=== PATIENT | female | born 1940 | race Caucasian/White ===

== ENCOUNTER 2017-01-04 16:33 | Inpatient (IN) | payer OTHER, MEDICARE ==
[~2017-01-04] VITALS: Ht 157.5 cm; Wt 72.8 kg
[~2017-01-04 16:33] MED LIST: ASPI81TA28 PO; BCTROWC TOP; CHOL100027 PO; CITA10TA4 PO; CRG625 PO; CRS20 PO; CYAN10005 PO; DNSIS60 SQ; DXY100 PO; FERR325T5 PO; FLV1 PO; FLVHFA110 INH; IPRA-2 INH; JNV25 PO; LEVO75TA5 PO; LSX20 PO; MULT-190 PO; OXGN; PANT40TA PO; PRED20TA2 PO; SPRIN INH; SULF500T35 PO; ZINC50TA3 PO; [UNRECOGNIZED DRUG - CODE] PO; [UNRECOGNIZED DRUG - OTHER]; bipap
--- NOTE | 2017-01-04 16:59 | DIAGNOSTIC IMAGING REPORT ---
CHEST ONE VIEW PORTABLE CLINICAL HISTORY: 76 years-old Female presenting with EVALUATE RESPIRATORY DISTRESS.DYSPNEA. TECHNIQUE: Portable upright AP view of the chest was obtained. COMPARISON: 04/10/2017. FINDINGS: Atherosclerosis of aortic arch. Mildly prominent cardiac silhouette, unchanged. Minimal right basilar opacity may be present. Apparent irregular opacities in the right midlung likely represent overlapping vascular structures. No pleural effusion or pneumothorax. Osseous structures and upper abdomen normal. IMPRESSION: 1. Minimal right basilar atelectasis may be present. Otherwise no acute cardiopulmonary disease. Electronically signed by: Shaquille Zhu M.D. 01/04/2017 4:58 PM Dictated Date/Time: 01/04/2017 4:57 PM
--- NOTE | 2017-01-04 17:03 | EMERGENCY ROOM VISIT NOTE ---
History Report prepared by Azra: Gilda Real Under the Supervision of: Dr. Rajeev Gallegos D.O. First contact with patient: 16:35 Stated Complaint: SOB History of Present Illness The patient is a 76 year old female who presents to the Emergency Room with complaints of persistent shortness of breath that began yesterday. Per EMS the patient went to her PCP's office yesterday for increased swelling to her right lower extremity. EMS states that the patient was diagnosed with congestive heart failure and was noted to have an oxygen saturation of 70% in the office. EMS notes that the patient was placed on a new diuretic. EMS states that the patient wears BI-PAP at night. EMS notes that the patient was placed on c-pap enroute to the emergency department and states that has helped her shortness of breath. EMS reports that the patient is chronically on supplemental nasal cannula oxygen. The patient denies any chest pain. Source of History: patient, EMS Onset: yesterday Position: other (global) Quality: other (shortness of breath) Timing: other (persistent) Modifying Factors (Relieving): other (c-pap) Associated Symptoms: No chest pain Note: Associated Symptoms: Increased swelling to her right lower extremity. Review of Systems See HPI for pertinent positives & negatives. A total of 10 systems reviewed and were otherwise negative. Past Medical & Surgical Medical Problems: (1) Anemia of chronic disease (2) Asthma, allergic (3) Benign hypertension (4) Carotid stenosis, bilateral (5) Chronic obstructive lung disease (6) CKD (chronic kidney disease), stage III (7) COPD exacerbation (8) COPD exacerbation (9) Coronary artery disease (10) Crohn s disease (11) Diabetes mellitus type 2 (12) Diastolic CHF (13) Dyslipidemia (14) Encounter for removal of vascular catheter (15) Generalized anxiety disorder (16) History of PSVT (paroxysmal supraventricular tachycardia) (17) Hypothyroidism (18) Osteoporosis (19) Peristomal hernia (20) Respiratory failure, [id number] (21) Small bowel obstruction Surgical Problems: (1) Hernia repair (2) History of carpal tunnel surgery of right wrist (3) History of colostomy (4) S/P appendectomy (5) S/P cardiac cath (6) S/P hysterectomy (7) S/P tonsillectomy and adenoidectomy Family History Diabetes mellitus FH: cancer Heart disease Social History Smoking Status: Former Smoker Alcohol Use: none Drug Use: none Marital Status: , in relationship Housing Status: lives with family Occupation Status: retired Current/Historical Medications Scheduled Aspirin (Aspirin Ec), 81 MG PO DAILY Carvedilol (Carvedilol), 6.25 MG PO BID Cholecalciferol (Vitamin D 1000 Unit), 400 INTER.UNIT PO DAILY Citalopram Hydrobromide (Citalopram Hydrobromide), 10 MG PO DAILY Cyanocobalamin (Vitamin B-12), 1,000 MCG PO DAILY Denosumab (Prolia), 60 MG SQ Q 6 Months Ferrous Sulfate (Ferrous Sulfate), 325 MG PO DAILY Folic Acid (Folic Acid), 1 MG PO DAILY Furosemide (Furosemide), 20-40 MG PO DAILY Home O2 Therapy (Oxygen), 4 LITER NA CONTINOUS Ipratropium-Albuterol (Duoneb), 1 TREATMENT INH Q4H Levothyroxine Sodium (Levothyroxine Sodium), 75 MCG PO DAILY Mupirocin (Bactroban 2% Oint), Unknown Dose TOP TID Ocuvite Preservision (Ocuvite Preservision), 1 TAB PO BID Pantoprazole (Protonix), 40 MG PO BID Rosuvastatin Calcium (Crestor), 20 MG PO DAILY Sitagliptin (Januvia), 25 MG PO DAILY Sulfasalazine (Sulfasalazine), 2 TAB PO TID Tiotropium [place] (Spiriva Handihaler), 1 PUFF INH QAM Torsemide (Torsemide), 2 TAB PO DAILY Zinc (Zinc), 50 MG PO DAILY Durable Medical Equipment [Nocturnal pulse ox] [bipap] Allergies Coded Allergies: No Known Allergies (Verified , 01/04/17) Physical Exam Vital Signs Date Time Temp Pulse Resp B/P (MAP) Pulse Ox O2 Delivery O2 Flow Rate FiO2 01/04/17 18:28 83 20 96/85 98 Mask 4.0 01/04/17 17:09 85 01/04/17 16:51 100 Mask 4.0 01/04/17 16:51 100 Oxymask 4.0 01/04/17 16:45 36.6 99 22 131/53 100 Oxymask 4.0 Physical Exam GENERAL: Patient is awake, alert, somewhat anxious appearing. EYES: The conjunctivae are clear. The pupils are round and reactive. EARS, NOSE, MOUTH AND THROAT: The nose is without any evidence of any deformity. Mucous membranes are moist tongue is midline NECK: The neck is nontender and supple. RESPIRATORY: Diminished breath sounds throughout, rales noted at both bases. No tachypnea or conversational dyspnea. CARDIOVASCULAR: Regular rate and rhythm noted there no murmurs rubs or gallops normal S1 normal S2 GASTROINTESTINAL: The abdomen is soft. Bowel sounds are present in all quadrants. Abdomen is nontender MUSCULOSKELETAL/EXTREMITIES: There is no evidence of gross deformity full range of motion is noted in the hips and shoulders SKIN: Pedal edema noted bilaterally, right greater than left. No calf tenderness. NEUROLOGIC: Patient is awake alert and oriented x3. Medical Decision & Procedures ER Provider Diagnostic Interpretation: Radiology results as stated below per my review and radiologist interpretation: CHEST ONE VIEW PORTABLE CLINICAL HISTORY: 76 years-old Female presenting with EVALUATE RESPIRATORY DISTRESS.DYSPNEA. TECHNIQUE: Portable upright AP view of the chest was obtained. COMPARISON: 04/10/2017. FINDINGS: Atherosclerosis of aortic arch. Mildly prominent cardiac silhouette, unchanged. Minimal right basilar opacity may be present. Apparent irregular opacities in the right midlung likely represent overlapping vascular structures. No pleural effusion or pneumothorax. Osseous structures and upper abdomen normal. IMPRESSION: 1. Minimal right basilar atelectasis may be present. Otherwise no acute cardiopulmonary disease. Electronically signed by: Shaquille Zhu M.D. 01/04/2017 4:58 PM Dictated Date/Time: 01/04/2017 4:57 PM RIGHT VENOUS DOPP LOWER EXT UNILAT CLINICAL HISTORY: RLE pain Right pain. Edema. TECHNIQUE: Venous Doppler COMPARISON STUDY: None FINDINGS: Normal study IMPRESSION: Normal study The above report was generated using voice recognition software. It may contain grammatical, syntax or spelling errors. Electronically signed by: Chilo Wall M.D. 01/04/2017 5:52 PM Dictated Date/Time: 01/04/2017 5:52 PM Laboratory Results 01/04/17 17:00 Red Blood Count 2.94, Mean Corpuscular Volume 101.4, Mean Corpuscular Hemoglobin 29.9, Mean Corpuscular Hemoglobin Concent 29.5, Mean Platelet Volume 10.0, Neutrophils (%) (Auto) 64.1, Lymphocytes (%) (Auto) 19.9, Monocytes (%) ( Auto) 10.2, Eosinophils (%) (Auto) 4.8, Basophils (%) (Auto) 0.5, Neutrophils # (Auto) 5.44, Lymphocytes # (Auto) 1.69, Monocytes # (Auto) 0.87, Eosinophils # ( Auto) 0.41, Basophils # (Auto) 0.04 01/04/17 17:00 Test 01/04/17 17:00 01/04/17 17:30 White Blood Count 8.49 K/uL (4.8-10.8) Red Blood Count 2.94 M/uL (4.2-5.4) Hemoglobin 8.8 g/dL (12.0-16.0) Hematocrit 29.8 % (37-47) Mean Corpuscular Volume 101.4 fL (80-100) Mean Corpuscular Hemoglobin 29.9 pg (25-34) Mean Corpuscular Hemoglobin Concent 29.5 g/dl (32-36) Platelet Count 150 K/uL (130-400) Mean Platelet Volume 10.0 fL (7.4-10.4) Neutrophils (%) (Auto) 64.1 % Lymphocytes (%) (Auto) 19.9 % Monocytes (%) (Auto) 10.2 % Eosinophils (%) (Auto) 4.8 % Basophils (%) (Auto) 0.5 % Neutrophils # (Auto) 5.44 K/uL (1.4-6.5) Lymphocytes # (Auto) 1.69 K/uL (1.2-3.4) Monocytes # (Auto) 0.87 K/uL (0.11-0.59) Eosinophils # (Auto) 0.41 K/uL (0-0.5) Basophils # (Auto) 0.04 K/uL (0-0.2) RDW Standard Deviation 55.8 fL (36.4-46.3) RDW Coefficient of Variation 15.1 % (11.5-14.5) Immature Granulocyte % (Auto) 0.5 % Immature Granulocyte # (Auto) 0.04 K/uL (0.00-0.02) Hypochromasia PRESENT Stomatocytes 1+ Prothrombin Time 11.4 SECONDS (9.0-12.0) Prothromb Time International Ratio 1.1 (0.9-1.1) Activated Partial Thromboplast Time 25.1 SECONDS (21.0-31.0) Partial Thromboplastin Ratio 1.0 Anion Gap 2.0 mmol/L (3-11) Est Creatinine Clear Calc Drug Dose 28.9 ml/min Estimated GFR () 35.4 Estimated GFR (Non- 30.5 BUN/Creatinine Ratio 9.3 (10-20) Calcium Level 8.7 mg/dl (8.5-10.1) Total Bilirubin 0.2 mg/dl (0.2-1) Direct Bilirubin < 0.1 mg/dl (0-0.2) Aspartate Amino Transf (AST/SGOT) 16 U/L (15-37) Alanine Aminotransferase (ALT/SGPT) 13 U/L (12-78) Alkaline Phosphatase 65 U/L (45-117) Total Creatine Kinase 60 U/L (26-192) Pro-B-Type Natriuretic Peptide 1186 pg/ml (0-1800) Total Protein 7.3 gm/dl (6.4-8.2) Albumin 2.9 gm/dl (3.4-5.0) Venous Blood pH 7.31 (7.36-7.41) Venous Blood Partial Pressure CO2 90 mmHg (38.0-50.0) Venous Blood Partial Pressure O2 43 mmHg Venous Blood HCO3 44 mmol/L Venous Blood Oxygen Saturation 74.7 % Venous Blood Base Excess 15.4 mmol/L Laboratory results per my review. Medications Administered Medications (Trade) Dose Ordered Sig/Gilbert Route Start Time Stop Time Status Last Admin Dose Admin Albuterol/ Ipratropium (Duoneb) 3 ml NOW STAT INH 01/04/17 18:21 01/04/17 18:22 DC 01/04/17 18:36 3 ML ECG Indication: SOB/dyspnea Rate (beats per minute): 87 Rhythm: normal sinus Findings: ST depression (Lateral), no ectopy ED Course 1634: The patient was evaluated in room A9B. A complete history and physical examination were performed. 1820: Ordered DuoNeb 3 ml INH. 1823: I discussed the patients case with Marlon Antunez. She is going to evaluate the patient for further treatment. 1825: I reevaluated the patient and she is resting. I discussed the exam findings with her and her family and I discussed the treatment plan. They verbalized complete understanding and agreement. The patient will be evaluated for further treatment. Medical Decision Differential diagnosis: Etiologies such as infections, reactive airway disease, pneumonia, pneumothorax , COPD, CHF, cardiac ischemia, pulmonary embolism, musculoskeletal, gastrointestinal, as well as others were entertained. Nursing notes reviewed. The patient is a 76-year-old female who presented to the emergency department for an evaluation of shortness of breath. The patient was hypoxic reportedly prior to arrival. She was placed on BiPAP because of the severity of her symptoms. She arrived at the emergency Department significantly improved but still had signs of respiratory acidosis. I discussed the patient's laboratory radiographic studies with her. Because of her symptoms I discussed her case with the on-call [facility] hospitalist group. They've agreed to evaluate the patient in the emergency department for further management and disposition. Medication Reconcilliation Current Medication List: was personally reviewed by me Blood Pressure Screening Patient's blood pressure: Normal blood pressure Blood pressure disposition: Did not require urgent referral Consults Time Called: 1820 Consulting Physician: Marlon Antunez Returned Call: 1823 I discussed the patients case with Marlon Antunez. She is going to evaluate the patient for further treatment. Impression Primary Impression: Shortness of breath Additional Impressions: COPD exacerbation Anemia Respiratory acidosis Scribe Attestation The scribe's documentation has been prepared under my direction and personally reviewed by me in its entirety. I confirm that the note above accurately reflects all work, treatment, procedures, and medical decision making performed by me. Departure Information Dispostion Being Evaluated By Hospitalist Referrals Hakan Samano M.D. (PCP) Problem Qualifiers Additional Impressions: Anemia Anemia type: unspecified type Qualified Codes: D64.9 - Anemia, unspecified
[2017-01-04 17:23] LABS: INR 1.1 (0.9-1.1); PROTHROMBIN TIME (PATIENT) 11.4 SECONDS (9.0-12.0)
[2017-01-04 17:29] LABS: HEMATOCRIT 29.8 % (37-47); MEAN CELL VOLUME 101.4 fL (80-100); MEAN CORPUSCULAR HEMOGLOBIN 29.9 pg (25-34); MEAN CORPUSCULAR HGB CONC 29.5 g/dl (32-36); PLATELET COUNT 150 K/uL (130-400); RED BLOOD COUNT 2.94 M/uL (4.2-5.4); WHITE BLOOD COUNT 8.49 K/uL (4.8-10.8)
[2017-01-04 17:38] LABS: BASO % 0.5 %; BASO ABS # 0.04 K/uL (0-0.2); COMPLETE YES; EOS % 4.8 %; HYPOCHROMIA PRESENT; IG% 0.5 %; LYMPH % 19.9 %; LYMPH ABS # 1.69 K/uL (1.2-3.4); MONO % 10.2 %; NEUT % 64.1 %; STOMATOCYTE 1+
[2017-01-04 17:45] LABS: VEN BLD GAS O2 SATURATION 74.7 %; VEN BLOOD GAS BASE EXCESS 15.4 mmol/L
[2017-01-04 17:48] LABS: ALKALINE PHOSPHATASE 65 U/L (45-117); ALT/SGPT 13 U/L (12-78); AST/SGOT 16 U/L (15-37); BLOOD UREA NITROGEN 15 mg/dl (7-18); BUN/CREATININE RATIO 9.3 (10-20); CALCIUM 8.7 mg/dl (8.5-10.1); CARBON DIOXIDE 43 mmol/L (21-32); CHLORIDE 93 mmol/L (98-107); GLUCOSE 102 mg/dl (70-99); POTASSIUM 3.8 mmol/L (3.5-5.1); SODIUM 138 mmol/L (136-145)
--- NOTE | 2017-01-04 17:54 | DIAGNOSTIC IMAGING REPORT ---
RIGHT VENOUS DOPP LOWER EXT UNILAT CLINICAL HISTORY: RLE pain Right pain. Edema. TECHNIQUE: Venous Doppler COMPARISON STUDY: None FINDINGS: Normal study IMPRESSION: Normal study The above report was generated using voice recognition software. It may contain grammatical, syntax or spelling errors. Electronically signed by: Chilo Wall M.D. 01/04/2017 5:52 PM Dictated Date/Time: 01/04/2017 5:52 PM
[2017-01-04] MEDS ORDERED: IPRASOL4 INH (18:13)
[2017-01-04] MEDS ORDERED: DMD20 PO (18:13)
[2017-01-04] MEDS ORDERED: SLFEC500 PO (18:13)
[2017-01-04] MEDS ORDERED: SPRIN/30 INH (18:13)
[2017-01-04] MEDS ORDERED: ALBUT/IPRATROP 3MG/0.5MG NEB 3 ML VIAL INH STA (18:21)
[2017-01-04] MEDS ORDERED: ACETAMINOPHEN 325 MG TAB PO PRN (18:45)
[2017-01-04] MEDS ORDERED: ONDANSETRON INJ 2 MG/ML 2 ML VIAL IV PRN (18:45)
[2017-01-04] MEDS ORDERED: GLUCOSE 10 TABS/TUBE PO PRN (19:45)
[2017-01-04] MEDS ORDERED: GLUCAGON FOR INJ 1 MG VIAL SQ PRN (19:45)
[2017-01-04] MEDS ORDERED: GLUCOSE 40% GEL 15 GM TUBE PO PRN (19:45)
[2017-01-04] MEDS ORDERED: DEXTROSE 50% 50 ML SYR IV PRN (19:45)
[2017-01-04] MEDS ORDERED: NON-FORMULARY MEDICATION (Home O2 Therapy (Oxygen) 4 LITER) SCH (19:45)
[2017-01-04] MEDS: ALBUT/IPRATROP 3MG/0.5MG NEB 3 ML VIAL INH SCH (20:00)
--- NOTE | 2017-01-04 20:04 | History and Physical ---
History & Physical Date & Time of Service: Jan 04, 2017 at 19:48 Chief Complaint: SOB Primary Care Physician: Hakan Samano M.D. History of Present Illness Source: patient, family This is a 76yo F with a PMH of severe COPD, Diastolic CHF, HTN, DM II, CKD IV and CAD who presents with SOB over the past 2 months. States that she has become progressively more short of breath at rest, even on her home O2 of 4L. Her baseline for breathing is to experience SOB with positional change. Over the past month, she has started to have a pleuritic "pressure" with inspiration , with chest pain L>R. Additionally, she noticed a painless swelling of her R leg 3 weeks ago. Denies any calf pain or palpable cords. Was taken to the PCP by her daughter yesterday, where she was noted to have an oxygen saturation of 70%. Patient was started on a new diuretic and instructed to go to ED if SOB worsened. Today, the patient's daughter took her vitals at home and she was found to be hypoxic at 87% on 4L NC and to have a BP of 96/36. Was then brought into the ED by EMS on CPAP. Patient is now satting in the high 90s on a Oxymask. Endorses dyspnea, SOB and pleuritic pain with inspiration. Denies fever, chills, lightheadedness, confusion, cough, wheezing, palpitations, calf pain. Past Medical/Surgical History Medical Problems: (1) Anemia of chronic disease Status: Chronic (2) Asthma, allergic Status: Chronic (3) Benign hypertension Status: Chronic (4) Carotid stenosis, bilateral Permanent Comment: Carotid duplex 10/18/13- likely 70-99% stenosis both ICA Status: Chronic (5) Chronic obstructive lung disease Permanent Comment: Very Severe, on home O2 4L continuous Status: Chronic (6) CKD (chronic kidney disease), stage III Status: Chronic (7) Coronary artery disease Permanent Comment: S/p cath 2007- distal RCA 95% blockage corrected with balloon angioplasty, repeat cath June 2009 showed no significant obstructive disease. Status: Chronic (8) Crohn s disease Permanent Comment: s/p colostomy Status: Chronic (9) Diabetes mellitus type 2 Status: Chronic (10) Diastolic CHF Permanent Comment: echo 03/25/2015-EF = 60-65%; grade I diastolic dysfunction; mild mitral regurgitation Status: Chronic (11) Dyslipidemia Status: Chronic (12) Generalized anxiety disorder Status: Chronic (13) History of PSVT (paroxysmal supraventricular tachycardia) Status: Chronic (14) Hypothyroidism Status: Chronic (15) Osteoporosis Status: Chronic (16) Peristomal hernia Permanent Comment: s/p repair in 2009 and 2012 [place] [facility] [place]: Chronic (17) Small bowel obstruction Status: Resolved Surgical Problems: (1) Hernia repair Permanent Comment: 2009 and 2012 at [facility] [place] Status: Chronic (2) History of carpal tunnel surgery of right wrist Status: Chronic (3) History of colostomy Permanent Comment: [facility] [place]'s disease, 1999 Status: Chronic (4) S/P appendectomy Status: Chronic (5) S/P cardiac cath Permanent Comment: 2007- Distal RCA 95% blockage corrected with balloon angioplasty. Repeat cath June 2009 showed no significant obstructive disease. Status: Chronic (6) S/P hysterectomy Status: Chronic (7) S/P tonsillectomy and adenoidectomy Status: Chronic Family History Diabetes mellitus FH: cancer Heart disease Social History Smoking Status: Former Smoker Drug Use: none Marital Status: , in relationship Housing status: lives with family Occupational Status: retired Immunizations History of Influenza Vaccine: No History of Tetanus Vaccine?: Yes History of Pneumococcal: Yes History of Hepatitis B Vaccine: Yes Multi-Drug Resistant Organisms History of MDRO: No Allergies Coded Allergies: No Known Allergies (Verified , 01/04/17) Home Medications Scheduled Aspirin (Aspirin Ec), 81 MG PO DAILY Carvedilol (Carvedilol), 6.25 MG PO BID Cholecalciferol (Vitamin D 1000 Unit), 400 INTER.UNIT PO DAILY Citalopram Hydrobromide (Citalopram Hydrobromide), 10 MG PO DAILY Cyanocobalamin (Vitamin B-12), 1,000 MCG PO DAILY Denosumab (Prolia), 60 MG SQ Q 6 Months Ferrous Sulfate (Ferrous Sulfate), 325 MG PO DAILY Folic Acid (Folic Acid), 1 MG PO DAILY Furosemide (Furosemide), 20-40 MG PO DAILY Home O2 Therapy (Oxygen), 4 LITER NA CONTINOUS Ipratropium-Albuterol (Duoneb), 1 TREATMENT INH Q4H Levothyroxine Sodium (Levothyroxine Sodium), 75 MCG PO DAILY Mupirocin (Bactroban 2% Oint), Unknown Dose TOP TID Ocuvite Preservision (Ocuvite Preservision), 1 TAB PO BID Pantoprazole (Protonix), 40 MG PO BID Rosuvastatin Calcium (Crestor), 20 MG PO DAILY Sitagliptin (Januvia), 25 MG PO DAILY Sulfasalazine (Sulfasalazine), 2 TAB PO TID Tiotropium [place] (Spiriva Handihaler), 1 PUFF INH QAM Torsemide (Torsemide), 2 TAB PO DAILY Zinc (Zinc), 50 MG PO DAILY Review of Systems Ten systems reviewed and negative except as noted in the HPI. Physical Exam Vital Signs Date Time Temp Pulse Resp B/P (MAP) Pulse Ox O2 Delivery O2 Flow Rate FiO2 01/04/17 19:17 83 18 129/56 99 Mask 4.0 01/04/17 18:28 83 20 96/85 98 Mask 4.0 01/04/17 17:09 85 01/04/17 16:51 100 Mask 4.0 01/04/17 16:51 100 Oxymask 4.0 01/04/17 16:45 36.6 99 22 131/53 100 Oxymask 4.0 General Appearance: no apparent distress Head: normocephalic Eyes: normal inspection ENT: normal ENT inspection, hearing grossly normal Neck: supple Respiratory/Chest: chest non-tender, no respiratory distress, no accessory muscle use, + crackles (at bilateral bases) Cardiovascular: regular rate, rhythm, no murmur Abdomen/GI: normal bowel sounds (Colostomy bag visualized), non tender, soft, no organomegaly Back: normal inspection Extremities/Musculoskelatal: no calf tenderness, normal capillary refill, + pertinent finding (Edema of R>L. Not warm to touch.) Neurologic/Psych: no motor/sensory deficits, alert, normal mood/affect, normal reflexes, oriented x 3 Skin: normal color, warm/dry Diagnostics Laboratory Results Results Past 24 Hours Test 01/04/17 17:00 01/04/17 17:30 Range/Units White Blood Count 8.49 4.8-10.8 K/uL Red Blood Count 2.94 4.2-5.4 M/uL Hemoglobin 8.8 12.0-16.0 g/dL Hematocrit 29.8 37-47 % Mean Corpuscular Volume 101.4 80-100 fL Mean Corpuscular Hemoglobin 29.9 25-34 pg Mean Corpuscular Hemoglobin Concent 29.5 32-36 g/dl Platelet Count 150 130-400 K/uL Mean Platelet Volume 10.0 7.4-10.4 fL Neutrophils (%) (Auto) 64.1 % Lymphocytes (%) (Auto) 19.9 % Monocytes (%) (Auto) 10.2 % Eosinophils (%) (Auto) 4.8 % Basophils (%) (Auto) 0.5 % Neutrophils # (Auto) 5.44 1.4-6.5 K/uL Lymphocytes # (Auto) 1.69 1.2-3.4 K/uL Monocytes # (Auto) 0.87 0.11-0.59 K/uL Eosinophils # (Auto) 0.41 0-0.5 K/uL Basophils # (Auto) 0.04 0-0.2 K/uL RDW Standard Deviation 55.8 36.4-46.3 fL RDW Coefficient of Variation 15.1 11.5-14.5 % Immature Granulocyte % (Auto) 0.5 % Immature Granulocyte # (Auto) 0.04 0.00-0.02 K/uL Hypochromasia PRESENT Stomatocytes 1+ Prothrombin Time 11.4 9.0-12.0 SECONDS Prothromb Time International Ratio 1.1 0.9-1.1 Activated Partial Thromboplast Time 25.1 21.0-31.0 SECONDS Partial Thromboplastin Ratio 1.0 Sodium Level 138 136-145 mmol/L Potassium Level 3.8 3.5-5.1 mmol/L Chloride Level 93 98-107 mmol/L Carbon Dioxide Level 43 21-32 mmol/L Anion Gap 2.0 3-11 mmol/L Blood Urea Nitrogen 15 7-18 mg/dl Creatinine 1.60 0.60-1.20 mg/dl Est Creatinine Clear Calc Drug Dose 28.9 ml/min Estimated GFR () 35.4 Estimated GFR (Non- 30.5 BUN/Creatinine Ratio 9.3 10-20 Random Glucose 102 70-99 mg/dl Calcium Level 8.7 8.5-10.1 mg/dl Total Bilirubin 0.2 0.2-1 mg/dl Direct Bilirubin < 0.1 0-0.2 mg/dl Aspartate Amino Transf (AST/SGOT) 16 15-37 U/L Alanine Aminotransferase (ALT/SGPT) 13 12-78 U/L Alkaline Phosphatase 65 45-117 U/L Total Creatine Kinase 60 26-192 U/L Creatine Kinase MB 1.8 0.5-3.6 ng/ml Creatine Kinase MB Ratio 3.0 0-3.0 Troponin I 0.021 0-0.045 ng/ml Pro-B-Type Natriuretic Peptide 1186 0-1800 pg/ml Total Protein 7.3 6.4-8.2 gm/dl Albumin 2.9 3.4-5.0 gm/dl Venous Blood pH 7.31 7.36-7.41 Venous Blood Partial Pressure CO2 90 38.0-50.0 mmHg Venous Blood Partial Pressure O2 43 mmHg Venous Blood HCO3 44 mmol/L Venous Blood Oxygen Saturation 74.7 % Venous Blood Base Excess 15.4 mmol/L Diagnostic Radiology CXR: Minimal R basilar atelectasis. No acute changes. Lower Extremity U/S: normal Normal EKG Impression Assessment and Plan This is a 76yo F with a PMH of severe COPD, Diastolic CHF, HTN, DM II, CKD IV and CAD who presents with SOB over the past 2 months. Shortness of breath: -Multifactorial, due to COPD, CHF -CXR shows minimal R basilar atelectasis. No acute changes. -Afebrile, no leukocytosis, no consolidation on XR, so not likely precipitated by infection -PE considered with unilateral leg swelling, sedentary lifestyle, pleuritic CP -VQ scan ordered -Echo ordered -Started PO prednisone, home torsemide, continue with Oxymask, around the clock nebs and monitor vitals Chest pain rule out: -Pleuritic pain/pressure, worse with inspiration -R/o ACS; risk factors include HTN, DM II, CAD -Initial troponin: negative -EKG- NSR -CXR- no acute changes -Trend serial cardiac enzymes -Check echo -Repeat EKG in am R leg swelling: -PE considered with unilateral leg swelling, sedentary lifestyle for weeks, pleuritic CP -Lower extremity U/S without evidence of DVT -Moderate risk by Well's criteria -VQ scan ordered instead of CTA due to elevated Cr in the setting of CKD IV Diastolic HF 2/2 HTN: -BNP elevated to 1,186 -Echo ordered (EF 55-60% as of 10/2012) -Continue Torsemide 40mg daily COPD: -SOB at rest for 1-2 months with associated pleuritic CP -Home regimen for COPD includes 4L home O2, duonebs, inhalers -Continue neb treatments, prednisone, BiPap at night -ABG showing chronic compensated respiratory acidosis (pH: 7.34, pCO2: 80, HCO3 : 44) DM II: stable -Last hgb a1c 6.4 (10/2016) -Hold home meds. SSI while in-patient -BG checks AC and qHS CKD IV: -Cr is 1.6, which is at baseline -Avoid nephrotoxic drugs -Check BMP in AM Macrocytic Anemia: -Hgb of 8.8 (baseline 9.4) and MCV of 101.4 -Continue with folate and Vit B12 supplements Hypothyroidism: -Continue home meds DVT Ppx: Heparin Code status: FULL PCP: [facility] Dispo: Likely discharge home once medically stable. PT/OT evals requested. Attending addendum: Agree with the above H&P; please refer to above for more details Patient was brought to the ER for complaints that the patient seems more SOB, more sedentary, and with worsening LE edema. She was seen by her PCP yesterday and was given torsemide and seemed to respond with more urine output, however her edema and SOB persisted and thus the patient was brought to the hospital. Per outpatient notes the patient was hypoxic with O2 sat of 70% yesterday. When her family checked the patients vitals at home, BP was lower than usual SBP in 90's, and oxygen sats were in the 80's. Cardiac: RR, S1 and S2 auscultated, LE edema, no JVD Resp: bibasilar crackles noted, no wheezes, diminished breath sounds GI: soft NT, ND, +BS ACUTE ON CHRONIC RESPIRATORY FAILURE: -hypercapnia and hypoxia prior to ER arrival -likely multifactorial from CHF and possibly COPD, however need to rule out PE -continue with diuresis as tolerated -ABG -monitor daily BMP -daily weights -PO prednisone started -continue with nebs and home meds -obtain a TTE -LE doppler negative -will get VQ scan as unable to do a contrast chest CT due to renal function Level of Care Telemetry Resuscitation Status FULL RESUSCITATION VTE Prophylaxis VTE Risk Assessment Done? Y/N: Yes Risk Level: Moderate Given or contraindicated: Unfractionated heparin SQ
[2017-01-04 20:16] LABS: ALLEN TEST POS (POS); ARTERIAL BLD GAS O2 SATURATION 91.1 % (90-95); ARTERIAL BLOOD GAS BASE EXCESS 15.8 mEq/L (-9-1.8); ARTERIAL BLOOD GAS HCO3 44 mmol/L (19-24); ARTERIAL BLOOD GAS PO2 73 mm/Hg (80-95); ARTERIAL BLOOD GAS pH 7.34 (7.35-7.45); O2 ADMINISTRATION 4 L
[2017-01-04] MEDS: INSULIN ASPART 100 UNITS/ML 3 ML PEN SC SCH (21:00)
[2017-01-04 21:15] VITALS: BP 126/55; PULSE 86; TEMP 36.6; O2SAT 97; Ht 157.5 cm; Wt 72.8 kg
[2017-01-04] MEDS: CARVEDILOL 6.25 MG TAB PO SCH (21:47)
[2017-01-04] MEDS: CEROVITE ADV FORMULA TAB PO SCH (21:47)
[2017-01-04] MEDS: SULFASALAZINE 500 MG TABEC PO SCH (21:48)
[2017-01-04] MEDS: PANTOprazole SOD 40 MG TAB PO SCH (21:48)
[2017-01-04] MEDS ORDERED: LORAZEPAM 0.5 MG TAB PO ONE (22:15)
[2017-01-04] MEDS: HEPARIN SOD 5000 UNIT/0.5 ML CARP SQ SCH (22:48)
[2017-01-04 23:20] VITALS: PULSE 75; O2SAT 96
[2017-01-04 23:50] VITALS: O2SAT 94
[2017-01-04 23:59] VITALS: BP 129/42; PULSE 81; TEMP 36.5; O2SAT 99
[2017-01-05] VITALS (23 sets, daily range): BP systolic 102–128; BP diastolic 42–67; PULSE 78–100; TEMP 36.5–37; O2SAT 74–100
[2017-01-05 05:31] LABS: HEMATOCRIT 27.5 % (37-47); MEAN CELL VOLUME 101.1 fL (80-100); MEAN CORPUSCULAR HEMOGLOBIN 29.8 pg (25-34); MEAN CORPUSCULAR HGB CONC 29.5 g/dl (32-36); MEAN PLATELET VOLUME 10.1 fL (7.4-10.4); PLATELET COUNT 128 K/uL (130-400); RED BLOOD COUNT 2.72 M/uL (4.2-5.4); WHITE BLOOD COUNT 7.15 K/uL (4.8-10.8)
[2017-01-05] MEDS: LEVOTHYROXINE 75 MCG TAB PO SCH (05:43)
[2017-01-05 06:31] LABS: BLOOD UREA NITROGEN 14 mg/dl (7-18); BUN/CREATININE RATIO 10.3 (10-20); CALCIUM 8.6 mg/dl (8.5-10.1); CARBON DIOXIDE 45 mmol/L (21-32); CHLORIDE 92 mmol/L (98-107); GLUCOSE 95 mg/dl (70-99); POTASSIUM 3.2 mmol/L (3.5-5.1); SODIUM 139 mmol/L (136-145)
[2017-01-05] MEDS: ALBUT/IPRATROP 3MG/0.5MG NEB 3 ML VIAL INH SCH ×4 (07:17→19:45)
--- NOTE | 2017-01-05 07:17 | Clinical Documentation Query ---
MENA Harrison : CLINICAL DOCUMENTATION QUERIES QUERY 1 OF 2 Patient is a 76 year old female presenting for evaluation and treatment of SOB. Documentation includes "diastolic CHF 2/2 HTN". Consider explicit documentation of acuity as this cannot be assumed by the professional rehab manager. Thank you. In your clinical opinion is this patient being managed for: ( ) Acute on chronic diastolic (congestive) heart failure ( ) Other explanation of clinical findings (Please Explain) ( ) Unable to determine (Please Define) ( ) Need to Discuss ( ) Not Agree The medical record reflects the following clinical findings, treatment, and risk factors. Clinical Indicators: As above Treatment: Echocardiogram, Bumex, ICU admission, oxygen, I/O, daily weights. Risk Factors: Age, hypertension QUERY 2 OF 2 Patient noted to utilize home O2 at 4L/min. At PCP office, SpO2 noted to be 70%. Day of admission, noted to be 87% on home dose of supplemental O2. Additionally, ABG noted a nearly compensated respiratory acidosis with significant hypercarbia noted in the setting of COPD. As appropriate, consider capture of the severity of these conditions as noted below as there appear to be both acute, chronic, hypercarbic, and hypoxemic components in this patient. In your clinical opinion is this patient being managed for: ( ) Acute on chronic hypoxic and chronic hypercarbic respiratory failure ( ) Other explanation of clinical findings (Please Explain) ( ) Unable to determine (Please Define) ( ) Need to Discuss ( ) Not Agree The medical record reflects the following clinical findings, treatment, and risk factors. Clinical Indicators: Treatment: Supplemental O2, initially CPAP, radiology, VQ scan, echocardiogram, Torsemide, prednisone, neb treatments, BiPAP at HS Risk Factors:COPD, diastolic CHF Please clarify and document your clinical opinion in the progress notes and discharge summary. Terms such as "probable", "suspected", "likely", "questionable", "possible", or "still to be ruled out" are acceptable. IF IN AGREEMENT, YOU MUST DOCUMENT ABOVE DIAGNOSTIC STATEMENT IN DAILY PROGRESS NOTES AND DISCHARGE SUMMARY. This document is not part of the patient's record. Thank You, Joselo Casas, RN [phone]
[2017-01-05] MEDS: TIOTROPIUM BROMIDE 5 PUFF/90 MCG INH INH SCH (08:23)
[2017-01-05] MEDS: SULFASALAZINE 500 MG TABEC PO SCH ×3 (08:24→20:08)
[2017-01-05] MEDS: ZINC SULFATE 220 MG CAP PO SCH (08:24)
[2017-01-05] MEDS: CITALOPRAM 20 MG TAB PO SCH (08:24)
[2017-01-05] MEDS: PANTOprazole SOD 40 MG TAB PO SCH ×2 (08:24→20:09)
[2017-01-05] MEDS: TORSEMIDE 20 MG TAB PO SCH (08:25)
[2017-01-05] MEDS: ROSUVASTATIN CALCIUM 20 MG TAB PO SCH (08:25)
[2017-01-05] MEDS: CEROVITE ADV FORMULA TAB PO SCH ×2 (08:26→20:09)
[2017-01-05] MEDS: ASPIRIN 81 MG ECTAB PO SCH (08:27)
[2017-01-05] MEDS: CHOLECALCIFEROL 1000 INTER.UNIT TAB PO SCH (08:28)
[2017-01-05] MEDS: FERROUS SULFATE 325 MG TAB PO SCH (08:28)
[2017-01-05] MEDS: CARVEDILOL 6.25 MG TAB PO SCH ×2 (08:29→20:08)
[2017-01-05] MEDS: CYANOCOBALAMIN 500 MCG TAB (VIT B-12) PO SCH (08:29)
[2017-01-05] MEDS: INSULIN ASPART 100 UNITS/ML 3 ML PEN SC SCH ×4 (08:31→20:29)
[2017-01-05] MEDS: HEPARIN SOD 5000 UNIT/0.5 ML CARP SQ SCH ×2 (08:33→20:13)
--- NOTE | 2017-01-05 10:44 | Pulmonary Consultation ---
History General Date of Service: Jan 05, 2017. Stated Complaint: Copd Exacerbation HPI The patient is a 76 year old female who presents to [facility] with complaints of Copd Exacerbation. The patient's primary care provider is Hakan Samano M.D.. Mrs. Hardwick is a 68-year-old female with history of severe COPD (FEV1 of only 20%) on 4 L home oxygen and BiPAP at night, diastolic CHF, diabetes type 2 , hypertension, coronary artery disease and chronic kidney disease stage IV who was admitted on 01/04/2017 for progressive dyspnea at rest. He states that over the last few days shes had increasing pleuritic chest pain on deep inspiration on the left side greater than the right as well as right lower extremity swelling for the last 3 weeks. She normally has dyspnea on exertion with minimal position changes however felt that her breathing was more labored. She saw her PMD 1 day prior to admission he noted that her pulse oximetry was in the 70s and started her on a new diuretic for possible congestive heart failure. Her daughter checked her vital signs at home and noticed that she was hypoxic at 87% on 4 L nasal cannula at which was associated with a blood pressure of 96/36. At that time they called EMS for transfer to emergency room. She is currently being followed by Dr. Pabon. She is currently on Atrovent HFA 2 puff q6h, Budesonide via nebulizer BID, Spiriva handihaler 1 puff daily, Performist nebulizer q12h and Xopenex 2 puffs q6h.She has history of previous intubation in June 2012. She denies any fevers, chills, hemoptysis, chest tightness or wheezing. She has chronic cough with thick yellowish to greenish sputum. She states that its relatively unchanged. She denies any sick contacts or recent travel. Her baseline exercise tolerance is limited due to baseline shortness of breath on exertion. She can only walk a few steps. In the ER her initial vital signs were P 83, BP 96/85, RR 20, SaO2 98% on 4L facemask. Hematology labs significant for hemoglobin of 8.1, MCV of 101, platelet 128. Chemistry significant for potassium of 3.2, carbon dioxide 45, BUN of 14 and creatinine of 1.4. Troponin 0.021, 0.022. Her proBNP was 1186. Albumin was 2.9 ABG showed a pH of 7.34, PCO2 of 83, PO2 of 73, calculated bicarbonate of 44 and oxygen saturation of 91.1%. Chest x-ray was done which showed minimal right basilar atelectasis. Right venous Doppler lower extremity showed no DVT. She was admitted for acute on chronic hypercapnic respiratory failure. She was initially placed on titrated to oxygen mask She was started on prednisone 40 mg daily, Spiriva HandiHaler 1 puff, ipratropium/albuterol inhaler 4 times daily for a respiratory standpoint. She continues to be on torsemide for diuretic. Vital signs this morning, 36.5C blood pressure 116/48, pulse 78-84, respiratory rate 618-20 pulse ox 96- percent on 3-6 L nasal cannula. She states that she is feeling much better. All Other Symptoms All Other Systems: Reviewed and Negative Past Medical History Past Medical History: Past medical history Severe COPD on long-term oxygen therapy 4 L nasal cannula (COPD Class D) Acute on chronic hypoxic respiratory failure requiring intubation will Diabetes type 2 Anemia of chronic disease Hypothyroidism Hypertension CK D stage III CAD status post cath in 2007distal RCA 95% blockage corrected with balloon angioplasty, repeat June 2009 showed specific significant obstructive disease Diastolic CHFTTE done on 03/25/2015 showed EF is 60-65%, with grade 1 diastolic dysfunction and mild mitral regurgitation Paroxysmal supraventricular tachycardia Coronary stenosis bilaterally, carotid duplex on 10/18/2013likely 70-99% stenosis both ICA Crohns disease status post colostomy in 1999 hernia status post repair in 2009 and 2012 at [facility] [place] Dyslipidemia Generalized anxiety disorder Past Surgical History: Surgical history Hernia repair Carpal tunnel surgery of right wrist Colostomy for Crohns disease in 1999 Appendectomy Cardiac cath in 2007 and repeat cath in 2009 Hysterectomy Tonsillectomy and adenoidectomy Family History Diabetes mellitus FH: cancer Heart disease Family history Father from cancer, mother from diabetes and heart disease. Social History Social history Previous tobacco use of 60 pack years quit in [id number] alcohol use or illicit drug use. She is retired. No occupational known exposures. Hx Tobacco Use In Past Year?: No (QYUIT IN 2007) Smoking Status: Former Smoker Marital status: , in relationship Housing status: lives with family Occupational Status: retired Immunizations History of Influenza Vaccine: No History of Tetanus Vaccine?: Yes History of Pneumococcal: Yes History of Hepatitis B Vaccine: Yes History of MDRO History of MDRO: No Allergies Coded Allergies: No Known Allergies (Verified , 01/04/17) Current Medications Reported Home Medications Medications Dose Route/Sig Max Daily Dose Days Date Category Dose Instructions Sulfasalazine 500 Mg Tabec 2 Tab PO TID 01/04/17 Reported Duoneb (Ipratropium-Albuterol) 3 Ml Nebu 1 Treatment INH Q4H 01/04/17 Reported Spiriva Handihaler (Tiotropium Jewett) 30 Puff/540 Mcg Aerp 1 Puff INH QAM 01/04/17 Reported Torsemide 20 Mg Tab 2 Tab PO DAILY 01/04/17 Reported Bactroban 2% Oint (Mupirocin) Unknown Strength Oint Unknown Dose TOP TID 04/10/16 Reported Ocuvite Preservision (Multivitamins/Minerals) 1 Tab Tab 1 Tab PO BID 04/10/16 Reported Protonix (Pantoprazole Sodium) 40 Mg Tab 40 Mg PO BID 04/10/16 Reported [Nocturnal pulse ox] 12/11/15 Rx Overnight pulse oximetry study on 4 L via nasal cannula [bipap] 12/11/15 Rx BiPap tubing, mask Settings: 04/09 with oxygen Aspirin Ec (Aspirin) 81 Mg Tab 81 Mg PO DAILY 12/07/15 Reported Ferrous Sulfate 325 Mg Tab 325 Mg PO DAILY 12/07/15 Reported Folic Acid 1 Mg Tab 1 Mg PO DAILY 12/07/15 Reported Citalopram Hydrobromide 10 Mg Tab 10 Mg PO DAILY 12/07/15 Reported Crestor (Rosuvastatin Calcium) 20 Mg Tab 20 Mg PO DAILY 12/07/15 Reported Furosemide 20 Mg Tab 20-40 Mg PO DAILY 12/07/15 Reported Carvedilol 6.25 Mg Tab 6.25 Mg PO BID 12/07/15 Reported Januvia (Sitagliptin) 25 Mg Tab 25 Mg PO DAILY 12/07/15 Reported Levothyroxine Sodium 75 Mcg Tab 75 Mcg PO DAILY 03/25/15 Reported Prolia (Denosumab) 60 Mg/1 Ml Inj 60 Mg SQ Q 6 MONTHS 07/26/14 Reported Zinc 50 Mg Tab 50 Mg PO DAILY 01/21/13 Reported Vitamin B-12 (Cyanocobalamin) 1,000 Mcg Tab 1,000 Mcg PO DAILY 01/21/13 Reported Oxygen Gas 4 Liter NA CONTINOUS 01/21/13 Reported Vitamin D 1000 Unit (Cholecalciferol) 1,000 Unit Cap 400 Inter.unit PO DAILY 06/09/12 Reported Physical Physical Exam Vital Signs: Date Time Temp Pulse Resp B/P (MAP) Pulse Ox O2 Delivery O2 Flow Rate FiO2 01/05/17 09:49 84 17 107/42 (63) 95 01/05/17 09:46 100 19 106/43 (64) 74 01/05/17 09:42 85 19 128/50 (76) 01/05/17 09:00 85 17 94 01/05/17 08:15 36.8 82 20 102/48 (66) 98 Nasal Cannula 4.0 01/05/17 08:00 85 22 94 01/05/17 08:00 96 Nasal Cannula 4.0 01/05/17 07:15 84 16 99 Nasal Cannula 3.0 01/05/17 07:00 82 23 100 01/05/17 04:00 96 BiPAP 6.0 01/05/17 04:00 36.5 78 20 116/48 (70) 96 BiPAP 6.0 01/04/17 23:59 36.5 81 14 129/42 (71) 99 BiPAP 6.0 01/04/17 23:59 BiPAP 6.0 01/04/17 23:50 94 6.0 01/04/17 23:20 75 96 4.0 01/04/17 21:15 36.6 86 20 126/55 97 Nasal Cannula 4.0 01/04/17 20:34 88 20 138/56 96 Mask 4.0 01/04/17 19:17 83 18 129/56 99 Mask 4.0 01/04/17 18:28 83 20 96/85 98 Mask 4.0 01/04/17 17:09 85 01/04/17 16:51 100 Mask 4.0 01/04/17 16:51 100 Oxymask 4.0 01/04/17 16:45 36.6 99 22 131/53 100 Oxymask 4.0 General Appearance: WELL-APPEARING, WD/WN, NO APPARENT DISTRESS Head: NORMOCEPHALIC, ATRAUMATIC Eyes: PERRLA, NO DISCHARGE, EOMI, SCLERAE NORMAL, CONJUNCTIVAE NORMAL ENT: NORMAL NASAL EXAM, NORMAL MOUTH EXAM Neck: NORMAL RANGE OF MOTION, NO TENDERNESS, TRACHEA MIDLINE, NO STRIDOR, SUPPLE (Decrease breath sounds bilaterally, no crackles or wheezes present) Respiratory: NO RESPIRATORY DISTRESS (Decreased breath sounds bilaterally, no crackles or wheezes heard. No use of accessory muscles of respiration. Speaking in full sentences.) Cardiovasular: REGULAR RATE/RHYTHM, NORMAL S1S2, NO MURMUR, NORMAL PERIPHERAL PULSES Abdomen: NON TENDER, NORMAL BOWEL SOUNDS (Colostomy bag present) Genitourinary - Female: EXTERNAL GENITALIA NORMAL Back: NORMAL INSPECTION, NO MIDLINE TENDERNESS Edema: Bilateral LE (1+) Neuro: ALERT, ORIENTED x 3, NORMAL SPEECH Psychiatric: NORMAL AFFECT, NO SUICIDAL IDEATION, CONTRACTS FOR SAFETY Diagnostics Labs Results Past 24 Hours Test 01/04/17 17:00 01/04/17 17:30 01/04/17 20:06 01/04/17 21:58 Range/Units White Blood Count 8.49 4.8-10.8 K/uL Red Blood Count 2.94 4.2-5.4 M/uL Hemoglobin 8.8 12.0-16.0 g/dL Hematocrit 29.8 37-47 % Mean Corpuscular Volume 101.4 80-100 fL Mean Corpuscular Hemoglobin 29.9 25-34 pg Mean Corpuscular Hemoglobin Concent 29.5 32-36 g/dl Platelet Count 150 130-400 K/uL Mean Platelet Volume 10.0 7.4-10.4 fL Neutrophils (%) (Auto) 64.1 % Lymphocytes (%) (Auto) 19.9 % Monocytes (%) (Auto) 10.2 % Eosinophils (%) (Auto) 4.8 % Basophils (%) (Auto) 0.5 % Neutrophils # (Auto) 5.44 1.4-6.5 K/uL Lymphocytes # (Auto) 1.69 1.2-3.4 K/uL Monocytes # (Auto) 0.87 0.11-0.59 K/uL Eosinophils # (Auto) 0.41 0-0.5 K/uL Basophils # (Auto) 0.04 0-0.2 K/uL RDW Standard Deviation 55.8 36.4-46.3 fL RDW Coefficient of Variation 15.1 11.5-14.5 % Immature Granulocyte % (Auto) 0.5 % Immature Granulocyte # (Auto) 0.04 0.00-0.02 K/uL Hypochromasia PRESENT Stomatocytes 1+ Prothrombin Time 11.4 9.0-12.0 SECONDS Prothromb Time International Ratio 1.1 0.9-1.1 Activated Partial Thromboplast Time 25.1 21.0-31.0 SECONDS Partial Thromboplastin Ratio 1.0 Sodium Level 138 136-145 mmol/L Potassium Level 3.8 3.5-5.1 mmol/L Chloride Level 93 98-107 mmol/L Carbon Dioxide Level 43 21-32 mmol/L Anion Gap 2.0 3-11 mmol/L Blood Urea Nitrogen 15 7-18 mg/dl Creatinine 1.60 0.60-1.20 mg/dl Est Creatinine Clear Calc Drug Dose 28.9 ml/min Estimated GFR () 35.4 Estimated GFR (Non- 30.5 BUN/Creatinine Ratio 9.3 10-20 Random Glucose 102 70-99 mg/dl Calcium Level 8.7 8.5-10.1 mg/dl Total Bilirubin 0.2 0.2-1 mg/dl Direct Bilirubin < 0.1 0-0.2 mg/dl Aspartate Amino Transf (AST/SGOT) 16 15-37 U/L Alanine Aminotransferase (ALT/SGPT) 13 12-78 U/L Alkaline Phosphatase 65 45-117 U/L Total Creatine Kinase 60 26-192 U/L Creatine Kinase MB 1.8 0.5-3.6 ng/ml Creatine Kinase MB Ratio 3.0 0-3.0 Troponin I 0.021 0-0.045 ng/ml Pro-B-Type Natriuretic Peptide 1186 0-1800 pg/ml Total Protein 7.3 6.4-8.2 gm/dl Albumin 2.9 3.4-5.0 gm/dl Venous Blood pH 7.31 7.36-7.41 Venous Blood Partial Pressure CO2 90 38.0-50.0 mmHg Venous Blood Partial Pressure O2 43 mmHg Venous Blood HCO3 44 mmol/L Venous Blood Oxygen Saturation 74.7 % Venous Blood Base Excess 15.4 mmol/L Arterial Blood pH 7.34 7.35-7.45 Arterial Blood Partial Pressure CO2 83 35-46 mmHg Arterial Blood Partial Pressure O2 73 80-95 mm/Hg Arterial Blood HCO3 44 19-24 mmol/L Arterial Blood Oxygen Saturation 91.1 90-95 % Arterial Blood Base Excess 15.8 -9-1.8 mEq/L Arterial Blood Gas Delivery 4 L Fasutino Test POS POS Bedside Glucose 131 70-90 mg/dl Test 01/04/17 23:00 01/04/17 23:50 01/05/17 04:55 Range/Units Creatine Kinase MB Ratio 0-3.0 Creatine Kinase MB 1.9 1.5 0.5-3.6 ng/ml Troponin I 0.021 0.022 0-0.045 ng/ml White Blood Count 7.15 4.8-10.8 K/uL Red Blood Count 2.72 4.2-5.4 M/uL Hemoglobin 8.1 12.0-16.0 g/dL Hematocrit 27.5 37-47 % Mean Corpuscular Volume 101.1 80-100 fL Mean Corpuscular Hemoglobin 29.8 25-34 pg Mean Corpuscular Hemoglobin Concent 29.5 32-36 g/dl RDW Standard Deviation 55.6 36.4-46.3 fL RDW Coefficient of Variation 15.1 11.5-14.5 % Platelet Count 128 130-400 K/uL Mean Platelet Volume 10.1 7.4-10.4 fL Sodium Level 139 136-145 mmol/L Potassium Level 3.2 3.5-5.1 mmol/L Chloride Level 92 98-107 mmol/L Carbon Dioxide Level 45 21-32 mmol/L Anion Gap 2.0 3-11 mmol/L Blood Urea Nitrogen 14 7-18 mg/dl Creatinine 1.40 0.60-1.20 mg/dl Est Creatinine Clear Calc Drug Dose 31.2 ml/min Estimated GFR () 41.6 Estimated GFR (Non- 35.9 BUN/Creatinine Ratio 10.3 10-20 Random Glucose 95 70-99 mg/dl Calcium Level 8.6 8.5-10.1 mg/dl Previous studies Microbiology 09/15/2015 sputum positive for Pseudomonas aeruginosa 03/25/2015 sputum positive for pseudomonas aeruginosa 08/13/2014 urine culture positive for Escherichia coli and Providencia Rettgeri 07/26/2014 urine culture positive for gamma strep not enterococcus 06/20/2012 tracheal bronchial washings positive for Irene albicans 06/11/2012 sputum from vent suction trap positive for Irene albicans 02/12/2010 urine culture positive for Gardnerella like bacilli Thoracentesis 06/20/2012 was negative for any bacterial fungal or AFB growth. It was also negative for malignant cells. Diagnostic Radiology Chest x-ray 01/04/2017 FINDINGS: Atherosclerosis of aortic arch. Mildly prominent cardiac silhouette, unchanged. Minimal right basilar opacity may be present. Apparent irregular opacities in the right midlung likely represent overlapping vascular structures. No pleural effusion or pneumothorax. Osseous structures and upper abdomen normal. IMPRESSION: 1. Minimal right basilar atelectasis may be present. Otherwise no acute cardiopulmonary disease. CT thoracic spine 04/10/2016 IMPRESSION: 1. Multilevel degenerative change. No acute fractures or traumatic subluxations identified 2. Pulmonary emphysema 3. Lower lobe bronchial wall thickening and mucous plugging 4. 11 mm left upper lobe pulmonary nodule. A 2 month follow-up study is recommended. CT chest from 03/27/2015 IMPRESSION: 1. Dense consolidative airspace opacity involving the majority of the right lower lobe which has progressed. There is also near complete opacification of the right lower lobe segmental bronchi. Findings may represent a pneumonia, possible secondary to aspiration. However, an underlying right lower lobe mass could also have a similar appearance. Follow-up bronchoscopy should be considered for further evaluation. 2. Small right and trace left pleural fusion. 3. Emphysema. 4. A single enlarged subcarinal lymph node which is increased in size. This bears watching on future examinations. 5. Spiculated 1 cm nodule within the right upper lobe remains unchanged. This also requires follow-up. EKG EKG from 01/04/2017 Ventricular rate of 87 bpm Normal sinus rhythm Normal ECG When compared with ECG of 11-APR-2016 06:37, Impression Assessment and Plan Acute on chronic hypoxic and hypercapnic respiratory failure secondary to end- stage COPD Diastolic dysfunction Continue supplemental oxygen therapy however be careful not to hyperoxygenate patient as this can worsen carbon dioxide levels. Continue with BiPAP at night and for increased work of breathing. Repeat ABG. Continue with Spiriva, Symbicort as well as Atrovent/ albuterol nebulizer treatments Obtain sputum culture. Continue with corticosteroids for 5-7 days Treat with Levaquin for 5-7 days. Will start daliresp to decrease risk of exacerbation Continue with flutter valve and aggressive chest PT. Patient will likely benefit from a pulmonary rehab program as an outpatient. Nutritional status should be optimized. She should follow up with Dr. Pabon upon discharge. I appreciate the consult and will continue to follow with you.
[2017-01-05] MEDS ORDERED: LEVOFLOXACIN / D5W 500 MG in PREMIXED IN D5W 100 ML IV ONE (11:00)
--- NOTE | 2017-01-05 11:05 | ECHOCARDIOGRAM REPORT ---
*NOTICE TO RECEIVING DEMOCRAT AGENCY This information is strictly Confidential and protected under [place] law. [place] law prohibits you from making any further disclosure of this information unless further disclosure is expressly permitted by the written consent of the person to whom it pertains or is authorized by law. A general authorization for the release of medical or other information is not sufficient for this purpose. Hospital accepts no responsibility if the information is made available to any other person, INCLUDING THE PATIENT. Interpretation Summary * Name: NEFTALI SHORE Study Date: 01/05/2017 06:51 AM BP: 116/48 mmHg * [facility] HR: 82 * : 1940 (M/d/yy) Gender: Female Height: 62 in * Age: 76 yrs Ethnicity: CA Weight: 182 lb * Ordering Physician: Coreen Daniel * Referring Physician: Self, Referred * Performed By: Gilda Rodrigues RDCS * * Reason For Study: CHEST PAIN, SOB * BSA: 1.8 m2 * -- Conclusions -- * Normal LV chamber size with mild concentric LVH. * Normal LV systolic function, EF 55-60%. * No segmental left ventricular wall motion abnormalities are noted. * Grade I diastolic dysfunction. * Aortic valve sclerosis mild, without significant aortic valvular stenosis. Procedure Details * A complete two-dimensional transthoracic echocardiogram was performed (2D, M-mode, Doppler and color flow Doppler). Left Ventricle * The left ventricle is normal in size. * There is mild concentric left ventricular hypertrophy. * Ejection Fraction = 55-60%. * Left ventricular systolic function is normal. * No segmental left ventricular wall motion abnormalities are noted. * The left ventricular wall motion is normal at rest. Right Ventricle * The right ventricular cavity size is normal (basal dimension <4.2 cm in right ventricular apical 4-chamber view). * The right ventricular systolic function is normal as assessed by tricuspid annular plane systolic excursion (TAPSE) (normal >1.5 cm). Atria * The left atrial size is normal. * Right atrial size is normal. * No ASD detected; PFO is not assessed. Mitral Valve * The mitral valve is normal in structure and function. Tricuspid Valve * The tricuspid valve is normal in structure and function. Aortic Valve * The aortic valve is trileaflet. * Aortic valve sclerosis mild, without significant aortic valvular stenosis. * There is no significant aortic regurgitation. Pulmonic Valve * The pulmonary valve is not well seen, but the Doppler examination is normal without significant regurgitation or stenosis. Great Vessels * The aortic root is normal size. Pericardium/Pleural * There is no pericardial effusion. Left Ventricular Diastolic Function * Grade I diastolic dysfunction, (abnormal relaxation pattern). MMode 2D Measurements and Calculations IVSd 1.4 cm IVSs 1.9 cm LVIDd 4.5 cm LVIDs 3.3 cm LVPWd 1.2 cm LVPWs 1.8 cm IVS/LVPW 1.1 FS 26.5 % EDV(Teich) 91.6 ml ESV(Teich) 44.0 ml EF(Teich) 52.0 % EDV(cubed) 90.0 ml ESV(cubed) 35.8 ml EF(cubed) 60.2 % % IVS thick 37.1 % % LVPW thick 43.3 % LV mass(C)d 225.8 grams LV mass(C)dI 122.9 grams/m\S\2 LV mass(C)s 254.5 grams LV mass(C)sI 138.6 grams/m\S\2 SV(Teich) 47.6 ml SI(Teich) 25.9 ml/m\S\2 SV(cubed) 54.2 ml SI(cubed) 29.5 ml/m\S\2 Ao root diam 3.2 cm Ao root area 8.2 cm\S\2 LA dimension 3.3 cm LA/Ao 1.0 LVAd ap4 30.1 cm\S\2 LVLd ap4 8.0 cm EDV(MOD-sp4) 94.9 ml EDV(sp4-el) 95.9 ml LVAs ap4 20.6 cm\S\2 LVLs ap4 7.5 cm ESV(MOD-sp4) 49.8 ml ESV(sp4-el) 48.1 ml EF(MOD-sp4) 47.5 % EF(sp4-el) 49.8 % LVAd ap2 26.3 cm\S\2 LVLd ap2 7.6 cm EDV(MOD-sp2) 78.7 ml EDV(sp2-el) 78.0 ml LVAs ap2 17.4 cm\S\2 LVLs ap2 7.3 cm ESV(MOD-sp2) 38.0 ml ESV(sp2-el) 35.3 ml EF(MOD-sp2) 51.7 % EF(sp2-el) 54.7 % LVLd %diff -6.34 % EDV(MOD-bp) 89.7 ml LVLs %diff -2.76 % ESV(MOD-bp) 43.8 ml EF(MOD-bp) 51.2 % SV(MOD-sp4) 45.1 ml SI(MOD-sp4) 24.6 ml/m\S\2 SV(MOD-sp2) 40.7 ml SI(MOD-sp2) 22.2 ml/m\S\2 SV(MOD-bp) 45.9 ml SI(MOD-bp) 25.0 ml/m\S\2 SV(sp4-el) 47.8 ml SI(sp4-el) 26.0 ml/m\S\2 SV(sp2-el) 42.7 ml SI(sp2-el) 23.2 ml/m\S\2 Doppler Measurements and Calculations MV E max barbara 101.2 cm/sec MV A max barbara 110.1 cm/sec MV E/A 0.92 MV dec time 0.15 sec Ao V2 max 102.1 cm/sec Ao max PG 4.2 mmHg Ao max PG (full) 1.9 mmHg LV V1 max PG 2.3 mmHg LV V1 max 76.0 cm/sec
[2017-01-05] MEDS ORDERED: POTASSIUM CHLORIDE 10 MEQ TABCR PO ONE (11:15)
[2017-01-05] MEDS: ROFLUMILAST 500 MCG TAB PO SCH (11:29)
--- NOTE | 2017-01-05 13:29 | DIAGNOSTIC IMAGING REPORT ---
LUNG IMAGING VQ CLINICAL HISTORY: 76 years-old Female presenting with Unilateral swelling in R leg . TECHNIQUE: Immediately following the inhalation of 33 mCi of technetium 99m DTPA for the ventilation scan and the intravenous administration of 5.3 mCi of technetium 99 M MAA for the perfusion scan, anterior, oblique, lateral, and posterior views of the chest were obtained. COMPARISON: 08/02/2014. FINDINGS: Prominent central deposition of ventilation radiotracer. Markedly heterogeneous ventilation consistent with known emphysema. This correlates to a heterogeneous perfusion defects, which could also be seen in the setting of emphysema. The most apparent perfusion defect is noted in the right posterolateral base with matched photopenia on ventilation and vague opacity on chest x-ray. IMPRESSION: This is nondiagnostic for pulmonary embolus by modified PIOPED II criteria given the dominant finding of solitary matched ventilation, perfusion, and chest x-ray defect in the posterior lateral basal segment other right lower lobe. This appearance could represent pleural fluid or paraseptal emphysema. Given the findings on ventilation, emphysema most likely accounts for this appearance. Electronically signed by: Shaquille Zhu M.D. 01/05/2017 1:28 PM Dictated Date/Time: 01/05/2017 1:09 PM
--- NOTE | 2017-01-05 17:03 | Progress Note ---
Medicine Progress Note Date & Time of Visit: Jan 05, 2017 at 16:28. Subjective Pt was seen and examined Lying in bed with no acute distress with at bedside Pt said that her breathing feels a little bit better denies any chest pain, palpitation, dizziness and fever Objective Last 8 Hrs Date Time Temp Pulse Resp B/P (MAP) Pulse Ox O2 Delivery O2 Flow Rate FiO2 01/05/17 15:36 83 16 98 Nasal Cannula 4.0 01/05/17 14:00 87 20 95 01/05/17 13:35 78 24 116/45 (68) 98 01/05/17 12:34 36.7 116/45 (68) 01/05/17 12:30 96 Nasal Cannula 4.0 01/05/17 12:00 86 20 93 01/05/17 11:07 79 16 99 Nasal Cannula 4.0 01/05/17 09:49 84 17 107/42 (63) 95 01/05/17 09:46 100 19 106/43 (64) 74 01/05/17 09:46 95 01/05/17 09:42 85 19 128/50 (76) 01/05/17 09:00 85 17 94 Physical Exam: General- No acute distress Head- atraumatic Eyes- PERRL, EOMI ENT- oropharynx clear Neck- supple, no JVD Lungs- Decrease BS Heart- regular rhythm; no murmur Abdomen- normal bowel sounds, soft Extremities- no calf tenderness Neuro- alert, oriented x 3; PERRL, EOMI; no facial palsy Skin- warm & dry Laboratory Results: Last 24 Hours Test 01/04/17 17:00 01/04/17 17:30 01/04/17 20:06 01/04/17 21:58 White Blood Count 8.49 K/uL Red Blood Count 2.94 M/uL Hemoglobin 8.8 g/dL Hematocrit 29.8 % Mean Corpuscular Volume 101.4 fL Mean Corpuscular Hemoglobin 29.9 pg Mean Corpuscular Hemoglobin Concent 29.5 g/dl Platelet Count 150 K/uL Mean Platelet Volume 10.0 fL Neutrophils (%) (Auto) 64.1 % Lymphocytes (%) (Auto) 19.9 % Monocytes (%) (Auto) 10.2 % Eosinophils (%) (Auto) 4.8 % Basophils (%) (Auto) 0.5 % Neutrophils # (Auto) 5.44 K/uL Lymphocytes # (Auto) 1.69 K/uL Monocytes # (Auto) 0.87 K/uL Eosinophils # (Auto) 0.41 K/uL Basophils # (Auto) 0.04 K/uL RDW Standard Deviation 55.8 fL RDW Coefficient of Variation 15.1 % Immature Granulocyte % (Auto) 0.5 % Immature Granulocyte # (Auto) 0.04 K/uL Hypochromasia PRESENT Stomatocytes 1+ Prothrombin Time 11.4 SECONDS Prothromb Time International Ratio 1.1 Activated Partial Thromboplast Time 25.1 SECONDS Partial Thromboplastin Ratio 1.0 Sodium Level 138 mmol/L Potassium Level 3.8 mmol/L Chloride Level 93 mmol/L Carbon Dioxide Level 43 mmol/L Anion Gap 2.0 mmol/L Blood Urea Nitrogen 15 mg/dl Creatinine 1.60 mg/dl Est Creatinine Clear Calc Drug Dose 28.9 ml/min Estimated GFR () 35.4 Estimated GFR (Non- 30.5 BUN/Creatinine Ratio 9.3 Random Glucose 102 mg/dl Calcium Level 8.7 mg/dl Total Bilirubin 0.2 mg/dl Direct Bilirubin < 0.1 mg/dl Aspartate Amino Transf (AST/SGOT) 16 U/L Alanine Aminotransferase (ALT/SGPT) 13 U/L Alkaline Phosphatase 65 U/L Total Creatine Kinase 60 U/L Creatine Kinase MB 1.8 ng/ml Creatine Kinase MB Ratio 3.0 Troponin I 0.021 ng/ml Pro-B-Type Natriuretic Peptide 1186 pg/ml Total Protein 7.3 gm/dl Albumin 2.9 gm/dl Venous Blood pH 7.31 Venous Blood Partial Pressure CO2 90 mmHg Venous Blood Partial Pressure O2 43 mmHg Venous Blood HCO3 44 mmol/L Venous Blood Oxygen Saturation 74.7 % Venous Blood Base Excess 15.4 mmol/L Arterial Blood pH 7.34 Arterial Blood Partial Pressure CO2 83 mmHg Arterial Blood Partial Pressure O2 73 mm/Hg Arterial Blood HCO3 44 mmol/L Arterial Blood Oxygen Saturation 91.1 % Arterial Blood Base Excess 15.8 mEq/L Arterial Blood Gas Delivery 4 L Faustino Test POS Bedside Glucose 131 mg/dl Test 01/04/17 23:00 01/04/17 23:50 01/05/17 04:55 01/05/17 11:25 Creatine Kinase MB Ratio Creatine Kinase MB 1.9 ng/ml 1.5 ng/ml Troponin I 0.021 ng/ml 0.022 ng/ml White Blood Count 7.15 K/uL Red Blood Count 2.72 M/uL Hemoglobin 8.1 g/dL Hematocrit 27.5 % Mean Corpuscular Volume 101.1 fL Mean Corpuscular Hemoglobin 29.8 pg Mean Corpuscular Hemoglobin Concent 29.5 g/dl RDW Standard Deviation 55.6 fL RDW Coefficient of Variation 15.1 % Platelet Count 128 K/uL Mean Platelet Volume 10.1 fL Sodium Level 139 mmol/L Potassium Level 3.2 mmol/L Chloride Level 92 mmol/L Carbon Dioxide Level 45 mmol/L Anion Gap 2.0 mmol/L Blood Urea Nitrogen 14 mg/dl Creatinine 1.40 mg/dl Est Creatinine Clear Calc Drug Dose 31.2 ml/min Estimated GFR () 41.6 Estimated GFR (Non- 35.9 BUN/Creatinine Ratio 10.3 Random Glucose 95 mg/dl Calcium Level 8.6 mg/dl Bedside Glucose 199 mg/dl Test 01/05/17 11:56 Assessment & Plan Acute on chronic hypoxic hypercapnic respiratory failure Mostly related to COPD exacerbation CXR showed minimal R basilar atelectasis. No acute changes. V/Q scan showed no evidence for PE Repeat ABG today pending Continue prednisone and levaquin, duoneb treatment Continue with BiPAP at night and oxygen supplement during day as tolerated On spiriva and Symbicort Pulm on board recommended pulmonary rehab Daliresp was started to decrease the risk of exacerbation Continue PT/OT Clinically improved continue monitor closely Chest pain Describes as a pressure like Need to r/o ACS Risk factors include HTN, DM II, CAD CM negative Currently denies any chest pain Continue asa, coreg, statin Echo done today showed * Normal LV chamber size with mild concentric LVH. * Normal LV systolic function, EF 55-60%. * No segmental left ventricular wall motion abnormalities are noted. * Grade I diastolic dysfunction. * Aortic valve sclerosis mild, without significant aortic valvular stenosis. R leg swelling: Lower extremity doppler u/s showed no evidence of DVT Edema improved Diastolic HF BNP on admission wnl Continue Torsemide 40mg daily Continue monitor Recent echo done today showed * Normal LV systolic function, EF 55-60%. * Grade I diastolic dysfunction. Hypokalemia K 3.2 replaced Monitor BMP COPD On 4L home O2 and bipap at night Uses her bipap 6 night/per week Continue neb treatments, prednisone, BiPap at night Daliresp adding by pulm Advised pt to use the Bipap every night DM II Last hgb a1c 6.4 (10/2016) Hold home meds. SSI while in-patient Controlled CKD III: Cr is 1.6 on admission which is at baseline Creatine today 1.4 Avoid nephrotoxic agents continue monitor BMP Anemia: Hgb 8.1 today, baseline 9.4 Continue monitor CBC continue iron supplement Will transfuse if H/H drops below 8 Hypothyroidism: -Continue home meds DVT Ppx: Heparin subq (will d/c if hgb continues tto drop. CODE STATUS FULL CODE Consultants: Pulmonary Current Inpatient Medications: Current Inpatient Medications Medications (Trade) Dose Ordered Sig/Gilbert Route Start Time Stop Time Status Last Admin Dose Admin Acetaminophen (Tylenol Tab) 650 mg Q4H PRN PO 01/04/17 18:45 02/03/17 18:44 Ondansetron HCl (Zofran Inj) 4 mg Q6H PRN IV 01/04/17 18:45 02/03/17 18:44 Heparin Sodium (Porcine) (Heparin Sq 5000 Unit/0.5ml) 5,000 unit Q12 SQ 01/04/17 21:00 02/03/17 20:59 01/05/17 08:33 5,000 UNIT Prednisone (PredniSONE TAB) 40 mg DAILY PO 01/05/17 09:00 02/04/17 08:59 01/05/17 08:26 40 MG Albuterol/ Ipratropium (Duoneb) 3 ml QIDR INH 01/04/17 20:00 02/03/17 19:59 01/05/17 15:36 3 ML Insulin Aspart (novoLOG ASPART) SLIDING SCALE If C... ACHS SC 01/04/17 21:00 02/03/17 20:59 01/05/17 14:02 3 UNITS Glucose (Glucose 40% Gel) 15-30 GRAMS 15 GRAMS... UD PRN PO 01/04/17 19:45 02/03/17 19:44 Glucose (Glucose Chew Tab) 4-8 Tablets 4 Tabl... UD PRN PO 01/04/17 19:45 02/03/17 19:44 Dextrose (Dextrose 50% 50ML Syringe) 25-50ML OF 50% DW IV FOR... UD PRN IV 01/04/17 19:45 02/03/17 19:44 Glucagon (Glucagon Inj) 1 mg UD PRN SQ 01/04/17 19:45 02/03/17 19:44 Aspirin (Ecotrin Tab) 81 mg DAILY PO 01/05/17 09:00 02/04/17 08:59 01/05/17 08:27 81 MG Carvedilol (Coreg Tab) 6.25 mg BID PO 01/04/17 21:00 02/03/17 20:59 01/05/17 08:29 6.25 MG Cholecalciferol (Vitamin D Tab) 400 inter.unit DAILY PO 01/05/17 09:00 02/04/17 08:59 01/05/17 08:28 400 INTER.UNIT Cyanocobalamin (Vitamin B-12 Tab) 1,000 mcg DAILY PO 01/05/17 09:00 02/04/17 08:59 01/05/17 08:29 1,000 MCG Ferrous Sulfate (Feosol Tab) 325 mg DAILY PO 01/05/17 09:00 02/04/17 08:59 01/05/17 08:28 325 MG Folic Acid (Folvite Tab) 1 mg DAILY PO 01/05/17 09:00 02/04/17 08:59 01/05/17 08:28 1 MG Levothyroxine Sodium (Synthroid Tab) 75 mcg DAILYBB PO 01/05/17 06:00 02/04/17 06:59 01/05/17 05:43 75 MCG Multivitamins/ Minerals (Multivitamin W/ Minerals Tab) 1 tab BID PO 01/04/17 21:00 02/03/17 20:59 01/05/17 08:26 1 TAB Pantoprazole Sodium (Protonix Tab) 40 mg BID PO 01/04/17 21:00 02/03/17 20:59 01/05/17 08:24 40 MG Rosuvastatin Calcium (Crestor Tab) 20 mg DAILY PO 01/05/17 09:00 02/04/17 08:59 01/05/17 08:25 20 MG Sulfasalazine (Azulfidine Delayed Rel Tab) 1,000 mg TID PO 01/04/17 21:00 02/03/17 20:59 01/05/17 13:59 1,000 MG Tiotropium [place] (Spiriva Handihaler Inhaler) 1 puff QAM INH 01/05/17 09:00 02/04/17 08:59 01/05/17 08:23 1 PUFF Torsemide (Demadex Tab) 40 mg DAILY PO 01/05/17 09:00 02/04/17 08:59 01/05/17 08:25 40 MG Citalopram Hydrobromide (celeXA TAB) 10 mg DAILY PO 01/05/17 09:00 02/04/17 08:59 01/05/17 08:24 10 MG Zinc Sulfate (Zinc Sulfate Cap) 220 mg QAM PO 01/05/17 09:00 02/04/17 08:59 01/05/17 08:24 220 MG Roflumilast (Daliresp Tab) 500 mcg DAILY PO 01/05/17 11:00 02/04/17 10:59 01/05/17 11:29 500 MCG Levofloxacin 250 mg/Prmx 50 ml @ 50 mls/hr Q2D@1100 IV 01/07/17 11:00 01/12/17 23:59
[2017-01-05] MEDS ORDERED: LORAZEPAM 0.5 MG TAB PO PRN (21:45)
[2017-01-06] VITALS (9 sets, daily range): BP systolic 121–135; BP diastolic 62–75; PULSE 66–101; TEMP 36.8–37.1; O2SAT 91–96
[2017-01-06] MEDS: LEVOTHYROXINE 75 MCG TAB PO SCH (06:00)
[2017-01-06 06:36] LABS: HEMATOCRIT 30.5 % (37-47); MEAN CELL VOLUME 98.7 fL (80-100); MEAN CORPUSCULAR HEMOGLOBIN 29.4 pg (25-34); MEAN CORPUSCULAR HGB CONC 29.8 g/dl (32-36); MEAN PLATELET VOLUME 9.4 fL (7.4-10.4); PLATELET COUNT 143 K/uL (130-400); RED BLOOD COUNT 3.09 M/uL (4.2-5.4); WHITE BLOOD COUNT 13.58 K/uL (4.8-10.8)
[2017-01-06 07:24] LABS: BUN/CREATININE RATIO 11.3 (10-20); CALCIUM 8.9 mg/dl (8.5-10.1); CREATININE 1.6 mg/dl (0.60-1.20)
[2017-01-06 07:25] LABS: POTASSIUM 4.2 mmol/L (3.5-5.1)
[2017-01-06] MEDS: TIOTROPIUM BROMIDE 5 PUFF/90 MCG INH INH SCH (07:37)
[2017-01-06] MEDS: SULFASALAZINE 500 MG TABEC PO SCH ×3 (07:39→20:53)
[2017-01-06] MEDS: CITALOPRAM 20 MG TAB PO SCH (07:39)
[2017-01-06] MEDS: CARVEDILOL 6.25 MG TAB PO SCH ×2 (07:40→20:53)
[2017-01-06] MEDS: ROFLUMILAST 500 MCG TAB PO SCH (07:40)
[2017-01-06] MEDS: ROSUVASTATIN CALCIUM 20 MG TAB PO SCH (07:40)
[2017-01-06] MEDS: FERROUS SULFATE 325 MG TAB PO SCH (07:41)
[2017-01-06] MEDS: ASPIRIN 81 MG ECTAB PO SCH (07:41)
[2017-01-06] MEDS: TORSEMIDE 20 MG TAB PO SCH (07:41)
[2017-01-06] MEDS: CEROVITE ADV FORMULA TAB PO SCH (07:42)
[2017-01-06] MEDS: PANTOprazole SOD 40 MG TAB PO SCH ×2 (07:42→20:53)
[2017-01-06] MEDS: CYANOCOBALAMIN 500 MCG TAB (VIT B-12) PO SCH (07:42)
[2017-01-06] MEDS: CHOLECALCIFEROL 1000 INTER.UNIT TAB PO SCH (07:43)
[2017-01-06] MEDS: ZINC SULFATE 220 MG CAP PO SCH (07:44)
[2017-01-06] MEDS: INSULIN ASPART 100 UNITS/ML 3 ML PEN SC SCH ×4 (07:48→20:55)
[2017-01-06] MEDS: HEPARIN SOD 5000 UNIT/0.5 ML CARP SQ SCH ×2 (07:48→20:56)
[2017-01-06] MEDS ORDERED: ACETAMINOPHEN 500 MG TAB PO PRN (10:00)
--- NOTE | 2017-01-06 10:06 | Progress Note ---
Medicine Progress Note Date & Time of Visit: Jan 06, 2017 at 09:37. Subjective 76 yo F with end-stage COPD presents with swelling, chest pressure with exertion and deep breaths and persistent SOB for several months. -states she didn't sleep well last night-requesting Tylenol PM for help with sleep tonight -no further chest pressure. -baseline SOB -no initial sputum changes at home prior to coming in and no worsened SOB, but now reports some yellow phlegm this am -no fevers or chills -no other abdominal pain or other symptoms at this time -feels she is at baseline exercise tolerance. Objective Last 8 Hrs Date Time Temp Pulse Resp B/P (MAP) Pulse Ox O2 Delivery O2 Flow Rate FiO2 01/06/17 08:00 Nasal Cannula 4.0 01/06/17 07:50 36.9 100 18 128/67 (87) 91 4.0 01/06/17 04:26 36.8 89 20 129/75 (93) 95 BiPAP 01/06/17 04:00 96 Nasal Cannula 4.0 Physical Exam: GEN: WNWD, in no acute distress, alert and appropriate, no increased work of breathing, 4L NC oxygen in place HEENT: NC/AT, pupils equal and round bilaterally, normal sclerae, MMM CARDIO: reg rate, S1/2 heard without m/g/r, distant heart sounds LUNGS: crackles at bases R>L, very diminished breath sounds throughout, no wheezing heard. ABD: soft, non-tender, non-distended, no rebound or guarding, colostomy bag in place, +BS EXTREMITY: RP and DP palpable 2+ bilat, no LE swelling or edema, extremities are warm and well-perfused NEURO: CN 2-12 grossly intact, sensation intact throughout, no gross focal deficits. MUSC: moves all extremities equally, can sit up in bed with ease SKIN: warm and dry Laboratory Results: 01/06/17 06:22 01/06/17 06:22 Test 01/04/17 17:00 01/04/17 17:30 01/05/17 04:55 01/05/17 11:56 Immature Granulocyte % (Auto) 0.5 % White Blood Count 8.49 K/uL (4.8-10.8) Red Blood Count 2.94 M/uL (4.2-5.4) Hemoglobin 8.8 g/dL (12.0-16.0) Hematocrit 29.8 % (37-47) Mean Corpuscular Volume 101.4 fL (80-100) Mean Corpuscular Hemoglobin 29.9 pg (25-34) Mean Corpuscular Hemoglobin Concent 29.5 g/dl (32-36) Platelet Count 150 K/uL (130-400) Mean Platelet Volume 10.0 fL (7.4-10.4) Neutrophils (%) (Auto) 64.1 % Lymphocytes (%) (Auto) 19.9 % Monocytes (%) (Auto) 10.2 % Eosinophils (%) (Auto) 4.8 % Basophils (%) (Auto) 0.5 % Neutrophils # (Auto) 5.44 K/uL (1.4-6.5) Lymphocytes # (Auto) 1.69 K/uL (1.2-3.4) Monocytes # (Auto) 0.87 K/uL (0.11-0.59) Eosinophils # (Auto) 0.41 K/uL (0-0.5) Basophils # (Auto) 0.04 K/uL (0-0.2) Immature Granulocyte # (Auto) 0.04 K/uL (0.00-0.02) Hypochromasia PRESENT Stomatocytes 1+ Prothrombin Time 11.4 SECONDS (9.0-12.0) Prothromb Time International Ratio 1.1 (0.9-1.1) Activated Partial Thromboplast Time 25.1 SECONDS (21.0-31.0) Partial Thromboplastin Ratio 1.0 Total Bilirubin 0.2 mg/dl (0.2-1) Direct Bilirubin < 0.1 mg/dl (0-0.2) Aspartate Amino Transf (AST/SGOT) 16 U/L (15-37) Alanine Aminotransferase (ALT/SGPT) 13 U/L (12-78) Alkaline Phosphatase 65 U/L (45-117) Total Creatine Kinase 60 U/L (26-192) Pro-B-Type Natriuretic Peptide 1186 pg/ml (0-1800) Total Protein 7.3 gm/dl (6.4-8.2) Albumin 2.9 gm/dl (3.4-5.0) Venous Blood pH 7.31 (7.36-7.41) Venous Blood Partial Pressure CO2 90 mmHg (38.0-50.0) Venous Blood Partial Pressure O2 43 mmHg Venous Blood HCO3 44 mmol/L Venous Blood Oxygen Saturation 74.7 % Venous Blood Base Excess 15.4 mmol/L Creatine Kinase MB 1.5 ng/ml (0.5-3.6) Creatine Kinase MB Ratio (0-3.0) Troponin I 0.022 ng/ml (0-0.045) Test 01/06/17 06:22 01/06/17 06:55 Red Blood Count 3.09 M/uL (4.2-5.4) Mean Corpuscular Volume 98.7 fL (80-100) Mean Corpuscular Hemoglobin 29.4 pg (25-34) Mean Corpuscular Hemoglobin Concent 29.8 g/dl (32-36) RDW Standard Deviation 54.6 fL (36.4-46.3) RDW Coefficient of Variation 15.2 % (11.5-14.5) Mean Platelet Volume 9.4 fL (7.4-10.4) Anion Gap 2.0 mmol/L (3-11) Est Creatinine Clear Calc Drug Dose 27.0 ml/min Estimated GFR () 35.4 Estimated GFR (Non- 30.5 BUN/Creatinine Ratio 11.3 (10-20) Calcium Level 8.9 mg/dl (8.5-10.1) Bedside Glucose 114 mg/dl (70-90) Last 24 Hours Test 01/05/17 11:25 01/05/17 11:56 01/05/17 16:28 01/05/17 20:21 Bedside Glucose 199 mg/dl 280 mg/dl 175 mg/dl Test 01/06/17 06:22 01/06/17 06:55 White Blood Count 13.58 K/uL Red Blood Count 3.09 M/uL Hemoglobin 9.1 g/dL Hematocrit 30.5 % Mean Corpuscular Volume 98.7 fL Mean Corpuscular Hemoglobin 29.4 pg Mean Corpuscular Hemoglobin Concent 29.8 g/dl RDW Standard Deviation 54.6 fL RDW Coefficient of Variation 15.2 % Platelet Count 143 K/uL Mean Platelet Volume 9.4 fL Sodium Level 137 mmol/L Potassium Level 4.2 mmol/L Chloride Level 91 mmol/L Carbon Dioxide Level 44 mmol/L Anion Gap 2.0 mmol/L Blood Urea Nitrogen 18 mg/dl Creatinine 1.60 mg/dl Est Creatinine Clear Calc Drug Dose 27.0 ml/min Estimated GFR () 35.4 Estimated GFR (Non- 30.5 BUN/Creatinine Ratio 11.3 Random Glucose 115 mg/dl Calcium Level 8.9 mg/dl Bedside Glucose 114 mg/dl Assessment & Plan 76 yo F with end-stage COPD presents with swelling, chest pressure with exertion and deep breaths and persistent SOB for several months. 1. Acute on chronic hypoxic hypercapnic respiratory failure: etiology includes but not limited to acute diastolic CHF exacerbation vs COPD exacerbation vs atelectasis. VQ scan showed no evidence of PE. Evidence of chronic CO2 retention, appears at baseline, continues on nightly BIPAP. Cont prednisone, levqquin, Duonebs, Spiriva, Symbicort. Pulm recommending pulm rehab --daughters feel this would be great for her becuase she doesn't move much at home. Pt feels her leg swelling and initial chest pressure with deep breaths have resolved per patient. Daliresp started this admission to decrease risk of future COPD exacerbation. Cont chest PT and flutter valve. Cont PT/OT. Not moving much air on exam but no wheezing; this may be her baseline. Cont to monitor through the weekend. Daily weights ordered. Cont torsemide. Pt is at baseline oxygen function. She also reports feeling at her baseline exercise tolerance. Appreciate pulmonary recs. 2. Chronic CO2 retention 2/2 severe COPD-cont nightly BIPAP-daughters are bringing mask from home to help her comfort. 2. Chest pain: ACS ruled out initially with negative serial cardiac enzymes and echo revealing no wall motion abnormality. EKG revealed NSR 87. She states no recurrent chest pain at home prior to arrival. Appears that cardiac disease is stable. Cont medical management at this time (ASA, Coreg, statin) 3. R leg swelling-resolved. No pain in leg, RLE US revealed no evidence of DVT. 4. DMII-controlled with A1C 6.4 . On Januvia as outpatient which was held on admission. Currently at goal. Cont ISS with carb coverage. 5. CKD III: at baseline, avoid nephrotoxic agents if able. Renal dosing of meds. 6. Anemia-Improved, currently on iron supplementation. Likely 2/2 ACD and iron deficiency. No transfusion needed at this time. Monitor PRN. 7. Hypothyroidism-stable, cont home Synthroid at 75mcg PO daily. 8. Insomnia-pt reports taking Tylenol PM at home every night. Was given Ambien last night but this didn't work for her. Requesting Tylenol PM for tonight. 9. Leukocytosis-liekly 2/2 steroids. DVT Ppx: Heparin subq Full Dispo: consider DC on Mon once patient has plateaued. Symone Hudson DO [facility] Hospitalist NOTE: conversation with daughter -Vishal-gave an update and explained plan. Daughter expressed thanks and had no further concerns. Nots that her mother doesn't do much at home. Consultants: Pulmonary-[place] Current Inpatient Medications: Current Inpatient Medications Medications (Trade) Dose Ordered Sig/Gilbert Route Start Time Stop Time Status Last Admin Dose Admin Acetaminophen (Tylenol Tab) 650 mg Q4H PRN PO 01/04/17 18:45 02/03/17 18:44 Ondansetron HCl (Zofran Inj) 4 mg Q6H PRN IV 01/04/17 18:45 02/03/17 18:44 Heparin Sodium (Porcine) (Heparin Sq 5000 Unit/0.5ml) 5,000 unit Q12 SQ 01/04/17 21:00 02/03/17 20:59 01/06/17 07:48 5,000 UNIT Prednisone (PredniSONE TAB) 40 mg DAILY PO 01/05/17 09:00 02/04/17 08:59 01/06/17 07:42 40 MG Albuterol/ Ipratropium (Duoneb) 3 ml QIDR INH 01/04/17 20:00 02/03/17 19:59 01/05/17 19:45 3 ML Insulin Aspart (novoLOG ASPART) SLIDING SCALE If C... ACHS SC 01/04/17 21:00 02/03/17 20:59 01/06/17 07:48 1 UNITS Glucose (Glucose 40% Gel) 15-30 GRAMS 15 GRAMS... UD PRN PO 01/04/17 19:45 02/03/17 19:44 Glucose (Glucose Chew Tab) 4-8 Tablets 4 Tabl... UD PRN PO 01/04/17 19:45 02/03/17 19:44 Dextrose (Dextrose 50% 50ML Syringe) 25-50ML OF 50% DW IV FOR... UD PRN IV 01/04/17 19:45 02/03/17 19:44 Glucagon (Glucagon Inj) 1 mg UD PRN SQ 01/04/17 19:45 02/03/17 19:44 Aspirin (Ecotrin Tab) 81 mg DAILY PO 01/05/17 09:00 02/04/17 08:59 01/06/17 07:41 81 MG Carvedilol (Coreg Tab) 6.25 mg BID PO 01/04/17 21:00 02/03/17 20:59 01/06/17 07:40 6.25 MG Cholecalciferol (Vitamin D Tab) 400 inter.unit DAILY PO 01/05/17 09:00 02/04/17 08:59 01/06/17 07:43 400 INTER.UNIT Cyanocobalamin (Vitamin B-12 Tab) 1,000 mcg DAILY PO 01/05/17 09:00 02/04/17 08:59 01/06/17 07:42 1,000 MCG Ferrous Sulfate (Feosol Tab) 325 mg DAILY PO 01/05/17 09:00 02/04/17 08:59 01/06/17 07:41 325 MG Folic Acid (Folvite Tab) 1 mg DAILY PO 01/05/17 09:00 02/04/17 08:59 01/06/17 07:41 1 MG Levothyroxine Sodium (Synthroid Tab) 75 mcg DAILYBB PO 01/05/17 06:00 02/04/17 06:59 01/06/17 06:00 75 MCG Multivitamins/ Minerals (Multivitamin W/ Minerals Tab) 1 tab BID PO 01/04/17 21:00 02/03/17 20:59 01/06/17 07:42 1 TAB Pantoprazole Sodium (Protonix Tab) 40 mg BID PO 01/04/17 21:00 02/03/17 20:59 01/06/17 07:42 40 MG Rosuvastatin Calcium (Crestor Tab) 20 mg DAILY PO 01/05/17 09:00 02/04/17 08:59 01/06/17 07:40 20 MG Sulfasalazine (Azulfidine Delayed Rel Tab) 1,000 mg TID PO 01/04/17 21:00 02/03/17 20:59 01/06/17 07:39 1,000 MG Tiotropium [place] (Spiriva Handihaler Inhaler) 1 puff QAM INH 01/05/17 09:00 02/04/17 08:59 01/06/17 07:37 1 PUFF Torsemide (Demadex Tab) 40 mg DAILY PO 01/05/17 09:00 02/04/17 08:59 01/06/17 07:41 40 MG Citalopram Hydrobromide (celeXA TAB) 10 mg DAILY PO 01/05/17 09:00 02/04/17 08:59 01/06/17 07:39 10 MG Zinc Sulfate (Zinc Sulfate Cap) 220 mg QAM PO 01/05/17 09:00 02/04/17 08:59 01/06/17 07:44 220 MG Roflumilast (Daliresp Tab) 500 mcg DAILY PO 01/05/17 11:00 02/04/17 10:59 01/06/17 07:40 500 MCG Levofloxacin 250 mg/Prmx 50 ml @ 50 mls/hr Q2D@1100 IV 01/07/17 11:00 01/12/17 23:59 Lorazepam (Ativan Tab) 0.25 mg HS PRN PO 01/05/17 21:45 02/04/17 21:44 01/05/17 22:57 0.25 MG
[2017-01-06] MEDS: ALBUT/IPRATROP 3MG/0.5MG NEB 3 ML VIAL INH SCH ×3 (11:13→21:06)
[2017-01-06] MEDS ORDERED: NURSING VERBAL MED ORDER ONE (14:45)
--- NOTE | 2017-01-06 16:44 | Pulmonology Progress Note ---
Pulmonary Progress Note Date of Service Jan 06, 2017. Attending Dr. Mosqueda Subjective Patient seen and examined. She states she feels almost back at her baseline. Did not get a good nights rest.Feels her breathing has improved significantly. She tolerated BiPAP well overnight. She denies any fevers, chills, chest pain , or cough. She has had increased output from her stoma since starting the roflulimast. Objective Vital signs reviewed. Pulse oximetry between 91-96% on 4 L nasal cannula. General Appearance: WELL-APPEARING, WD/WN, NO APPARENT DISTRESS Head: NORMOCEPHALIC, ATRAUMATIC Eyes: PERRLA, NO DISCHARGE, EOMI, SCLERAE NORMAL, CONJUNCTIVAE NORMAL ENT: NORMAL NASAL EXAM, NORMAL MOUTH EXAM Neck: NORMAL RANGE OF MOTION, NO TENDERNESS, TRACHEA MIDLINE, NO STRIDOR, SUPPLE (Decrease breath sounds bilaterally, no crackles or wheezes present) Respiratory: NO RESPIRATORY DISTRESS (Decreased breath sounds bilaterally, no crackles or wheezes heard. No use of accessory muscles of respiration. Speaking in full sentences.) Cardiovasular: REGULAR RATE/RHYTHM, NORMAL S1S2, NO MURMUR, NORMAL PERIPHERAL PULSES Abdomen: NON TENDER, NORMAL BOWEL SOUNDS (Colostomy bag present) Genitourinary - Female: EXTERNAL GENITALIA NORMAL Back: NORMAL INSPECTION, NO MIDLINE TENDERNESS Edema: Bilateral LE (1+) Neuro: ALERT, ORIENTED x 3, NORMAL SPEECH Psychiatric: NORMAL AFFECT, NO SUICIDAL IDEATION, CONTRACTS FOR SAFETY For respiratory standpoint she is on Levaquin 250 daily, Roflulimast 500 mcg daily by mouth, prednisone 40 mg daily, Spiriva one puff every morning, albuterol/ipratropium nebulizer every 6 hours. Sputum cultures are pending. Leukocytosis most likely secondary to steroids. V/Q scan IMPRESSION: This is nondiagnostic for pulmonary embolus by modified PIOPED II criteria given the dominant finding of solitary matched ventilation, perfusion, and chest x-ray defect in the posterior lateral basal segment other right lower lobe. This appearance could represent pleural fluid or paraseptal emphysema. Given the findings on ventilation, emphysema most likely accounts for this appearance. Assessment & Plan Acute on chronic hypoxic and hypercapnic respiratory failure secondary to end- stage COPD Diastolic dysfunction I will signoff case today as patient appears to be clinically improving and back at baseline. Reconsult if youve any further questions or concerns. Continue supplemental oxygen therapy however be careful not to hyperoxygenate patient as this can worsen carbon dioxide levels. Continue with BiPAP at night and for increased work of breathing. Continue with Spiriva, Symbicort as well as Atrovent/ albuterol nebulizer treatments Follow-up sputum culture. Continue with corticosteroids for 5-7 days Treat with Levaquin for 5-7 days. Continue with daliresp to decrease risk of exacerbation Continue with flutter valve and aggressive chest PT. Patient will likely benefit from a pulmonary rehab program as an outpatient. Nutritional status should be optimized. She should follow up with Dr. Pabon upon discharge. Data Medications: Current Inpatient Medications Medications (Trade) Dose Ordered Sig/Gilbert Route Start Time Stop Time Status Last Admin Dose Admin Acetaminophen (Tylenol Tab) 650 mg Q4H PRN PO 01/04/17 18:45 02/03/17 18:44 Ondansetron HCl (Zofran Inj) 4 mg Q6H PRN IV 01/04/17 18:45 02/03/17 18:44 Heparin Sodium (Porcine) (Heparin Sq 5000 Unit/0.5ml) 5,000 unit Q12 SQ 01/04/17 21:00 02/03/17 20:59 01/06/17 07:48 5,000 UNIT Prednisone (PredniSONE TAB) 40 mg DAILY PO 01/05/17 09:00 02/04/17 08:59 01/06/17 07:42 40 MG Albuterol/ Ipratropium (Duoneb) 3 ml QIDR INH 01/04/17 20:00 02/03/17 19:59 01/06/17 15:19 3 ML Insulin Aspart (novoLOG ASPART) SLIDING SCALE If C... ACHS SC 01/04/17 21:00 02/03/17 20:59 01/06/17 12:22 2 UNITS Glucose (Glucose 40% Gel) 15-30 GRAMS 15 GRAMS... UD PRN PO 01/04/17 19:45 02/03/17 19:44 Glucose (Glucose Chew Tab) 4-8 Tablets 4 Tabl... UD PRN PO 01/04/17 19:45 02/03/17 19:44 Dextrose (Dextrose 50% 50ML Syringe) 25-50ML OF 50% DW IV FOR... UD PRN IV 01/04/17 19:45 02/03/17 19:44 Glucagon (Glucagon Inj) 1 mg UD PRN SQ 01/04/17 19:45 02/03/17 19:44 Aspirin (Ecotrin Tab) 81 mg DAILY PO 01/05/17 09:00 02/04/17 08:59 01/06/17 07:41 81 MG Carvedilol (Coreg Tab) 6.25 mg BID PO 01/04/17 21:00 02/03/17 20:59 01/06/17 07:40 6.25 MG Cholecalciferol (Vitamin D Tab) 400 inter.unit DAILY PO 01/05/17 09:00 02/04/17 08:59 01/06/17 07:43 400 INTER.UNIT Cyanocobalamin (Vitamin B-12 Tab) 1,000 mcg DAILY PO 01/05/17 09:00 02/04/17 08:59 01/06/17 07:42 1,000 MCG Ferrous Sulfate (Feosol Tab) 325 mg DAILY PO 01/05/17 09:00 02/04/17 08:59 01/06/17 07:41 325 MG Folic Acid (Folvite Tab) 1 mg DAILY PO 01/05/17 09:00 02/04/17 08:59 01/06/17 07:41 1 MG Levothyroxine Sodium (Synthroid Tab) 75 mcg DAILYBB PO 01/05/17 06:00 02/04/17 06:59 01/06/17 06:00 75 MCG Pantoprazole Sodium (Protonix Tab) 40 mg BID PO 01/04/17 21:00 02/03/17 20:59 01/06/17 07:42 40 MG Rosuvastatin Calcium (Crestor Tab) 20 mg DAILY PO 01/05/17 09:00 02/04/17 08:59 01/06/17 07:40 20 MG Sulfasalazine (Azulfidine Delayed Rel Tab) 1,000 mg TID PO 01/04/17 21:00 02/03/17 20:59 01/06/17 13:47 1,000 MG Tiotropium [place] (Spiriva Handihaler Inhaler) 1 puff QAM INH 01/05/17 09:00 02/04/17 08:59 01/06/17 07:37 1 PUFF Torsemide (Demadex Tab) 40 mg DAILY PO 01/05/17 09:00 02/04/17 08:59 01/06/17 07:41 40 MG Citalopram Hydrobromide (celeXA TAB) 10 mg DAILY PO 01/05/17 09:00 02/04/17 08:59 01/06/17 07:39 10 MG Zinc Sulfate (Zinc Sulfate Cap) 220 mg QAM PO 01/05/17 09:00 02/04/17 08:59 01/06/17 07:44 220 MG Roflumilast (Daliresp Tab) 500 mcg DAILY PO 01/05/17 11:00 02/04/17 10:59 01/06/17 07:40 500 MCG Levofloxacin 250 mg/Prmx 50 ml @ 50 mls/hr Q2D@1100 IV 01/07/17 11:00 01/12/17 23:59 Lorazepam (Ativan Tab) 0.25 mg HS PRN PO 01/05/17 21:45 02/04/17 21:44 01/05/17 22:57 0.25 MG Acetaminophen (Tylenol Tab) 500 mg HS PRN PO 01/06/17 10:00 02/05/17 09:59 Diphenhydramine HCl (Benadryl Cap) 25 mg HS PRN PO 01/06/17 10:00 02/05/17 09:59 Amino Acids/ Minerals/Vitamins (Preservision Areds 2) 1 cap BID PO 01/06/17 21:00 02/05/17 20:59 I & O: 24-Hour Column 01/07/17 08:00 Intake Total 400 ml Balance 400 ml Vital Signs: Date Time Temp Pulse Resp B/P (MAP) Pulse Ox O2 Delivery O2 Flow Rate FiO2 01/06/17 16:01 36.8 79 18 133/62 (85) 96 01/06/17 15:33 98 18 96 Nasal Cannula 4.0 01/06/17 12:00 Nasal Cannula 4.0 01/06/17 11:13 98 18 95 Nasal Cannula 4.0 01/06/17 11:08 37.1 101 20 135/72 (93) 94 4.0 01/06/17 08:00 Nasal Cannula 4.0 01/06/17 07:50 36.9 100 18 128/67 (87) 91 4.0 01/06/17 04:26 36.8 89 20 129/75 (93) 95 BiPAP 01/06/17 04:00 96 Nasal Cannula 4.0 01/05/17 23:59 96 Nasal Cannula 4.0 01/05/17 23:41 80 94 4.0 01/05/17 23:10 36.6 94 22 120/67 (84) 96 BiPAP 01/05/17 20:02 91 Nasal Cannula 3.0 01/05/17 19:45 88 18 97 Nasal Cannula 4.0 01/05/17 19:22 36.9 91 22 116/64 (81) 91 Nasal Cannula 3.0 Laboratory Results: Last 24 Hours Test 01/05/17 20:21 01/06/17 06:22 01/06/17 06:55 01/06/17 11:06 Bedside Glucose 175 mg/dl 114 mg/dl 203 mg/dl White Blood Count 13.58 K/uL Red Blood Count 3.09 M/uL Hemoglobin 9.1 g/dL Hematocrit 30.5 % Mean Corpuscular Volume 98.7 fL Mean Corpuscular Hemoglobin 29.4 pg Mean Corpuscular Hemoglobin Concent 29.8 g/dl RDW Standard Deviation 54.6 fL RDW Coefficient of Variation 15.2 % Platelet Count 143 K/uL Mean Platelet Volume 9.4 fL Sodium Level 137 mmol/L Potassium Level 4.2 mmol/L Chloride Level 91 mmol/L Carbon Dioxide Level 44 mmol/L Anion Gap 2.0 mmol/L Blood Urea Nitrogen 18 mg/dl Creatinine 1.60 mg/dl Est Creatinine Clear Calc Drug Dose 27.0 ml/min Estimated GFR () 35.4 Estimated GFR (Non- 30.5 BUN/Creatinine Ratio 11.3 Random Glucose 115 mg/dl Calcium Level 8.9 mg/dl
[2017-01-06] MEDS: BUDESONIDE/FORMOTEROL FUMARATE 160/4.5 60 PUFFS/INHALER INH SCH (20:47)
[2017-01-06] MEDS: MULTIPLE VITAMINS PO SCH (20:52)
[2017-01-06] MEDS: MINERALS PO SCH (20:52)
[2017-01-07] VITALS (10 sets, daily range): BP systolic 105–133; BP diastolic 60–74; PULSE 86–100; TEMP 36.7–37.1; O2SAT 90–97
[2017-01-07] MEDS: LEVOTHYROXINE 75 MCG TAB PO SCH (05:37)
[2017-01-07 07:12] LABS: HEMATOCRIT 28.5 % (37-47); MEAN CELL VOLUME 97.3 fL (80-100); MEAN CORPUSCULAR HEMOGLOBIN 29.4 pg (25-34); MEAN CORPUSCULAR HGB CONC 30.2 g/dl (32-36); MEAN PLATELET VOLUME 9.8 fL (7.4-10.4); PLATELET COUNT 149 K/uL (130-400); RED BLOOD COUNT 2.93 M/uL (4.2-5.4); WHITE BLOOD COUNT 11.54 K/uL (4.8-10.8)
[2017-01-07] MEDS: ALBUT/IPRATROP 3MG/0.5MG NEB 3 ML VIAL INH SCH ×3 (07:19→15:19)
[2017-01-07] MEDS: CARVEDILOL 6.25 MG TAB PO SCH (07:35)
[2017-01-07] MEDS: CITALOPRAM 20 MG TAB PO SCH (07:38)
[2017-01-07] MEDS: CYANOCOBALAMIN 500 MCG TAB (VIT B-12) PO SCH (07:38)
[2017-01-07] MEDS: FERROUS SULFATE 325 MG TAB PO SCH (07:38)
[2017-01-07] MEDS: ZINC SULFATE 220 MG CAP PO SCH (07:39)
[2017-01-07] MEDS: ASPIRIN 81 MG ECTAB PO SCH (07:39)
[2017-01-07] MEDS: PANTOprazole SOD 40 MG TAB PO SCH (07:39)
[2017-01-07] MEDS: TORSEMIDE 20 MG TAB PO SCH (07:40)
[2017-01-07] MEDS: CHOLECALCIFEROL 1000 INTER.UNIT TAB PO SCH (07:42)
[2017-01-07] MEDS: ROFLUMILAST 500 MCG TAB PO SCH (07:42)
[2017-01-07] MEDS: ROSUVASTATIN CALCIUM 20 MG TAB PO SCH (07:42)
[2017-01-07] MEDS: SULFASALAZINE 500 MG TABEC PO SCH ×2 (07:43→12:29)
[2017-01-07] MEDS: BUDESONIDE/FORMOTEROL FUMARATE 160/4.5 60 PUFFS/INHALER INH SCH (07:43)
[2017-01-07] MEDS: TIOTROPIUM BROMIDE 5 PUFF/90 MCG INH INH SCH (07:44)
[2017-01-07] MEDS: MINERALS PO SCH (07:45)
[2017-01-07] MEDS: MULTIPLE VITAMINS PO SCH (07:45)
[2017-01-07 07:47] LABS: BUN/CREATININE RATIO 11.8 (10-20); CALCIUM 8.4 mg/dl (8.5-10.1); CREATININE 1.6 mg/dl (0.60-1.20); MAGNESIUM 2.2 mg/dl (1.8-2.4)
[2017-01-07] MEDS: HEPARIN SOD 5000 UNIT/0.5 ML CARP SQ SCH (07:48)
[2017-01-07] MEDS: INSULIN ASPART 100 UNITS/ML 3 ML PEN SC SCH ×2 (07:52→12:28)
[2017-01-07 08:03] LABS: POTASSIUM 3.4 mmol/L (3.5-5.1)
[2017-01-07] MEDS ORDERED: LEVOFLOXACIN / D5W 250 MG in PREMIXED IN D5W 50 ML IV SCH (11:00)
[2017-01-07] MEDS ORDERED: DLR500 PO (13:48)
[2017-01-07] MEDS ORDERED: PRD20 PO (13:48)
[2017-01-07] MEDS ORDERED: SYMIN INH (13:48)
[2017-01-07] MEDS ORDERED: DMD20 PO (13:48)
[2017-01-07] MEDS ORDERED: LEVO-17 PO ×2 (13:50→14:05)
[2017-01-07] MEDS ORDERED: MCRK20 PO (14:03)
--- NOTE | 2017-01-07 14:07 | Discharge Instructions ---
Discharge Instructions Date of Service Jan 07, 2017. Admission Reason for Admission: Copd Exacerbation Discharge Discharge Diagnosis / Problem: Acute diastolic CHF exacerbation, Acute COPD exacerbation Discharge Goals Goal(s): Prevent Disease Progression Activity Recommendations Activity Limitations: per Instructions/Follow-up section . Instructions / Follow-Up Instructions / Follow-Up Call your Primary Care doctor if any of the following symptoms or problems start or get worse: * Shortness of breath or difficulty breathing * Wake up at night short of breath * Chest pain * Cough * Swelling of your hands, feet, or legs * More fatigued or tired with your normal activity * Palpitations - sudden fast heart beats WEIGHT * Weigh yourself every morning after using the bathroom. * Use the same scale. * Wear the same amount of clothing. * Write your weight down on a chart. * Call your Primary Care doctor if you gain more than 2-3 pounds in 1-2 days. MEDICATIONS * Use this discharge instruction sheet for medication instructions. * Take your medications at the time your doctor ordered. * Do not skip a dose of your medicines. * If you miss a dose of medicine, take it as soon as possible, but DO NOT DOUBLE A DOSE. * Read your medicine information when you get home. * Know all of the side effects of your medicine. If in doubt, ask your pharmacist * Call your Primary Care doctor's office if you have any side effects. * Be sure all of your doctors know what medicine and herbs you take (including cold, flu, and herbal medicine). Take the following with you to your follow-up doctor appointments: * Weight Chart * Medication List * List of questions Do not drink excessive alcohol, beer or wine. ADDITIONAL PROVIDER INSTRUCTIONS: 1. Please take all medications as instructed. Please note multiple changes to prior meds. 2. You have a follow-up appointment with Dr. Samano on , 01/12 @ 2: 45pm at the [facility]. Please bring all paperwork from this hospitalization and arrive 15 minutes early. 3. You will need to follow-up with Dr. Pabon ([facility]) regarding a follow-up appointment post-hospital discharge for lung issues, and also to set up pulmonary rehab. His office number is [phone]. It was a pleasure taking care of you! Call if you have any questions or problems. You can reach a [facility] hospitalist on duty at [facility] 24 hours a day by calling [phone]. Take care of yourself. DO Marlon García Hospitalist Current Hospital Diet Patient's current hospital diet: AHA Diet (Heart Healthy), Diabetes Type 2 Diet Discharge Diet Recommended Diet: AHA Diet (Heart Healthy), Diabetes Type 2 Diet Procedures Procedures Performed: TTE: Normal LV chamber size with mild concentric LVH. Normal LV systolic function, EF 55-60%. No segmental left ventricular wall motion abnormalities are noted. Grade I diastolic dysfunction. Aortic valve sclerosis mild, without significant aortic valvular stenosis. Pending Studies Studies pending at discharge: yes List of pending studies: finalized sputum culture pending at discharge. Medical Emergencies . Who to Call and When: Call 911 or go to the Emergency Room if: * If at any time you feel your situation is an emergency * You have tightness or pain in your chest that does not go away with rest or Nitroglycerin * You are very short of breath even with rest . Non-Emergent Contact Non-Emergency issues call your: Primary Care Provider . . "Provider Documentation" section prepared by Symone Hudson. . VTE Core Measure Inpt VTE Proph given/why not?: Unfractionated heparin SQ
--- NOTE | 2017-01-07 14:15 | Discharge Summary ---
Discharge Summary Date of Service Jan 07, 2017. Discharge Summary Admission Date: Jan 04, 2017 at 18:50 Discharge Date: Jan 07, 2017 Discharge Disposition: Home Principal Diagnosis: 1. Acute on chronic hypoxic hypercapnic respiratory failure 2. acute diastolic CHF exacerbation 3. Chronic CO2 retention 2/2 severe COPD 4. Atypical chest pain 5. R leg swelling 6. DMII 7. CKD III: at baseline, avoid nephrotoxic agents if able. Renal dosing of meds. 8. Anemia 9. Hypothyroidism 10. Leukocytosis 11. Pseudomonas in sputum Procedures: TTE: * Normal LV chamber size with mild concentric LVH. * Normal LV systolic function, EF 55-60%. * No segmental left ventricular wall motion abnormalities are noted. * Grade I diastolic dysfunction. * Aortic valve sclerosis mild, without significant aortic valvular stenosis. Vaccinations: None. Consultations: Pulmonary-[facility] Pending Studies/Follow-Up: see instructions below Medication Reconciliation New Medications: Levofloxacin (Levaquin) 250 Mg Tab 250 MG PO UD for 2 Days, #2 TAB Take one tab on 01/09 and the other on 01/11 Potassium Chloride (Klor-Con M20) 20 Meq Tabcr 20 MEQ PO DAILY for 30 Days, #30 TAB 0 Refills Use while taking Torsemide or Furosemide. Budesonide/Formoterol Fumarate (Symbicort 160-4.5 Mcg/Act) 60 Puffs/Inhaler Aero 2 PUFFS INH BID for 30 Days, #1 EA 1 Refill Prednisone (Prednisone) 20 Mg Tab 40 MG PO DAILY for 2 Days, #4 TAB Roflumilast (Daliresp) 500 Mcg Tab 500 MCG PO DAILY for 30 Days, #30 TAB 1 Refill Changed Medications: Torsemide (Torsemide) 20 Mg Tab 1 TAB PO DAILY for 30 Days, #30 TAB 1 Refill (Changed from: 2 TAB; Refills: ) Continued Medications: Aspirin (Aspirin Ec) 81 Mg Tab 81 MG PO DAILY Carvedilol (Carvedilol) 6.25 Mg Tab 6.25 MG PO BID Cholecalciferol (Vitamin D 1000 Unit) 1,000 Unit Cap 400 INTER.UNIT PO DAILY, CAP Citalopram Hydrobromide (Citalopram Hydrobromide) 10 Mg Tab 10 MG PO DAILY Cyanocobalamin (Vitamin B-12) 1,000 Mcg Tab 1000 MCG PO DAILY, TAB Denosumab (Prolia) 60 Mg/1 Ml Inj 60 MG SQ Q 6 Months Ferrous Sulfate (Ferrous Sulfate) 325 Mg Tab 325 MG PO DAILY Folic Acid (Folic Acid) 1 Mg Tab 1 MG PO DAILY Home O2 Therapy (Oxygen) Gas 4 LITER NA CONTINOUS Ipratropium-Albuterol (Duoneb) 3 Ml Nebu 1 TREATMENT INH Q4H, INHA Levothyroxine Sodium (Levothyroxine Sodium) 75 Mcg Tab 75 MCG PO DAILY Mupirocin (Bactroban 2% Oint) Unknown Strength Oint Unknown Dose TOP TID, #22 Ocuvite Preservision (Ocuvite Preservision) 1 Tab Tab 1 TAB PO BID, TAB Pantoprazole (Protonix) 40 Mg Tab 40 MG PO BID, #30 TAB Rosuvastatin Calcium (Crestor) 20 Mg Tab 20 MG PO DAILY Sitagliptin (Januvia) 25 Mg Tab 25 MG PO DAILY Sulfasalazine (Sulfasalazine) 500 Mg Tabec 2 TAB PO TID Tiotropium [place] (Spiriva Handihaler) 30 Puff/540 Mcg Aerp 1 PUFF INH QAM Zinc (Zinc) 50 Mg Tab 50 MG PO DAILY Discontinued Medications: Furosemide (Furosemide) 20 Mg Tab 20-40 MG PO DAILY Admission Information HPI (per Admitting provider): This is a 76yo F with a PMH of severe COPD, Diastolic CHF, HTN, DM II, CKD IV and CAD who presents with SOB over the past 2 months. States that she has become progressively more short of breath at rest, even on her home O2 of 4L. Her baseline for breathing is to experience SOB with positional change. Over the past month, she has started to have a pleuritic "pressure" with inspiration , with chest pain L>R. Additionally, she noticed a painless swelling of her R leg 3 weeks ago. Denies any calf pain or palpable cords. Was taken to the PCP by her daughter yesterday, where she was noted to have an oxygen saturation of 70%. Patient was started on a new diuretic and instructed to go to ED if SOB worsened. Today, the patient's daughter took her vitals at home and she was found to be hypoxic at 87% on 4L NC and to have a BP of 96/36. Was then brought into the ED by EMS on CPAP. Patient is now satting in the high 90s on a Oxymask. Endorses dyspnea, SOB and pleuritic pain with inspiration. Denies fever, chills, lightheadedness, confusion, cough, wheezing, palpitations, calf pain. Physical Exam (per Admitting): General Appearance: no apparent distress Head: normocephalic Eyes: normal inspection ENT: normal ENT inspection, hearing grossly normal Neck: supple Respiratory/Chest: chest non-tender, no respiratory distress, no accessory muscle use, + crackles (at bilateral bases) Cardiovascular: regular rate, rhythm, no murmur Abdomen/GI: normal bowel sounds (Colostomy bag visualized), non tender, soft , no organomegaly Back: normal inspection Extremities/Musculoskelatal: no calf tenderness, normal capillary refill, + pertinent finding (Edema of R>L. Not warm to touch.) Neurologic/Psych: no motor/sensory deficits, alert, normal mood/affect, normal reflexes, oriented x 3 Skin: normal color, warm/dry Hospital Course 76 yo F with end-stage COPD presents with swelling, chest pressure with exertion and deep breaths and persistent SOB for several months. 1. Acute on chronic hypoxic hypercapnic respiratory failure: etiology includes but not limited to acute diastolic CHF exacerbation vs COPD exacerbation vs atelectasis. VQ scan showed no evidence of PE. Evidence of chronic CO2 retention, appears at baseline, continues on nightly BIPAP. Cont prednisone, levaquin, Duonebs, Spiriva, Symbicort. Pulm recommending pulm rehab --daughters feel this would be great for her because she doesn't move much at home. Pt feels her leg swelling and initial chest pressure with deep breaths have resolved per patient. Daliresp started this admission to decrease risk of future COPD exacerbation. Cont chest PT and flutter valve. Cont PT/OT. Not moving much air on exam but no wheezing; this may be her baseline. Cont to monitor through the weekend. Daily weights ordered. Cont torsemide. Pt is at baseline oxygen function. She also reports feeling at her baseline exercise tolerance. Pulmonary agrees with this assessment. 2. Chronic CO2 retention 2/2 severe COPD-cont nightly BIPAP 2. Chest pain: ACS ruled out initially with negative serial cardiac enzymes and echo revealing no wall motion abnormality. EKG revealed NSR 87. She states no recurrent chest pain at home prior to arrival. Appears that cardiac disease is stable. Cont medical management at this time (ASA, Coreg, statin) 3. R leg swelling-resolved. No pain in leg, RLE US revealed no evidence of DVT. 4. DMII-controlled with A1C 6.4 . On Januvia as outpatient which was held on admission. Currently at goal. Cont ISS with carb coverage. Restart home meds at discharge. 5. CKD III: at baseline, avoid nephrotoxic agents if able. Renal dosing of meds. 6. Anemia-Improved, currently on iron supplementation. Likely 2/2 ACD and iron deficiency. No transfusion needed at this time. Monitor PRN. 7. Hypothyroidism-stable, cont home Synthroid at 75mcg PO daily. 8. Insomnia-pt reports taking Tylenol PM at home every night. Was given Ambien last night but this didn't work for her. Given Benadryl which helped her sleep 9. Leukocytosis-likely 2/2 steroids. On day of discharge she was afebrile and hemodynamically stable. She was breathing, mentating and ambulating at baseline. Physical exam was unremarkable aside from poor airflow with no audible wheezes heard. She was discharged in stable condition with strong recommendation for pulmonary rehab. After discharge, her sputum culture grew resistant Pseudomonas which had been present in years past, with intermediate sensitivity to Levaquin which was given in the hospital. Message was sent to her PCP who saw her in follow-up. Total time spent on discharge = 60 minutes This includes examination of the patient, discharge planning, medication reconciliation, and communication with other providers. Discharge Instructions Discharge Instructions Date of Service Jan 07, 2017. Admission Reason for Admission: Copd Exacerbation Discharge Discharge Diagnosis / Problem: Acute diastolic CHF exacerbation, Acute COPD exacerbation Discharge Goals Goal(s): Prevent Disease Progression Activity Recommendations Activity Limitations: per Instructions/Follow-up section . Instructions / Follow-Up Instructions / Follow-Up Call your Primary Care doctor if any of the following symptoms or problems start or get worse: * Shortness of breath or difficulty breathing * Wake up at night short of breath * Chest pain * Cough * Swelling of your hands, feet, or legs * More fatigued or tired with your normal activity * Palpitations - sudden fast heart beats WEIGHT * Weigh yourself every morning after using the bathroom. * Use the same scale. * Wear the same amount of clothing. * Write your weight down on a chart. * Call your Primary Care doctor if you gain more than 2-3 pounds in 1-2 days. MEDICATIONS * Use this discharge instruction sheet for medication instructions. * Take your medications at the time your doctor ordered. * Do not skip a dose of your medicines. * If you miss a dose of medicine, take it as soon as possible, but DO NOT DOUBLE A DOSE. * Read your medicine information when you get home. * Know all of the side effects of your medicine. If in doubt, ask your pharmacist * Call your Primary Care doctor's office if you have any side effects. * Be sure all of your doctors know what medicine and herbs you take (including cold, flu, and herbal medicine). Take the following with you to your follow-up doctor appointments: * Weight Chart * Medication List * List of questions Do not drink excessive alcohol, beer or wine. ADDITIONAL PROVIDER INSTRUCTIONS: 1. Please take all medications as instructed. Please note multiple changes to prior meds. 2. You have a follow-up appointment with Dr. Samano on , 01/12 @ 2: 45pm at the [facility]. Please bring all paperwork from this hospitalization and arrive 15 minutes early. 3. You will need to follow-up with Dr. Pabon ([facility]) regarding a follow-up appointment post-hospital discharge for lung issues, and also to set up pulmonary rehab. His office number is [phone]. It was a pleasure taking care of you! Call if you have any questions or problems. You can reach a [facility] hospitalist on duty at [facility] 24 hours a day by calling [phone]. Take care of yourself. Symone Hudson DO [facility] Hospitalist Current Hospital Diet Patient's current hospital diet: AHA Diet (Heart Healthy), Diabetes Type 2 Diet Discharge Diet Recommended Diet: AHA Diet (Heart Healthy), Diabetes Type 2 Diet Procedures Procedures Performed: TTE: Normal LV chamber size with mild concentric LVH. Normal LV systolic function, EF 55-60%. No segmental left ventricular wall motion abnormalities are noted. Grade I diastolic dysfunction. Aortic valve sclerosis mild, without significant aortic valvular stenosis. Pending Studies Studies pending at discharge: yes List of pending studies: finalized sputum culture pending at discharge. Medical Emergencies . Who to Call and When: Call 911 or go to the Emergency Room if: * If at any time you feel your situation is an emergency * You have tightness or pain in your chest that does not go away with rest or Nitroglycerin * You are very short of breath even with rest . Non-Emergent Contact Non-Emergency issues call your: Primary Care Provider . . "Provider Documentation" section prepared by Symone Hudson. . VTE Core Measure Inpt VTE Proph given/why not?: Unfractionated heparin SQ Additional Copies To Hakan Samano M.D.; Acosta Pabon MD
--- NOTE | 2017-01-07 14:28 | Progress Note ---
Progress Note Date of Service Jan 07, 2017. Progress Note 2:30pm. Called and spoke with daughter, Cleopatra, regarding update and plan going home. All questions were answered, 10 minute conversation. Reviewed dc plans. DO Tristan
== END 2017-01-07 15:45 | disposition home or self-care (01) | DRG 291 ==
LOC: EDBD 16:33 → C.EDA 16:35 → C.MSICU 18:50 → CANRESERV 19:05 → ENRESERV 19:05 → EDBEDREQ 01-05 17:17 → CANRESERV 01-05 17:18 → ENRESERV 01-05 17:18 → C.2T 01-05 19:01
PROVIDERS: ADMIT Internal Medicine; ATTEND Hospitalist
DX: I13.0 Hypertensive heart and chronic kidney disease with heart failure and stage 1 through stage 4 chronic kidney disease, or unspecified chronic kidney disease (principal); J96.21 Acute and chronic respiratory failure with hypoxia; J96.22 Acute and chronic respiratory failure with hypercapnia; I50.31 Acute diastolic (congestive) heart failure; J44.1 Chronic obstructive pulmonary disease with (acute) exacerbation; R07.89 Other chest pain; M79.89 Other specified soft tissue disorders; E11.22 Type 2 diabetes mellitus with diabetic chronic kidney disease; N18.3 Chronic kidney disease, stage 3 (moderate); I25.10 Atherosclerotic heart disease of native coronary artery without angina pectoris; D50.9 Iron deficiency anemia, unspecified; D63.8 Anemia in other chronic diseases classified elsewhere; E03.9 Hypothyroidism, unspecified; G47.00 Insomnia, unspecified; E87.6 Hypokalemia; D72.829 Elevated white blood cell count, unspecified; Z99.81 Dependence on supplemental oxygen; Z87.891 Personal history of nicotine dependence; Z79.82 Long term (current) use of aspirin; Z79.899 Other long term (current) drug therapy; Z83.3 Family history of diabetes mellitus; Z82.49 Family history of ischemic heart disease and other diseases of the circulatory system

== ENCOUNTER 2017-01-22 14:07 | Emergency (ER) | payer OTHER, MEDICARE ==
[~2017-01-22] VITALS: Ht 157.5 cm; Wt 72.0 kg
[~2017-01-22 14:07] MED LIST changes: +DLR500 PO; +DMD20 PO; -DXY100 PO; -FLVHFA110 INH; -IPRA-2 INH; +IPRASOL4 INH; -LSX20 PO; +MCRK20 PO; +PRD20 PO; -PRED20TA2 PO; +SLFEC500 PO; -SPRIN INH; +SPRIN/30 INH; -SULF500T35 PO; +SYMIN INH; -[UNRECOGNIZED DRUG - CODE] PO
[2017-01-22 14:20] VITALS: Ht 157.5 cm; Wt 72.0 kg
[2017-01-22] MEDS ORDERED: OXYCODONE HCL IR 5 MG TAB (IMMEDIATE RELEASE) PO STA (15:33)
[2017-01-22] MEDS ORDERED: ALBUT/IPRATROP 3MG/0.5MG NEB 3 ML VIAL INH STA (15:33)
--- NOTE | 2017-01-22 15:59 | EMERGENCY ROOM VISIT NOTE ---
History Report prepared by Azra: Rach Garrett Under the Supervision of: Dr. Rajeev Gallegos D.O. First contact with patient: 15:25 Chief Complaint: HEAD INJURY (MINOR) Stated Complaint: FALL, HEAD AND L WRIST History of Present Illness The patient is a 76 year old female who presents to the Emergency Room with complaints of an episode of a fall beginning just [employer]. The patient states that she was moving a chair yesterday and slipped on the stairs and fell backwards down. She reports that she hit her head and fell onto her left arm but did not lose consciousness. She notes that she was not able to get up after but this is not unusual. She complains of left wrist pain, left shoulder pain, and head pain and notes that she takes a baby aspirin every day. The patient denies any leg pain and right shoulder pain. She states that she has a history of Crohn's and notes that she was seen here a few weeks ago for CHF. Source of History: patient Onset: yesterday Position: other (global) Quality: other (fall) Timing: other (episode) Note: She complains of left wrist pain, left shoulder pain, and head pain and notes that she takes a baby aspirin every day. The patient denies any leg pain and right shoulder pain. Review of Systems See HPI for pertinent positives & negatives. A total of 10 systems reviewed and were otherwise negative. Past Medical & Surgical Medical Problems: (1) Anemia of chronic disease (2) Asthma, allergic (3) Benign hypertension (4) Carotid stenosis, bilateral (5) Chronic obstructive lung disease (6) CKD (chronic kidney disease), stage III (7) COPD exacerbation (8) COPD exacerbation (9) Coronary artery disease (10) Crohn s disease (11) Diabetes mellitus type 2 (12) Diastolic CHF (13) Dyslipidemia (14) Encounter for removal of vascular catheter (15) Generalized anxiety disorder (16) History of PSVT (paroxysmal supraventricular tachycardia) (17) Hypothyroidism (18) Osteoporosis (19) Peristomal hernia (20) Respiratory failure, hgizy-rw-[id number] (21) Small bowel obstruction Surgical Problems: (1) Hernia repair (2) History of carpal tunnel surgery of right wrist (3) History of colostomy (4) S/P appendectomy (5) S/P cardiac cath (6) S/P hysterectomy (7) S/P tonsillectomy and adenoidectomy Family History Diabetes mellitus FH: cancer Heart disease Social History Smoking Status: Former Smoker Alcohol Use: none Drug Use: none Marital Status: , in relationship Housing Status: lives with family Occupation Status: retired Current/Historical Medications Scheduled Aspirin (Aspirin Ec), 81 MG PO DAILY Budesonide/Formoterol Fumarate (Symbicort 160-4.5 Mcg/Act), 2 PUFFS INH BID Carvedilol (Carvedilol), 6.25 MG PO BID Cholecalciferol (Vitamin D 1000 Unit), 400 INTER.UNIT PO DAILY Citalopram Hydrobromide (Citalopram Hydrobromide), 10 MG PO DAILY Cyanocobalamin (Vitamin B-12), 1,000 MCG PO DAILY Denosumab (Prolia), 60 MG SQ Q 6 Months Ferrous Sulfate (Ferrous Sulfate), 325 MG PO DAILY Folic Acid (Folic Acid), 1 MG PO DAILY Home O2 Therapy (Oxygen), 4 LITER NA CONTINOUS Ipratropium-Albuterol (Duoneb), 1 TREATMENT INH Q4H Levothyroxine Sodium (Levothyroxine Sodium), 75 MCG PO DAILY Ocuvite Preservision (Ocuvite Preservision), 1 TAB PO BID Pantoprazole (Protonix), 40 MG PO BID Potassium Chloride (Klor-Con M20), 20 MEQ PO DAILY Rosuvastatin Calcium (Crestor), 20 MG PO DAILY Sitagliptin (Januvia), 25 MG PO DAILY Sulfasalazine (Sulfasalazine), 2 TAB PO TID Tiotropium [place] (Spiriva Handihaler), 1 PUFF INH QAM Torsemide (Torsemide), 1 TAB PO DAILY Zinc (Zinc), 50 MG PO DAILY Scheduled PRN Mupirocin (Bactroban 2% Oint), Unknown Dose TOP TID PRN for Oxycodone Immediate Rel Tab (Roxicodone Ir), 1-2 TAB PO Q4H PRN for Severe Pain Durable Medical Equipment [Nocturnal pulse ox] [bipap] Allergies Coded Allergies: NO KNOWN DRUG ALLERGIES (Verified Allergy, Unknown, ., 01/05/17) Levofloxacin (Verified Adverse Reaction, Unknown, Arm itching after infusion finished, 01/05/17) Physical Exam Vital Signs Date Time Temp Pulse Resp B/P (MAP) Pulse Ox O2 Delivery O2 Flow Rate FiO2 01/22/17 19:22 36.8 90 18 127/55 100 01/22/17 19:19 90 18 127/55 100 Nasal Cannula 4.0 01/22/17 18:34 94 18 122/57 100 Nasal Cannula 4.0 01/22/17 16:00 88 18 163/85 99 Nasal Cannula 4.0 01/22/17 14:20 36.8 129 20 116/62 93 Nasal Cannula 4.0 Physical Exam GENERAL: Patient is awake, alert, somewhat anxious appearing and uncomfortable. EYES: The conjunctivae are clear. The pupils are round and reactive. EARS, NOSE, MOUTH AND THROAT: The nose is without any evidence of any deformity. Mucous membranes are moist tongue is midline NECK: The neck is nontender and supple. RESPIRATORY: Shallow respiratons noted with expiratory wheezing in all loera, conversational dyspnea noted. CARDIOVASCULAR: Tachycardic rate and regular rhythm noted there no murmurs rubs or gallops normal S1 normal S2 GASTROINTESTINAL: The abdomen is soft. Bowel sounds are present in all quadrants. Abdomen is nontender BACK: No midline tenderness or or step-off noted range of motion in flexion extension as well as rotation no signs of muscle spasm noted MUSCULOSKELETAL/EXTREMITIES: There is no evidence of gross deformity full range of motion is noted in the hips and shoulders. Lower extremities have no deformity or decreased range of motion. SKIN: There is no obvious evidence of any rash. Ecchymosis and swelling over the left wrist, splint in place [employer]. Abrasion and hematoma to the occipital scalp. NEUROLOGIC: Patient is awake alert and oriented x3 strength is symmetric patellar reflexes are 2+ bilaterally Medical Decision & Procedures ER Provider Diagnostic Interpretation: Radiology results as stated below per my review and radiologist interpretation: CT SCAN OF THE BRAIN WITHOUT IV CONTRAST FINDINGS: Brain parenchyma: There are age-related involutional changes noting xysp-oo-fkyetjan patchy subcortical and periventricular microangiopathic change. A chronic lacunar infarct is again seen in the left cerebellar hemisphere. There is no hemorrhage, mass effect, or evidence of acute territorial ischemia by CT criteria. Mineralization is noted in the basal ganglia. Wong-white matter is preserved. No extra-axial fluid collection is seen. Ventricles, sulci, cisterns: Prominent secondary to involutional change. Intracranial vasculature: There is atherosclerotic calcification of the cavernous carotid and vertebral arteries. Calvarium: The skeletal structures are osteopenic. No depressed calvarial fracture is seen. Sinuses and mastoids: The visualized paranasal sinuses are clear. The mastoid air cells are well pneumatized. Orbits: The bony orbits are grossly intact. There are bilateral ocular lens implants. IMPRESSION: Senescent changes as above with no hemorrhage, mass effect, or evidence of acute territorial ischemia by CT criteria. Electronically signed by: Pedrito Pacheco M.D. 01/22/2017 4:49 PM Dictated Date/Time: 01/22/2017 4:[address] SCAN OF THE CERVICAL SPINE FINDINGS: Skeletal structures: The skeletal structures are osteopenic. There is no evidence of fracture or subluxation involving the cervical spine. Vertebral body height is maintained. There is minimal anterolisthesis at C3-C4. Alignment is otherwise preserved. There is straightening of the cervical lordosis. The odontoid process and lateral masses are intact. The atlantoaxial articulation is preserved noting productive degenerative change. The spinous processes appear intact. Tiny anterior osteophytes are seen throughout. There is moderate multilevel cervical spondylosis. Uncovertebral and facet arthropathy contribute to neural foraminal stenosis at most levels. Intervertebral discs: Mild to moderate degenerative disc space narrowing is seen at C4-C5 through C6-C7. Central canal: Tiny posterior disc osteophyte complexes at C4-C5, C5-C6, and C6-C7 may contribute to mild acquired compromise of the central canal. Soft tissues: The prevertebral and paraspinous soft tissues are within normal limits. There is advanced atherosclerotic calcification of the carotid arteries. Calvarium: The visualized calvarium at the skull base appears intact. Brain parenchyma: A chronic lacunar infarct is noted in the left cerebellar hemisphere. Partially visualized brain parenchyma the skull base is otherwise within normal limits noting involutional change. Sinuses and mastoids: The visualized paranasal sinuses are clear. The mastoid air cells are well pneumatized. Lung apices: Advanced emphysematous change is seen in the upper lobes. A left apical nodular opacity has almost completely resolved from 04/10/2016. The imaged upper lobe lung parenchyma is otherwise clear. IMPRESSION: 1. There is no evidence of fracture or subluxation involving the cervical spine. 2. Osteopenia and spondylotic change as above. 3. Advanced emphysema is noted in the upper lobes. Electronically signed by: Pedrito Pacheco M.D. 01/22/2017 4:54 PM Dictated Date/Time: 01/22/2017 4:46 PM LEFT WRIST 4 VIEWS FINDINGS: 4 views of left wrist are obtained. No prior studies are available for comparison at the time of dictation. The skeletal structures are osteopenic. There is an impacted and comminuted fracture of the distal radial metaphysis with intra-articular extension and posteriorly distracted fragments. There is also a nonobstructed fracture through the base of the ulnar styloid. Overlying soft tissue edema is noted. Mild degenerative narrowing seen at the radiocarpal articulation, and there is mild arthritic change at the first carpometacarpal joint. IMPRESSION: Distal radial and ulnar fractures as above with overlying soft tissue edema. Electronically signed by: Pedrito Pacheco M.D. 01/22/2017 5:05 PM Dictated Date/Time: 01/22/2017 5:01 PM Medications Administered Medications (Trade) Dose Ordered Sig/Gilbert Route Start Time Stop Time Status Last Admin Dose Admin Oxycodone HCl (Roxicodone Immediate Rel Tab) 5 mg NOW STAT PO 01/22/17 15:33 01/22/17 15:35 DC 01/22/17 16:02 5 MG Albuterol/ Ipratropium (Duoneb) 3 ml NOW STAT INH 01/22/17 15:33 01/22/17 15:35 DC 01/22/17 16:02 3 ML ED Course 1525: The patient was evaluated in room A10. A complete history and physical examination were performed. 1533: Duoneb 3ml INH, Oxycodone HCl 5mg PO. 1852: Upon reevaluation, the patient is doing well. I discussed the results and treatment plan with the patient. She verbalized agreement of the treatment plan. The patient was discharged home. Medical Decision Differential diagnosis: Etiologies such as fracture, dislocation, intra-abdominal, pneumothorax, intrathoracic , intracranial, neurologic, as well as other traumatic pathologies were entertained. Nursing notes reviewed. Additional history is obtained from the patient's daughters. The patient is a 76-year-old female who presented to the emergency department for an evaluation of left wrist injury. The patient was seen at [facility] initially for this injury. Her daughters were concerned because she had an injury as well and they wanted her to follow-up at our facility for her orthopedic injury. The injury was re-x-rayed and there does not appear to be significant displacement. I discussed the patient's radiographic studies with her and her daughter. The x-rays were reviewed by the orthopedic physician of their choice. At this time this may not require surgical intervention and given the patient's overall medical condition she would not likely be a great candidate for surgery or general anesthesia. They were encouraged to call primary orthopedic physician in the morning to schedule follow-up appointment. She was placed in a different splint and given pain medication in the emergency department. She tolerated this well. There were encouraged to return the emergency Department immediately if symptoms change worsen or the need arises. Medication Reconcilliation Current Medication List: was personally reviewed by me Blood Pressure Screening Patient's blood pressure: Normal blood pressure Blood pressure disposition: Did not require urgent referral Impression Primary Impression: Fall Additional Impressions: Head injury Fracture of left distal radius Cervical strain Scribe Attestation The scribe's documentation has been prepared under my direction and personally reviewed by me in its entirety. I confirm that the note above accurately reflects all work, treatment, procedures, and medical decision making performed by me. Departure Information Dispostion Home / Self-Care Prescriptions Oxycodone Immediate Rel Tab (ROXICODONE IR) 5 Mg Tab 1-2 TAB PO Q4H Y for Severe Pain, #24 TAB Prov: Rajeev Gallegos, DO 01/22/17 Referrals Hakan Samano M.D. (PCP) Forms HOME CARE DOCUMENTATION FORM, IMPORTANT VISIT INFORMATION Patient Instructions Distal Radius Fx, ED Head Injury Closed, My [facility] Additional Instructions Continue all medications as prescribed. Call the orthopedic physician in the morning to schedule a follow-up appointment. Rest and avoid any strenuous activity. Problem Qualifiers Primary Impression: Fall Encounter type: subsequent encounter Qualified Codes: W19.XXXD - Unspecified fall, subsequent encounter Additional Impressions: Head injury Encounter type: subsequent encounter Qualified Codes: S09.90XD - Unspecified injury of head, subsequent encounter Fracture of left distal radius Encounter type: initial encounter Fracture type: closed Fracture morphology : Colles' Qualified Codes: S52.532A - Colles' fracture of left radius, initial encounter for closed fracture Cervical strain Encounter type: subsequent encounter Qualified Codes: S16.1XXD - Strain of muscle, fascia and tendon at neck level, subsequent encounter
--- NOTE | 2017-01-22 16:51 | DIAGNOSTIC IMAGING REPORT ---
CT SCAN OF THE BRAIN WITHOUT IV CONTRAST CLINICAL HISTORY: Fall. COMPARISON STUDY: CT of the brain dated 04/10/2016. TECHNIQUE: Unenhanced axial CT scan of the brain is performed from the vertex to the skull base. CT DOSE: 1024.71 mGy.cm FINDINGS: Brain parenchyma: There are age-related involutional changes noting lfdk-gk-fprccien patchy subcortical and periventricular microangiopathic change. A chronic lacunar infarct is again seen in the left cerebellar hemisphere. There is no hemorrhage, mass effect, or evidence of acute territorial ischemia by CT criteria. Mineralization is noted in the basal ganglia. Wong-white matter is preserved. No extra-axial fluid collection is seen. Ventricles, sulci, cisterns: Prominent secondary to involutional change. Intracranial vasculature: There is atherosclerotic calcification of the cavernous carotid and vertebral arteries. Calvarium: The skeletal structures are osteopenic. No depressed calvarial fracture is seen. Sinuses and mastoids: The visualized paranasal sinuses are clear. The mastoid air cells are well pneumatized. Orbits: The bony orbits are grossly intact. There are bilateral ocular lens implants. IMPRESSION: Senescent changes as above with no hemorrhage, mass effect, or evidence of acute territorial ischemia by CT criteria. Electronically signed by: Pedrito Pacheco M.D. 01/22/2017 4:49 PM Dictated Date/Time: 01/22/2017 4:47 PM
--- NOTE | 2017-01-22 16:55 | DIAGNOSTIC IMAGING REPORT ---
CT SCAN OF THE CERVICAL SPINE CLINICAL HISTORY: Fall. COMPARISON STUDY: CT scan of the cervical spine dated 04/10/2016. TECHNIQUE: CT scan of the cervical spine is performed from the skull base to the upper thoracic spine. Images are reviewed in the axial, sagittal, and coronal planes. IV contrast was not administered for this examination. A dose lowering technique was utilized adhering to the principles of ALARA. CT DOSE: Reported separately under the concurrently performed CT scan of the brain. FINDINGS: Skeletal structures: The skeletal structures are osteopenic. There is no evidence of fracture or subluxation involving the cervical spine. Vertebral body height is maintained. There is minimal anterolisthesis at C3-C4. Alignment is otherwise preserved. There is straightening of the cervical lordosis. The odontoid process and lateral masses are intact. The atlantoaxial articulation is preserved noting productive degenerative change. The spinous processes appear intact. Tiny anterior osteophytes are seen throughout. There is moderate multilevel cervical spondylosis. Uncovertebral and facet arthropathy contribute to neural foraminal stenosis at most levels. Intervertebral discs: Mild to moderate degenerative disc space narrowing is seen at C4-C5 through C6-C7. Central canal: Tiny posterior disc osteophyte complexes at C4-C5, C5-C6, and C6-C7 may contribute to mild acquired compromise of the central canal. Soft tissues: The prevertebral and paraspinous soft tissues are within normal limits. There is advanced atherosclerotic calcification of the carotid arteries. Calvarium: The visualized calvarium at the skull base appears intact. Brain parenchyma: A chronic lacunar infarct is noted in the left cerebellar hemisphere. Partially visualized brain parenchyma the skull base is otherwise within normal limits noting involutional change. Sinuses and mastoids: The visualized paranasal sinuses are clear. The mastoid air cells are well pneumatized. Lung apices: Advanced emphysematous change is seen in the upper lobes. A left apical nodular opacity has almost completely resolved from 04/10/2016. The imaged upper lobe lung parenchyma is otherwise clear. IMPRESSION: 1. There is no evidence of fracture or subluxation involving the cervical spine. 2. Osteopenia and spondylotic change as above. 3. Advanced emphysema is noted in the upper lobes. Electronically signed by: Pedrito Pacheco M.D. 01/22/2017 4:54 PM Dictated Date/Time: 01/22/2017 4:46 PM
--- NOTE | 2017-01-22 17:06 | DIAGNOSTIC IMAGING REPORT ---
LEFT WRIST 4 VIEWS CLINICAL HISTORY: Fall with left wrist pain. FINDINGS: 4 views of left wrist are obtained. No prior studies are available for comparison at the time of dictation. The skeletal structures are osteopenic. There is an impacted and comminuted fracture of the distal radial metaphysis with intra-articular extension and posteriorly distracted fragments. There is also a nonobstructed fracture through the base of the ulnar styloid. Overlying soft tissue edema is noted. Mild degenerative narrowing seen at the radiocarpal articulation, and there is mild arthritic change at the first carpometacarpal joint. IMPRESSION: Distal radial and ulnar fractures as above with overlying soft tissue edema. Electronically signed by: Pedrito Pacheco M.D. 01/22/2017 5:05 PM Dictated Date/Time: 01/22/2017 5:01 PM
[2017-01-22] MEDS ORDERED: OXYC1TAB3 PO (18:42)
[2017-01-22 19:22] VITALS: BP 127/55; PULSE 90; TEMP 36.8; O2SAT 100
== END 2017-01-22 19:23 | disposition home or self-care (01) ==
LOC: C.EDB 14:08 → C.EDA 19:23
DX: S09.90XA Unspecified injury of head, initial encounter (principal); S52.532A Colles' fracture of left radius, initial encounter for closed fracture; S16.1XXA Strain of muscle, fascia and tendon at neck level, initial encounter; W10.9XXA Fall (on) (from) unspecified stairs and steps, initial encounter; K50.90 Crohn's disease, unspecified, without complications; J45.909 Unspecified asthma, uncomplicated; I12.9 Hypertensive chronic kidney disease with stage 1 through stage 4 chronic kidney disease, or unspecified chronic kidney disease; J44.9 Chronic obstructive pulmonary disease, unspecified; I65.23 Occlusion and stenosis of bilateral carotid arteries; N18.3 Chronic kidney disease, stage 3 (moderate); I25.10 Atherosclerotic heart disease of native coronary artery without angina pectoris; E11.22 Type 2 diabetes mellitus with diabetic chronic kidney disease; I50.30 Unspecified diastolic (congestive) heart failure; E78.5 Hyperlipidemia, unspecified; F41.1 Generalized anxiety disorder; E03.9 Hypothyroidism, unspecified; R00.0 Tachycardia, unspecified; M81.0 Age-related osteoporosis without current pathological fracture; Z79.82 Long term (current) use of aspirin; Z90.710 Acquired absence of both cervix and uterus; Z87.891 Personal history of nicotine dependence; Z83.3 Family history of diabetes mellitus

== ENCOUNTER 2017-04-16 07:27 | Emergency (ER) | payer OTHER, MEDICARE ==
[~2017-04-16] VITALS: Ht 157.5 cm; Wt 74.4 kg
[~2017-04-16 07:27] MED LIST changes: -DLR500 PO; +OXYC1TAB3 PO; -PRD20 PO
[2017-04-16 07:33] VITALS: TEMP 36.6; Ht 157.5 cm; Wt 74.4 kg
--- NOTE | 2017-04-16 07:46 | EMERGENCY ROOM VISIT NOTE ---
History Report prepared by Azra: Kely Chinchilla Under the Supervision of: Dr. Timo Mcgrath M.D. First contact with patient: 07:30 Stated Complaint: ABD PAIN History of Present Illness The patient is a 76 year old female who presents to the Emergency Room with complaints of abdominal pain which she describes as an ache beginning last night. The patient reports that the ache is on her right side and that she has a hernia there. She also states that she has to frequently urinate. She denies nausea, chest pain, headaches, neck pain, and shortness of breath. She reports that she cleaned her ostomy at 2100 last night, and states that she has a history of resections. The patient denies any recent falls or injuries. Source of History: patient Onset: last night Position: abdomen Quality: ache Associated Symptoms: No headache, No neck pain, No chest pain, No nausea Note: additional symptom: frequent urination Review of Systems See HPI for pertinent positives & negatives. A total of 10 systems reviewed and were otherwise negative. Past Medical & Surgical Medical Problems: (1) Anemia of chronic disease (2) Asthma, allergic (3) Benign hypertension (4) Carotid stenosis, bilateral (5) Chronic obstructive lung disease (6) CKD (chronic kidney disease), stage III (7) COPD exacerbation (8) COPD exacerbation (9) Coronary artery disease (10) Crohn s disease (11) Diabetes mellitus type 2 (12) Diastolic CHF (13) Dyslipidemia (14) Encounter for removal of vascular catheter (15) Generalized anxiety disorder (16) History of PSVT (paroxysmal supraventricular tachycardia) (17) Hypothyroidism (18) Osteoporosis (19) Peristomal hernia (20) Respiratory failure, [id number] (21) Small bowel obstruction Surgical Problems: (1) Hernia repair (2) History of carpal tunnel surgery of right wrist (3) History of colostomy (4) S/P appendectomy (5) S/P cardiac cath (6) S/P hysterectomy (7) S/P tonsillectomy and adenoidectomy Family History Diabetes mellitus FH: cancer Heart disease Social History Smoking Status: Former Smoker Alcohol Use: none Drug Use: none Marital Status: single Housing Status: lives with family Occupation Status: retired Current/Historical Medications Scheduled Aspirin (Aspirin Ec), 81 MG PO DAILY Budesonide/Formoterol Fumarate (Symbicort 160/4.5 Inhaler), 2 PUFFS INH BID Carvedilol (Carvedilol), 6.25 MG PO BID Cholecalciferol (Vitamin D 1000 Unit), 400 INTER.UNIT PO DAILY Citalopram Hydrobromide (Citalopram Hydrobromide), 10 MG PO DAILY Cyanocobalamin (Vitamin B-12), 1,000 MCG PO DAILY Denosumab (Prolia), 60 MG SQ Q 6 Months Ferrous Sulfate (Ferrous Sulfate), 325 MG PO DAILY Folic Acid (Folic Acid), 1 MG PO DAILY Home O2 Therapy (Oxygen), 4 LITER NA CONTINOUS Ipratropium-Albuterol (Duoneb), 1 TREATMENT INH Q4H Levothyroxine Sodium (Levothyroxine Sodium), 75 MCG PO DAILY Ocuvite Preservision (Ocuvite Preservision), 1 TAB PO BID Pantoprazole (Protonix), 40 MG PO BID Potassium Ext Rel (Klor-Con), 20 MEQ PO DAILY Roflumilast (Daliresp), 1 TAB PO DAILY Rosuvastatin Calcium (Crestor), 20 MG PO DAILY Sitagliptin (Januvia), 25 MG PO DAILY Sulfasalazine (Sulfasalazine), 2 TAB PO TID Tiotropium [place] (Spiriva Handihaler), 1 PUFF INH QAM Torsemide (Demadex), 20 MG PO DAILY Zinc (Zinc), 50 MG PO DAILY Scheduled PRN Mupirocin (Bactroban 2% Oint), Unknown Dose TOP TID PRN for Miscellaneous Medications [Bipap] Allergies Coded Allergies: NO KNOWN DRUG ALLERGIES (Verified Allergy, Unknown, ., 04/16/17) Levofloxacin (Verified Adverse Reaction, Unknown, Arm itching after infusion finished, 04/16/17) Physical Exam Vital Signs Date Time Temp Pulse Resp B/P (MAP) Pulse Ox O2 Delivery O2 Flow Rate FiO2 04/16/17 10:45 102 18 142/54 98 Nasal Cannula 04/16/17 09:03 82 18 144/66 100 Nasal Cannula 4.0 04/16/17 07:33 36.6 87 18 107/60 95 Nasal Cannula 4.0 Physical Exam GENERAL: Patient is elderly appearing and in minimal distress. HEENT: No acute trauma, normocephalic atraumatic, mucous membranes moist, no nasal congestion, no scleral icterus. NECK: No stridor, no adenopathy, no meningismus, trachea is midline. LUNGS: No dyspnea. Clear to auscultation and equal bilaterally. No wheeze, no rhonchi. HEART: Regular rate and rhythm. No murmurs, rubs, gallops appreciated. ABDOMEN: Soft, nontender, mildly distended, hypoactive bowel sounds and no stool in ostomy right abdomen, no masses appreciated, no peritonitis. BACK: No midline tenderness, no CVA tenderness EXTREMITIES: Normal motion all extremities, no cyanosis, no edema. NEUROLOGIC: Alert and oriented, no acute motor or sensory deficits, no focal weakness, cranial nerves grossly intact. SKIN: No rash, no jaundice, no diaphoresis. Medical Decision & Procedures ER Provider Diagnostic Interpretation: Radiology results and stated below per my review and radiologist interpretation: ABD/PELVIS WITHOUT FOR STONE HISTORY: 76 years-old Female abdominal discomfort, no bowel out x 12 hours acute generalized abdominal pain. Status post partial colectomy with right lower quadrant diverging colostomy. History of parastomal hernia. COMPARISON: CT abdomen and pelvis 07/26/2014 TECHNIQUE: Multiple axial CT images of the abdomen and pelvis were obtained without contrast. A dose lowering technique was used consistent with the principals of NILDA. FINDINGS: There is moderate bronchial wall thickening of the lung bases with small left Bochdalek hernia. Subpleural reticular opacities with tree-in-bud nodularity involves the right lung base with areas of mild bronchiectasis and mucous plugging. Mild edematous changes are also present. There is no pneumoperitoneum identified. Inferior cardiac chambers are mildly enlarged with coronary arterial calcifications. Decreased attenuation of the cardiac blood pool is compatible with anemia. Nonspecific 3 mm calcification is noted within the region of the right portal vein which is unchanged. The liver is unremarkable. Gallbladder, spleen, pancreas and adrenal glands are unremarkable. Areas of cortical lobulation and parenchymal scarring are seen throughout the left kidney. 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 There are at least 8 nonobstructing renal calculi of the right kidney, largest of which measure up to 4 mm. There is mild right-sided hydroureteronephrosis with mild perinephric inflammatory stranding secondary to at least 2 calculi of the distal right ureter. There is a 2 mm calculus seen on image 335 of series 3 approximately 2.5 cm proximal to the UVJ. Additionally, there appears to be 2 separate calculi at the right UVJ measuring approximately 2.5 mm in greatest dimension measuring up to 5 mm in length cumulatively as seen on the coronal images. Urinary bladder is partially collapsed. The left ureter is unremarkable. There are multiple phleboliths of the pelvis. Moderate bilateral fat filled inguinal hernias. No adnexal mass lesions. Uterus appears to be surgically absent. Extensive atherosclerosis of the abdominal aorta with ectasia of the infrarenal abdominal aorta measuring up to 2.3 x 2.3 cm. There is no bulky adenopathy identified. There is no bowel obstruction. Lipoma of the duodenum measures 11 mm. 5.3 cm stool ball of the rectum. Postoperative changes compatible with prior partial colectomy and right lower quadrant diverting loop colostomy. Surgical clips are seen surrounding the colostomy site. Persistent parastomal hernia containing nonobstructed loops of large and small bowel as well as mesenteric fat. Probable mild fat necrosis of the subcutaneous ventral abdominal wall. Diastases recti. The bones are moderately demineralized. Degenerative changes of the spine and hips. IMPRESSION: 1. Mild right-sided hydroureteronephrosis secondary to 2-3 calculi of the distal right ureter as above. There appears to be two separate calculi at the right UVJ each measuring approximately 2.5 mm . Multiple additional right-sided renal calculi as above. 2. 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 3. Postsurgical changes compatible with partial colectomy and diverting right lower quadrant colostomy. Nonobstructed parastomal hernia containing mesenteric fat, small and large bowel redemonstrated. 4. Emphysema with right lung base pneumonitis, mild bronchiectasis with mucous plugging. 5. Anemia. 6. Additional findings as above. The above report was generated using voice recognition software. It may contain grammatical, syntax or spelling errors. Electronically signed by: Wolf Arndt M.D. 04/16/2017 8:38 AM Dictated Date/Time: 04/16/2017 8:22 AM Laboratory Results 04/16/17 07:58 Red Blood Count 2.83, Mean Corpuscular Volume 98.2, Mean Corpuscular Hemoglobin 29.7, Mean Corpuscular Hemoglobin Concent 30.2, Mean Platelet Volume 9.3, Neutrophils (%) (Auto) 81.9, Lymphocytes (%) (Auto) 8.7, Monocytes (%) (Auto) 5.8, Eosinophils (%) (Auto) 3.1, Basophils (%) (Auto) 0.3, Neutrophils # (Auto) 11.82, Lymphocytes # (Auto) 1.25, Monocytes # (Auto) 0.83, Eosinophils # (Auto) 0.44, Basophils # (Auto) 0.04 04/16/17 07:58 Test 04/16/17 07:50 04/16/17 07:58 Urine Color DK YELLOW Urine Appearance CLOUDY (CLEAR) Urine pH 5.0 (4.5-7.5) Urine Specific [place] 1.023 (1.000-1.030) Urine Protein 1+ (NEG) Urine Glucose (UA) NEG (NEG) Urine Ketones NEG (NEG) Urine Occult Blood NEG (NEG) Urine Nitrite NEG (NEG) Urine Bilirubin NEG (NEG) Urine Urobilinogen NEG (NEG) Urine Leukocyte Esterase TRACE (NEG) Urine WBC (Auto) 5-10 /hpf (0-5) Urine RBC (Auto) 0-4 /hpf (0-4) Urine Hyaline Casts (Auto) 5-10 /lpf (0-5) Urine Epithelial Cells (Auto) >30 /lpf (0-5) Urine Bacteria (Auto) NEG (NEG) Urine Renal Epithelial Cells 0-5 /lpf (0-5) Urine Crystals See comments (NONE PRSENT) Urine Pathogenic Casts 5-10 GRANULAR CASTS /lpf (0) Urine Yeast (Auto) (NONE PRSENT) White Blood Count 14.41 K/uL (4.8-10.8) Red Blood Count 2.83 M/uL (4.2-5.4) Hemoglobin 8.4 g/dL (12.0-16.0) Hematocrit 27.8 % (37-47) Mean Corpuscular Volume 98.2 fL (80-100) Mean Corpuscular Hemoglobin 29.7 pg (25-34) Mean Corpuscular Hemoglobin Concent 30.2 g/dl (32-36) Platelet Count 164 K/uL (130-400) Mean Platelet Volume 9.3 fL (7.4-10.4) Neutrophils (%) (Auto) 81.9 % Lymphocytes (%) (Auto) 8.7 % Monocytes (%) (Auto) 5.8 % Eosinophils (%) (Auto) 3.1 % Basophils (%) (Auto) 0.3 % Neutrophils # (Auto) 11.82 K/uL (1.4-6.5) Lymphocytes # (Auto) 1.25 K/uL (1.2-3.4) Monocytes # (Auto) 0.83 K/uL (0.11-0.59) Eosinophils # (Auto) 0.44 K/uL (0-0.5) Basophils # (Auto) 0.04 K/uL (0-0.2) RDW Standard Deviation 51.5 fL (36.4-46.3) RDW Coefficient of Variation 14.3 % (11.5-14.5) Immature Granulocyte % (Auto) 0.2 % Immature Granulocyte # (Auto) 0.03 K/uL (0.00-0.02) Stomatocytes 1+ Anion Gap 6.0 mmol/L (3-11) Est Creatinine Clear Calc Drug Dose 25.8 ml/min Estimated GFR () 32.9 Estimated GFR (Non- 28.4 BUN/Creatinine Ratio 11.2 (10-20) Calcium Level 8.8 mg/dl (8.5-10.1) Total Bilirubin 0.3 mg/dl (0.2-1) Direct Bilirubin mg/dl (0-0.2) Aspartate Amino Transf (AST/SGOT) 13 U/L (15-37) Alanine Aminotransferase (ALT/SGPT) 9 U/L (12-78) Alkaline Phosphatase 77 U/L (45-117) Total Protein 7.5 gm/dl (6.4-8.2) Albumin 3.0 gm/dl (3.4-5.0) Lipase 177 U/L (73-393) Chemistry Specimen Hemolysis Laboratory results as reviewed by me. Medications Administered Medications (Trade) Dose Ordered Sig/Gilbert Route Start Time Stop Time Status Last Admin Dose Admin Sodium Chloride 500 ml @ 999 mls/hr Q31M STAT IV 04/16/17 08:47 04/16/17 09:17 DC 04/16/17 09:02 999 MLS/HR Acetaminophen (Tylenol Tab) 1,000 mg NOW STAT PO 04/16/17 09:06 04/16/17 09:07 DC 11/12/17 09:13 1,000 MG ED Course 0730: The patient was evaluated in room A2. A complete history and physical exam was performed. 0845: I checked on the patient. She says she feels alright. We discussed that she has a kidney stone. She is agreeable to IV fluids. 0847: Ordered Sodium Chloride 500 ml @ 999 mls/hr IV. 0906: Ordered Acetaminophen 1,000 mg PO. 0910: I checked on the patient. She notes that all she needed was Tylenol when she broke her wrist. 0915: Reevaluated the patient. Discussed results and discharge instructions: She verbalized understanding and agreement. The patient is ready for discharge. Medical Decision Differential: Appendicitis, Diverticulitis, PUD/Gastritis, Biliary Pathology, UTI, Pyelonephritis, Renal Colic, Bowel Obstruction, Aortic Pathology, Acute Coronary Syndrome, amongst other pathologies entertained. 76 yr old female with right abdominal pain starting overnight. Associated with some urinary frequency. No nausea, vomiting, fevers, urinary burning nor other symptoms. On exam minimal stool out but patient admits eating a lot of peanut butter yesterday which she feels is causing this. She is stable and looks well. CT reveals right distal ureteral stones without acute other findings. Given IV fluids for flushing kidneys. Avoid Flomax given other medical issues. Avoid NSAIDs with renal insufficiency. Tylenol she notes works well for pain. No clear evidence UTI. MIld WBC elevation likely pain related and may be a bit dehydrated. Wishing to go home. DIscussed possibility of early SBO but that keeping well hydrated important. If vomiting, pain, fever, no further bowel outs return for further evaluation. Medication Reconcilliation Current Medication List: was personally reviewed by me Blood Pressure Screening Patient's blood pressure: Normal blood pressure Impression Primary Impression: Right ureteral stone Scribe Attestation The scribe's documentation has been prepared under my direction and personally reviewed by me in its entirety. I confirm that the note above accurately reflects all work, treatment, procedures, and medical decision making performed by me. Departure Information Dispostion Home / Self-Care Referrals Hakan Samano M.D. (PCP) Forms Call Back Authorization, HOME CARE DOCUMENTATION FORM, IMPORTANT VISIT INFORMATION Patient Instructions Kidney Stones Expectant Therapy, [facility]
[2017-04-16 08:14] LABS: BASO % 0.3 %; BASO ABS # 0.04 K/uL (0-0.2); EOS % 3.1 %; HEMATOCRIT 27.8 % (37-47); IG% 0.2 %; LYMPH % 8.7 %; LYMPH ABS # 1.25 K/uL (1.2-3.4); MEAN CELL VOLUME 98.2 fL (80-100); MEAN CORPUSCULAR HEMOGLOBIN 29.7 pg (25-34); MEAN CORPUSCULAR HGB CONC 30.2 g/dl (32-36); MEAN PLATELET VOLUME 9.3 fL (7.4-10.4); MONO % 5.8 %; NEUT % 81.9 %; PLATELET COUNT 164 K/uL (130-400); RED BLOOD COUNT 2.83 M/uL (4.2-5.4); WHITE BLOOD COUNT 14.41 K/uL (4.8-10.8)
[2017-04-16 08:18] LABS: URINE APPEARANCE CLOUDY (CLEAR); URINE BILIRUBIN NEG (NEG); URINE COLOR DK YELLOW; URINE EPITHELIAL CELL AUTO >30 /lpf (0-5); URINE NITRITE NEG (NEG); URINE SPECIFIC GRAVITY 1.023 (1.000-1.030); UROBILINOGEN NEG (NEG); ZZUR CULT IF INDIC CLEAN CATCH YES
[2017-04-16 08:22] LABS: MANUAL MICROSCOPIC REQUIRED? NO; REVIEW REQ? YES
[2017-04-16] MEDS ORDERED: SYMIN160 INH (08:35)
[2017-04-16] MEDS ORDERED: POTA20TA16 PO (08:35)
[2017-04-16] MEDS ORDERED: ROFL1TAB5 PO (08:35)
[2017-04-16] MEDS ORDERED: TORS20TA2 PO (08:35)
--- NOTE | 2017-04-16 08:39 | DIAGNOSTIC IMAGING REPORT ---
ABD/PELVIS WITHOUT FOR STONE HISTORY: 76 years-old Female abdominal discomfort, no bowel out x 12 hours acute generalized abdominal pain. Status post partial colectomy with right lower quadrant diverging colostomy. History of parastomal hernia. COMPARISON: CT abdomen and pelvis 07/26/2014 TECHNIQUE: Multiple axial CT images of the abdomen and pelvis were obtained without contrast. A dose lowering technique was used consistent with the principals of NILDA. FINDINGS: There is moderate bronchial wall thickening of the lung bases with small left Bochdalek hernia. Subpleural reticular opacities with tree-in-bud nodularity involves the right lung base with areas of mild bronchiectasis and mucous plugging. Mild edematous changes are also present. There is no pneumoperitoneum identified. Inferior cardiac chambers are mildly enlarged with coronary arterial calcifications. Decreased attenuation of the cardiac blood pool is compatible with anemia. Nonspecific 3 mm calcification is noted within the region of the right portal vein which is unchanged. The liver is unremarkable. Gallbladder, spleen, pancreas and adrenal glands are unremarkable. Areas of cortical lobulation and parenchymal scarring are seen throughout the left kidney. 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 There are at least 8 nonobstructing renal calculi of the right kidney, largest of which measure up to 4 mm. There is mild right-sided hydroureteronephrosis with mild perinephric inflammatory stranding secondary to at least 2 calculi of the distal right ureter. There is a 2 mm calculus seen on image 335 of series 3 approximately 2.5 cm proximal to the UVJ. Additionally, there appears to be 2 separate calculi at the right UVJ measuring approximately 2.5 mm in greatest dimension measuring up to 5 mm in length cumulatively as seen on the coronal images. Urinary bladder is partially collapsed. The left ureter is unremarkable. There are multiple phleboliths of the pelvis. Moderate bilateral fat filled inguinal hernias. No adnexal mass lesions. Uterus appears to be surgically absent. Extensive atherosclerosis of the abdominal aorta with ectasia of the infrarenal abdominal aorta measuring up to 2.3 x 2.3 cm. There is no bulky adenopathy identified. There is no bowel obstruction. Lipoma of the duodenum measures 11 mm. 5.3 cm stool ball of the rectum. Postoperative changes compatible with prior partial colectomy and right lower quadrant diverting loop colostomy. Surgical clips are seen surrounding the colostomy site. Persistent parastomal hernia containing nonobstructed loops of large and small bowel as well as mesenteric fat. Probable mild fat necrosis of the subcutaneous ventral abdominal wall. Diastases recti. The bones are moderately demineralized. Degenerative changes of the spine and hips. IMPRESSION: 1. Mild right-sided hydroureteronephrosis secondary to 2-3 calculi of the distal right ureter as above. There appears to be two separate calculi at the right UVJ each measuring approximately 2.5 mm . Multiple additional right-sided renal calculi as above. 2. 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 3. Postsurgical changes compatible with partial colectomy and diverting right lower quadrant colostomy. Nonobstructed parastomal hernia containing mesenteric fat, small and large bowel redemonstrated. 4. Emphysema with right lung base pneumonitis, mild bronchiectasis with mucous plugging. 5. Anemia. 6. Additional findings as above. The above report was generated using voice recognition software. It may contain grammatical, syntax or spelling errors. Electronically signed by: Wolf Arndt M.D. 04/16/2017 8:38 AM Dictated Date/Time: 04/16/2017 8:22 AM
[2017-04-16] MEDS ORDERED: BIPAP (08:40)
[2017-04-16 08:42] LABS: ALKALINE PHOSPHATASE 77 U/L (45-117); ALT/SGPT 9 U/L (12-78); AST/SGOT 13 U/L (15-37); BLOOD UREA NITROGEN 19 mg/dl (7-18); BUN/CREATININE RATIO 11.2 (10-20); CALCIUM 8.8 mg/dl (8.5-10.1); CARBON DIOXIDE 36 mmol/L (21-32); CHLORIDE 97 mmol/L (98-107); GLUCOSE 133 mg/dl (70-99); POTASSIUM 3.3 mmol/L (3.5-5.1); SODIUM 139 mmol/L (136-145)
[2017-04-16 08:45] LABS: COMPLETE YES; STOMATOCYTE 1+
[2017-04-16] MEDS ORDERED: SODIUM CHLORIDE 0.9% 500ML 500 ML IV STA (08:47)
[2017-04-16 08:52] LABS: URINE PATH CASTS 5-10 GRANULAR CASTS /lpf (0)
[2017-04-16] MEDS ORDERED: ACETAMINOPHEN 500 MG TAB PO STA (09:06)
[2017-04-16 10:45] VITALS: BP 142/54; PULSE 102; O2SAT 98
== END 2017-04-16 10:45 | disposition home or self-care (01) ==
LOC: EDBD 07:27 → C.EDA 07:29
DX: N20.1 Calculus of ureter (principal); J45.909 Unspecified asthma, uncomplicated; I10 Essential (primary) hypertension; J44.9 Chronic obstructive pulmonary disease, unspecified; I25.10 Atherosclerotic heart disease of native coronary artery without angina pectoris; K50.90 Crohn's disease, unspecified, without complications; E11.9 Type 2 diabetes mellitus without complications; E78.5 Hyperlipidemia, unspecified; F41.9 Anxiety disorder, unspecified; E03.9 Hypothyroidism, unspecified; M81.0 Age-related osteoporosis without current pathological fracture; I47.1 Supraventricular tachycardia; Z83.3 Family history of diabetes mellitus; Z80.9 Family history of malignant neoplasm, unspecified; Z82.49 Family history of ischemic heart disease and other diseases of the circulatory system; Z87.891 Personal history of nicotine dependence; Z79.82 Long term (current) use of aspirin; Z79.899 Other long term (current) drug therapy

== ENCOUNTER → 2017-08-08 | Day surgery (SDC) | payer OTHER, MEDICARE ==
[~2017-08-08] MED LIST changes: +BIPAP; -DMD20 PO; -MCRK20 PO; -OXYC1TAB3 PO; +POTA20TA16 PO; +ROFL1TAB5 PO; -SYMIN INH; +SYMIN160 INH; +TORS20TA2 PO; -[UNRECOGNIZED DRUG - OTHER]; -bipap
== END | disposition home or self-care (01) ==
LOC: C.ACU 12:57
PROVIDERS: ATTEND Family Medicine
DX: Z93.3 Colostomy status (principal)

== ENCOUNTER 2017-10-09 15:08 | Inpatient (IN) | payer OTHER, MEDICARE ==
[~2017-10-09] VITALS: Ht 157.5 cm; Wt 72.9 kg
[2017-10-09 03:35] VITALS: BP 108/57; PULSE 93; TEMP 37.1; O2SAT 94
[~2017-10-09 15:08] MED LIST changes: +POTA-639 PO; -POTA20TA16 PO
--- NOTE | 2017-10-09 15:54 | DIAGNOSTIC IMAGING REPORT ---
CHEST ONE VIEW PORTABLE CLINICAL HISTORY: 77 years-old Female presenting with EVALUATE WEAKNESS. TECHNIQUE: Portable upright AP view of the chest was obtained. COMPARISON: 01/04/2017. FINDINGS: Atherosclerosis of aortic arch. Cardiac silhouette enlarged. Vascular prominence with prominent lung markings. Added density at the lung bases suggested. No focal opacity. No large effusion or pneumothorax. Osseous structures normal. Upper abdomen normal. IMPRESSION: 1. Cardiomegaly with possible volume overload/congestive change. No nishant pulmonary edema. 2. Heterogeneity of lung parenchyma could suggest underlying emphysema. Electronically signed by: Shaquille Zhu M.D. 10/09/2017 3:53 PM Dictated Date/Time: 10/09/2017 3:52 PM
[2017-10-09] MEDS ORDERED: FUROSEMIDE 40 MG/4 ML VIAL IV STA (16:01)
[2017-10-09] MEDS ORDERED: ALBUT/IPRATROP 3MG/0.5MG NEB 3 ML VIAL INH STA ×2 (16:01→18:31)
[2017-10-09] MEDS ORDERED: METHYLPREDNISOLONE 125 MG VIAL IV STA (16:01)
[2017-10-09] MEDS ORDERED: ATRIN INH (16:43)
[2017-10-09 16:50] LABS: BASO % 0.1 %; BASO ABS # 0.02 K/uL (0-0.2); EOS % 0.3 %; EOS ABS # 0.04 K/uL (0-0.5); HEMATOCRIT 31.2 % (37-47); HEMOGLOBIN 9.7 g/dL (12.0-16.0); IG# 0.03 K/uL (0.00-0.02); LYMPH % 1.4 %; MEAN CELL VOLUME 92.9 fL (80-100); MEAN CORPUSCULAR HEMOGLOBIN 28.9 pg (25-34); MEAN CORPUSCULAR HGB CONC 31.1 g/dl (32-36); MEAN PLATELET VOLUME 9.2 fL (7.4-10.4); MONO % 3.2 %; MONO ABS # 0.45 K/uL (0.11-0.59); NEUT % 94.8 %; NEUT ABS # 13.54 K/uL (1.4-6.5); NUCLEATED RED BLOOD CELL ABS 0.02 K/uL (0-0); PLATELET COUNT 140 K/uL (130-400); RED CELL DISTRIBUTION WIDTH CV 15.5 % (11.5-14.5); RED CELL DISTRIBUTION WIDTH SD 52.6 fL (36.4-46.3); WHITE BLOOD COUNT 14.28 K/uL (4.8-10.8)
[2017-10-09 17:07] LABS: PTT PATIENT 22.6 SECONDS (21.0-31.0)
[2017-10-09 17:38] LABS: ALBUMIN 2.8 gm/dl (3.4-5.0); CALCIUM 8.3 mg/dl (8.5-10.1); CKMB 2.6 ng/ml (0.5-3.6); CREATININE 1.8 mg/dl (0.60-1.20); POTASSIUM 3.4 mmol/L (3.5-5.1); TOTAL PROTEIN 7.8 gm/dl (6.4-8.2)
[2017-10-09] MEDS ORDERED: POTASSIUM CHLORIDE 10 MEQ TABCR PO STA (18:47)
[2017-10-09] MEDS ORDERED: NON-FORMULARY MEDICATION (Home O2 Therapy (Oxygen) 4 LITER) SCH (19:00)
[2017-10-09] MEDS ORDERED: GLUCOSE 40% GEL 15 GM TUBE PO PRN (19:00)
[2017-10-09] MEDS ORDERED: GLUCOSE 10 TABS/TUBE PO PRN (19:00)
[2017-10-09] MEDS ORDERED: DEXTROSE 50% 50 ML SYR IV PRN (19:00)
[2017-10-09] MEDS ORDERED: GLUCAGON FOR INJ 1 MG VIAL SQ PRN (19:00)
[2017-10-09] MEDS ORDERED: CARBOHYDRATES FOR HYPOGLYCEMIA PO PRN (19:00)
[2017-10-09] MEDS ORDERED: CARVEDILOL 6.25 MG TAB PO ONE (20:15)
[2017-10-09] MEDS: IPRATROPIUM BROMIDE NEB SOLN 0.02% 2.5 ML VIAL INH SCH (20:26)
[2017-10-09] MEDS: LEVALBUTEROL 1.25MG/0.5ML NEB INH SCH (20:27)
[2017-10-09] MEDS ORDERED: IPRATROPIUM BROMIDE NEB SOLN 0.02% 2.5 ML VIAL INH PRN (20:30)
[2017-10-09] MEDS ORDERED: LEVALBUTEROL 1.25MG/0.5ML NEB INH PRN (20:30)
--- NOTE | 2017-10-09 20:57 | DIAGNOSTIC IMAGING REPORT ---
ABD/PELVIS NO IV OR ORAL CONT CT DOSE: 434.11 mGy.cm HISTORY: Flank pain flank pain TECHNIQUE: Multiaxial CT images of the abdomen and pelvis were performed without contrast. A dose lowering technique was utilized adhering to the principles of ALARA. COMPARISON STUDY: 04/16/2017 FINDINGS: Small parenchymal infiltrate posterior aspect right lung base. Left lung base is clear. Liver spleen and pancreas are uniform. Gallbladder is negative for distention of the perinephric infiltrative change and hydronephrosis of the right kidney previous described is resolved. There are no well-defined renal calcifications in either the right or left kidney. Operative changes consistent with a partial colectomy with a right lower quadrant colostomy is again noted. The rightstomal hernia and right anterior wall hernia is similar. Loops of bowel are contained at this location and appear to be nonobstructive. The intra-abdominal bowel pattern shows no obstructive change. There is perhaps a mild fecal impaction. There are bilateral fat-containing nonobstructing inguinal hernias. Bladder is midline. IMPRESSION: 1. Improved exam compared to the prior study with no current evidence for an obstructing urinary tract calculus. 2. Infiltrate right base somewhat increased in prominence from the prior study. 3. Right peristomal hernia containing several bowel loops is unchanged and nonobstructing. 4. Bilateral fat-containing inguinal hernias unchanged. 5. Mild rectal fecal impaction. 6. Operative changes consistent with a prior partial colectomy are unaltered. The above report was generated using voice recognition software. It may contain grammatical, syntax or spelling errors. Electronically signed by: Chilo Wall M.D. 10/09/2017 8:56 PM Dictated Date/Time: 10/09/2017 8:46 PM
[2017-10-09] MEDS ORDERED: LEVALBUTEROL/IPRATROPIUM NEB INH SCH (21:00)
[2017-10-09 21:03] VITALS: BP 108/48; PULSE 104; TEMP 37.3; O2SAT 97; BMI 29.2
[2017-10-09] MEDS ORDERED: PROCHLORPERAZINE INJ 5 MG in SYRINGE 4 ML IV PRN (21:15)
[2017-10-09 21:36] LABS: HEMATOCRIT 30.3 % (37-47); HEMOGLOBIN 9.7 g/dL (12.0-16.0)
[2017-10-09] MEDS ORDERED: INSULIN GLARGINE SOLOSTAR 100 UNITS/ML 3 ML PEN SC ONE (21:45)
[2017-10-09] MEDS ORDERED: FUROSEMIDE INJ 20 MG in SYRINGE 0 ML IV ONE (21:45)
[2017-10-09] MEDS: IPRATROPIUM BROMIDE HFA INHALER INH SCH (22:00)
[2017-10-09] MEDS: BUDESONIDE/FORMOTEROL FUMARATE 160/4.5 60 PUFFS/INHALER INH SCH (22:01)
[2017-10-09] MEDS: SULFASALAZINE 500 MG TABEC PO SCH (22:02)
[2017-10-09] MEDS: PANTOprazole SOD 40 MG TAB PO SCH (22:03)
[2017-10-09] MEDS: CEROVITE ADV FORMULA TAB PO SCH (22:03)
[2017-10-09] MEDS: INSULIN ASPART 100 UNITS/ML 3 ML PEN SC SCH (22:08)
--- NOTE | 2017-10-09 22:45 | History and Physical ---
History & Physical Date & Time of Service: October 09, 2017 at 20:06 Chief Complaint: Sob/Leg & Back Pain Primary Care Physician: Hakan Samano M.D. History of Present Illness Source: patient, family, clinic records, hospital records Pt is 77 y/o F with PMH COPD on 4L O2 continuous, diastolic heart failure, DM II , HTN, CKD IV, CAD, chronic anemia, Crohn's S/P colostomy and others listed below presented to ER with complaint of back pain. Patient received 2 units PRBC and MTU this morning for anemia. (Hgb: 7.8 on 07/06/17, 7.1 on 10/05/17). Patient states had sudden onset low back pain and bilateral hip and groin pain and pain to bilateral upper leg stopping at bilateral knees. Patient took 2 tablets of Jacinta back and body as well as 2 tablets of tramadol (patient not Rx tramadol). Patient does not feel that she was anymore short of breath than her baseline but states back pain was so bad she is unsure. EMS was called and she was reported that the patient was breathing heavily and that her lips were cyanotic upon their arrival, SPO2 80% on 4L. Patient states since arrival to ER pain has significantly subsided. Reports history of blood transfusion several years ago. Denies fever/chills, diaphoresis, N/V, increased stool to bag, melena , hematochezia, SUGN, dizziness, syncope, vision changes, neck pain, CP, orthopnea , palpitations, cough, sore throat, choking, otalgia, rhinorrhea, abdominal pain , paresthesias, weakness, extremity edema, rashes, urinary symptoms, weight loss. Patient follows with [facility]. History of echo: 01/2017, EF: 55-60%, grade 1 diastolic dysfunction. In ER patient afebrile, initially tachycardic 134 down to 105. Initially BP: 173/6 down to 124/53. Additionally 94% on 4L, now 96% on 4L. Patient given DuoNeb 2, Lasix 40 mg IV, Solu-Medrol 125 mg IV. Past Medical/Surgical History Medical Problems: (1) Anemia of chronic disease Status: Chronic (2) Asthma, allergic Status: Chronic (3) Benign hypertension Status: Chronic (4) Carotid stenosis, bilateral Permanent Comment: Carotid duplex 10/18/13- likely 70-99% stenosis both ICA Status: Chronic (5) Chronic obstructive lung disease Permanent Comment: Very Severe, on home O2 4L continuous Status: Chronic (6) CKD (chronic kidney disease), stage III Status: Chronic (7) Coronary artery disease Permanent Comment: S/p cath 2007- distal RCA 95% blockage corrected with balloon angioplasty, repeat cath June 2009 showed no significant obstructive disease. Status: Chronic (8) Crohn s disease Permanent Comment: s/p colostomy Status: Chronic (9) Diabetes mellitus type 2 Status: Chronic (10) Diastolic CHF Permanent Comment: echo 03/25/2015-EF = 60-65%; grade I diastolic dysfunction; mild mitral regurgitation Status: Chronic (11) Dyslipidemia Status: Chronic (12) Generalized anxiety disorder Status: Chronic (13) History of PSVT (paroxysmal supraventricular tachycardia) Status: Chronic (14) Hypothyroidism Status: Chronic (15) Osteoporosis Status: Chronic (16) Peristomal hernia Permanent Comment: [place]/p repair [place] 2009 [place] [facility] Status: Chronic (17) Small bowel obstruction Status: Resolved Surgical Problems: (1) Hernia repair Permanent Comment: 2009 and 2012 [place] [facility] Status: Chronic (2) History of carpal tunnel surgery of right wrist Status: Chronic (3) History of colostomy Permanent Comment: [facility] [place] Cro[place]'s disease, 1999 Status: Chronic (4) S/P appendectomy Status: Chronic (5) S/P cardiac cath Permanent Comment: 2007- Distal RCA 95% blockage corrected with balloon angioplasty. Repeat cath June 2009 showed no significant obstructive disease. Status: Chronic (6) S/P hysterectomy Status: Chronic (7) S/P tonsillectomy and adenoidectomy Status: Chronic Family History Diabetes mellitus FH: cancer Heart disease Social History Smoking Status: Former Smoker Smokeless Tobacco Use: No Alcohol Use: none Drug Use: none Marital Status: single Housing status: lives with family Occupational Status: retired Immunizations History of Influenza Vaccine: No History of Tetanus Vaccine?: Yes History of Pneumococcal: Yes History of Hepatitis B Vaccine: Yes Allergies Coded Allergies: Levofloxacin (Verified Allergy, Unknown, Arm itching after infusion finished, 10/09/17) Home Medications Scheduled Aspirin (Aspirin Ec), 81 MG PO DAILY Budesonide/Formoterol Fumarate (Symbicort 160/4.5 Inhaler), 2 PUFFS INH BID Carvedilol (Carvedilol), 6.25 MG PO BID Cholecalciferol (Vitamin D 1000 Unit), 1 TAB PO DAILY Citalopram Hydrobromide (Citalopram Hydrobromide), 10 MG PO DAILY Cyanocobalamin (Vitamin B-12), 1,000 MCG PO DAILY Ferrous Sulfate (Ferrous Sulfate), 325 MG PO DAILY Folic Acid (Folic Acid), 1 MG PO DAILY Home O2 Therapy (Oxygen), 4 LITER NA CONTINOUS Ipratropium Malin (Atrovent Hfa), 2 PUFFS INH QID Ipratropium-Albuterol (Duoneb), 1 TREATMENT INH Q4H Levothyroxine Sodium (Levothyroxine Sodium), 75 MCG PO DAILY Ocuvite Preservision (Ocuvite Preservision), 1 TAB PO BID Pantoprazole (Protonix), 40 MG PO BID Roflumilast (Daliresp), 1 TAB PO DAILY Rosuvastatin Calcium (Crestor), 20 MG PO DAILY Sitagliptin (Januvia), 25 MG PO DAILY Sulfasalazine (Sulfasalazine), 2 TAB PO TID Torsemide (Demadex), 20 MG PO DAILY Zinc (Zinc), 50 MG PO DAILY Miscellaneous Medications [Bipap] Review of Systems See HPI for pertinent positives & negatives. All other systems reviewed and were otherwise negative Physical Exam Vital Signs Date Time Temp Pulse Resp B/P (MAP) Pulse Ox O2 Delivery O2 Flow Rate FiO2 10/09/17 19:07 105 21 124/53 97 Nasal Cannula 4.0 10/09/17 17:08 116 21 96 10/09/17 17:00 134/54 10/09/17 16:38 119 22 96 10/09/17 16:30 120/50 10/09/17 16:08 125 19 94 10/09/17 16:00 133/57 10/09/17 15:49 135 10/09/17 15:30 144/71 10/09/17 15:10 36.7 134 20 173/65 94 Nasal Cannula 4.0 10/09/17 15:10 94 Nasal Cannula 4.0 10/09/17 15:10 94 Nasal Cannula 4.0 General Appearance: + pertinent finding (Chronic appearing, sitting upright in bed wearing oxygen via nasal canula, respirations 22) Head: normocephalic, atraumatic Eyes: normal inspection, sclerae normal ENT: pharynx normal, + pertinent finding (Mucous membranes moist) Neck: supple, trachea midline Respiratory/Chest: + pertinent finding (Decreased breath sounds throughout, no rales or wheezing noted, respirations 22, no accessory muscle use) Cardiovascular: normal peripheral pulses, + tachycardia (Rate 104 and regular) Abdomen/GI: normal bowel sounds, non tender, soft, + pertinent finding ( Positive colostomy-brown liquid stool in bag) Back: no CVA tenderness Extremities/Musculoskelatal: normal inspection, no calf tenderness, normal capillary refill, no pedal edema, non-tender Neurologic/Psych: alert, normal mood/affect, oriented x 3 Skin: normal color, warm/dry Diagnostics Laboratory Results Results Past 24 Hours Test 10/09/17 16:30 10/09/17 20:00 Range/Units White Blood Count 14.28 4.8-10.8 K/uL Red Blood Count 3.36 4.2-5.4 M/uL Hemoglobin 9.7 12.0-16.0 g/dL Hematocrit 31.2 37-47 % Mean Corpuscular Volume 92.9 80-100 fL Mean Corpuscular Hemoglobin 28.9 25-34 pg Mean Corpuscular Hemoglobin Concent 31.1 32-36 g/dl Platelet Count 140 130-400 K/uL Mean Platelet Volume 9.2 7.4-10.4 fL Neutrophils (%) (Auto) 94.8 % Lymphocytes (%) (Auto) 1.4 % Monocytes (%) (Auto) 3.2 % Eosinophils (%) (Auto) 0.3 % Basophils (%) (Auto) 0.1 % Neutrophils # (Auto) 13.54 1.4-6.5 K/uL Lymphocytes # (Auto) 0.20 1.2-3.4 K/uL Monocytes # (Auto) 0.45 0.11-0.59 K/uL Eosinophils # (Auto) 0.04 0-0.5 K/uL Basophils # (Auto) 0.02 0-0.2 K/uL RDW Standard Deviation 52.6 36.4-46.3 fL RDW Coefficient of Variation 15.5 11.5-14.5 % Immature Granulocyte % (Auto) 0.2 % Immature Granulocyte # (Auto) 0.03 0.00-0.02 K/uL Nucleated RBC Absolute Count (auto) 0.02 0-0 K/uL Nucleated Red Blood Cells % 0.1 % Prothrombin Time 11.0 9.0-12.0 SECONDS Prothromb Time International Ratio 1.0 0.9-1.1 Activated Partial Thromboplast Time 22.6 21.0-31.0 SECONDS Partial Thromboplastin Ratio 0.9 Sodium Level 140 136-145 mmol/L Potassium Level 3.4 3.5-5.1 mmol/L Chloride Level 99 98-107 mmol/L Carbon Dioxide Level 37 21-32 mmol/L Anion Gap 4.0 3-11 mmol/L Blood Urea Nitrogen 16 7-18 mg/dl Creatinine 1.80 0.60-1.20 mg/dl Est Creatinine Clear Calc Drug Dose 25.2 ml/min Estimated GFR () 30.5 Estimated GFR (Non- 26.3 BUN/Creatinine Ratio 8.8 10-20 Random Glucose 134 70-99 mg/dl Calcium Level 8.3 8.5-10.1 mg/dl Magnesium Level 2.2 1.8-2.4 mg/dl Total Bilirubin 0.6 0.2-1 mg/dl Direct Bilirubin 0.1 0-0.2 mg/dl Aspartate Amino Transf (AST/SGOT) 18 15-37 U/L Alanine Aminotransferase (ALT/SGPT) 10 12-78 U/L Alkaline Phosphatase 81 45-117 U/L Lactate Dehydrogenase 286 84-246 U/L Total Creatine Kinase 106 26-192 U/L Creatine Kinase MB 2.6 0.5-3.6 ng/ml Creatine Kinase MB Ratio 2.5 0-3.0 Troponin I 0.075 0-0.045 ng/ml Pro-B-Type Natriuretic Peptide 987 0-1800 pg/ml Total Protein 7.8 6.4-8.2 gm/dl Albumin 2.8 3.4-5.0 gm/dl Lipase 156 73-393 U/L Thyroid Stimulating Hormone (TSH) 1.420 0.300-4.500 uIu/ml Microbiology Results 10/09/17 Blood Culture, Received Pending 10/09/17 Blood Culture, Received Pending 10/09/17 Urine Culture, Received Pending Diagnostic Radiology CXR: IMPRESSION: 1. Cardiomegaly with possible volume overload/congestive change. No nishant pulmonary edema. 2. Heterogeneity of lung parenchyma could suggest underlying emphysema. EKG EKG: Sinus tachycardia, rate 128, QTc 584 Read by resource teacher: Sinus tachycardia Nonspecific ST abnormality Abnormal ECG When compared with ECG of 04-JAN-2017 16:59, ST now depressed in Lateral leads Confirmed by JUAN MOSS ([id number]) on 10/09/2017 4:44:53 PM Impression Assessment and Plan Pt is 77 y/o F with PMH COPD on 4L O2 continuous, diastolic heart failure, DM II , HTN, CKD IV, CAD, chronic anemia, Crohn's S/P colostomy and others listed below presented to ER with complaint of back pain. Patient received 2 units PRBC and MTU this morning for anemia. (Hgb: 7.8 on 07/06/17, 7.1 on 10/05/17). Reported pt with O2 sat 80% on 4L oxygen upon EMS arrival ACUTE ON CHRONIC RESPIRATORY FAILURE Possible multifactorial: fluid overload secondary to PRBCs today with hx diastolic HF, COPD exacerbation, Transfusion reaction. In ER Pt initially tachycardic 134 down to 105, BP: 173/65 down to 124/53, afebrile, 94% on chronic 4L oxygen up to 96% on 4L oxygen. WBC: 14. normal coags. CXR:1. Cardiomegaly with possible volume overload/congestive change. No nishant pulmonary edema. 2. Heterogeneity of lung parenchyma could suggest underlying emphysema. In ER Pt given duoneb x2, lasix 40mg IV, solumedrol 125mg IV -ABG ordered -continue 4L supplemental oxygen -nebs -Continue torsemide -monitor I&Os BACK PAIN/POSSIBLE TRANSFUSION REACTION Patient developed sudden onset pain after transfusions. Pt took 2 tabs Jacinta back & body (500mg ASA +32.5mg caffeine per tablet) and took 2 tramadol for back pain. -monitor CBC -CT abd/pelvis r/o obstruction/stone HYPOKALEMIA K: 3.4 -Replace & monitor Hx CAD ELEVATED TROPONIN Denies CP. Troponin: 0.075 -continue carvedilol, torsemide, ASA -trend troponin -Repeat EKG HTN initially 173/65 down to 124/53 after 40mg IV lasix -continue carvedilol with holding parameters -continue to monitor CHRONIC ANEMIA Patient with chronic anemia and recent trending down hemoglobins. Hgb 7.8 on 07/06/17, 7.1 on 10/05/17. Had 2 units PRBCs today secondary to worsening anemia. In ER carlee Hgb: 9.7 -Monitor H&H -Continue folic acid, iron, vitamin B12 DM II H A1c 6.0 on 07/06/17 -Hold Januvia -Lantus, NovoLog sliding scale per protocol CKD IV Cr: 1.8 (baseline approximately 1.7-1.9) -Monitor renal functions -Avoid nephrotoxic agents and possible HYPOTHYROIDISM TSH: 1.4 -Continue levothyroxine CROHN'S DISEASE s/p colostomy. Denies abdominal pain, increased stool in bag or hematochezia -Abdomen pelvis CT ordered ANXIETY -continue citalopram DVT Prophylaxis -Per attending Disposition admit tele Full Code as per discussion with pt Follows with Dr Samano for routine care Pt was seen with Dr Barrett. See addendum for further assessment and plan. Resuscitation Status Full code VTE Prophylaxis Will order VTE Prophylaxis: Yes Additional Copies To Hakan Samano M.D. Assessment/Plan IM ATTENDING : Patient seen and examined. History obtained from patient and records. Preceding documentation by Ms. Betzy Jerez PA-C, reviewed. FINAL ASSESSMENT AND PLAN as follows: 1. Shortness of breath multifactorial : [id number] hypoxemic respiratory failure (hx COPD) secondary to fluid overload from recent outpatient blood transfusion hx chronic diastolic heart failure, EF 60%. Atypical pneumonia, possible sepsis. 2. Hypertension, slightly elevated. 3. Chronic renal insufficiency, creatinine at baseline. 4. Chronic anemia secondary to chronic kidney disease improved hemoglobin posttransfusion. 5. DM2, on oral meds, well-controlled, as of recent HgA1c of 6 last July 2017. 6. History of IBD status post surgery. 7. hx CAD/PVD as per records 8. past tobacco abuse. PCU. Supplemental O2 baseline ABG. IV Diuretic Rx. nebs prn Continue home oral diuretic in AM morning once breathing improved. Doxycycline for atypical pneumonia. ISS BG goal 140-180, may need basal insulin. DVT prophylaxis Heparin SQ PT/OT evaluation. FULL CODE. Patient's daughter requesting for updates from providers, Miss Vishal Hampton at [phone]. Alternative contact is Miss Stanford Linda at [phone].
[2017-10-09] MEDS ORDERED: LORAZEPAM 0.5 MG TAB PO ONE (23:00)
[2017-10-09 23:11] VITALS: PULSE 84; O2SAT 94
--- NOTE | 2017-10-09 23:28 | EMERGENCY ROOM VISIT NOTE ---
History Report prepared by Azra: Prakash Carrillo Under the Supervision of: Dr. Luis Velez M.D. First contact with patient: 15:37 Chief Complaint: SHORTNESS OF BREATH Stated Complaint: SOB/LEG & BACK PAIN Nursing Triage Summary: Pt. presents via ALS transport from home. Pt. was at cancer center this morning and had blood transfusion (2 units). On way home, about 1300, she developed throbbing lower back and bilateral leg and groin pain. She rates the pain as 10/10. Patient reports that she took two jacinta back and body and two tramadol before calling EMS. Patient continues to report that her pain is a 10/10. Patient also states that she is having worsening of her breathing and relates it to her pain. She reports that she did not take any of her regular medications or do her home breathing treatments today. EMS reports that the patient was breathing heavily and that her lips were cyanotic upon their arrival, SPO2 80% on 4L. Pt. has history of COPD. History of Present Illness The patient is a 77 year old female with a history of COPD who presents to the Emergency Room via ALS with complaints of worsening shortness of breath starting around 3 hours ago. She states that she was at the cancer center this morning and was given 2 units of blood there because she was anemic at 7.1. 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 The patient is not on dialysis. However, the patient then started having lower back and bilateral leg and groin pain on the way home from the cancer center. The patient notes that the leg pain came on before the back pain. She described her pain as throbbing, and rated her pain as a 10 out of 10 in severity. She notes that she called EMS after taking 2 Jacinta Back and Body, as well as 2 Tramadol. The patient says that she still has the pain, and adds that she feels short of breath with the pain. The patient now rates her pain as a 5 out of 10 in severity in the room. EMS noted that the patient's lips were cyanotic when they arrived, and her oxygen saturation was 80% on 4 liters of oxygen. The patient adds that she did not take any of her regular medications today, and did not use her breathing treatments either because of the blood transfusion today. She does take a water pill normally. She notes that she was not having any other breathing difficulties recently other than today. Pt denies LOC, headache, fevers, chills , diaphoresis, visual changes, neck pain, chest pain, nausea, vomiting, abdominal pain, melena, hematochezia, urinary symptoms, numbness, weakness, lymphadenopathy, rash, or other complaints. Source of History: patient, family, nursing staff Onset: 3 hours ago Position: other (global) Symptom Intensity: 80% o2 saturation Quality: other (shortness of breath) Timing: worsening Associated Symptoms: + back pain (low) Note: Associated symptoms: Lips cyanotic. Groin pain, bilateral leg pain. Review of Systems See HPI for pertinent positives and negatives. A total of ten systems were reviewed and were otherwise negative. Past Medical & Surgical Medical Problems: (1) Acute CHF (congestive heart failure) (2) Anemia of chronic disease (3) Asthma, allergic (4) Benign hypertension (5) Carotid stenosis, bilateral (6) Chronic obstructive lung disease (7) CKD (chronic kidney disease), stage III (8) COPD exacerbation (9) COPD exacerbation (10) Coronary artery disease (11) Crohn s disease (12) Diabetes mellitus type 2 (13) Diastolic CHF (14) Dyslipidemia (15) Encounter for removal of vascular catheter (16) Generalized anxiety disorder (17) History of PSVT (paroxysmal supraventricular tachycardia) (18) Hypothyroidism (19) Osteoporosis (20) Peristomal hernia (21) Respiratory failure, [id number] (22) Small bowel obstruction Surgical Problems: (1) Hernia repair (2) History of carpal tunnel surgery of right wrist (3) History of colostomy (4) S/P appendectomy (5) S/P cardiac cath (6) S/P hysterectomy (7) S/P tonsillectomy and adenoidectomy Family History Diabetes mellitus FH: cancer Heart disease Social History Smoking Status: Former Smoker Alcohol Use: none Drug Use: none Marital Status: single Housing Status: lives with family Occupation Status: retired Current/Historical Medications Scheduled Aspirin (Aspirin Ec), 81 MG PO DAILY Budesonide/Formoterol Fumarate (Symbicort 160/4.5 Inhaler), 2 PUFFS INH BID Carvedilol (Carvedilol), 6.25 MG PO BID Cholecalciferol (Vitamin D 1000 Unit), 1 TAB PO DAILY Citalopram Hydrobromide (Citalopram Hydrobromide), 10 MG PO DAILY Cyanocobalamin (Vitamin B-12), 1,000 MCG PO DAILY Ferrous Sulfate (Ferrous Sulfate), 325 MG PO DAILY Folic Acid (Folic Acid), 1 MG PO DAILY Home O2 Therapy (Oxygen), 4 LITER NA CONTINOUS Ipratropium [place] (Atrovent Hfa), 2 PUFFS INH QID Ipratropium-Albuterol (Duoneb), 1 TREATMENT INH Q4H Levothyroxine Sodium (Levothyroxine Sodium), 75 MCG PO DAILY Ocuvite Preservision (Ocuvite Preservision), 1 TAB PO BID Pantoprazole (Protonix), 40 MG PO BID Roflumilast (Daliresp), 1 TAB PO DAILY Rosuvastatin Calcium (Crestor), 20 MG PO DAILY Sitagliptin (Januvia), 25 MG PO DAILY Sulfasalazine (Sulfasalazine), 2 TAB PO TID Torsemide (Demadex), 20 MG PO DAILY Zinc (Zinc), 50 MG PO DAILY Miscellaneous Medications [Bipap] Allergies Coded Allergies: Levofloxacin (Verified Allergy, Unknown, Arm itching after infusion finished, 10/09/17) Physical Exam Vital Signs Date Time Temp Pulse Resp B/P (MAP) Pulse Ox O2 Delivery O2 Flow Rate FiO2 10/09/17 20:28 36.8 102 23 120/60 97 Nasal Cannula 4.0 10/09/17 19:07 105 21 124/53 97 Nasal Cannula 4.0 10/09/17 17:08 116 21 96 10/09/17 17:00 134/54 10/09/17 16:38 119 22 96 10/09/17 16:30 120/50 10/09/17 16:08 125 19 94 10/09/17 16:00 133/57 10/09/17 15:49 135 10/09/17 15:30 144/71 10/09/17 15:10 36.7 134 20 173/65 94 Nasal Cannula 4.0 10/09/17 15:10 94 Nasal Cannula 4.0 10/09/17 15:10 94 Nasal Cannula 4.0 Physical Exam GENERAL: Awake, alert, pale and mildly dyspneic appearing, in no distress HENT: Normocephalic, atraumatic. Oropharynx unremarkable. EYES: Normal conjunctiva. Sclera non-icteric. NECK: Supple. No nuchal rigidity. FROM. No masses. RESPIRATORY: Scattered rhonchi bilaterally. Mildly dyspneic appearing. CARDIAC: Tachycardic rate. Normal rhythm. No murmurs. No rubs. Extremities warm and well perfused. Pulses equal. No JVD. GI: Soft, non-distended. Colostomy right lower abdomen. No tenderness to palpation. No rebound or guarding. No masses. RECTAL: Deferred. MUSCULOSKELETAL: Atraumatic. Chest examination reveals no tenderness. The back is symmetrical on inspection without obvious abnormality. There is no CVA tenderness to palpation. No joint edema. LOWER EXTREMITIES: Calves are equal size bilaterally and non-tender. No edema. No discoloration. NEURO: Normal sensorium. No sensory or motor deficits noted. SKIN: No rash or jaundice noted. Medical Decision & Procedures ER Provider Diagnostic Interpretation: X-ray: Per my interpretation, radiologist review. CHEST ONE VIEW PORTABLE CLINICAL HISTORY: 77 years-old Female presenting with EVALUATE WEAKNESS. TECHNIQUE: Portable upright AP view of the chest was obtained. COMPARISON: 01/04/2017. FINDINGS: Atherosclerosis of aortic arch. Cardiac silhouette enlarged. Vascular prominence with prominent lung markings. Added density at the lung bases suggested. No focal opacity. No large effusion or pneumothorax. Osseous structures normal. Upper abdomen normal. IMPRESSION: 1. Cardiomegaly with possible volume overload/congestive change. No nishant pulmonary edema. 2. Heterogeneity of lung parenchyma could suggest underlying emphysema. Electronically signed by: Shaquille Zhu M.D. 10/09/2017 3:53 PM Dictated Date/Time: 10/09/2017 3:52 PM Laboratory Results 10/09/17 16:30 Red Blood Count 3.36, Mean Corpuscular Volume 92.9, Mean Corpuscular Hemoglobin 28.9, Mean Corpuscular Hemoglobin Concent 31.1, Mean Platelet Volume 9.2, Neutrophils (%) (Auto) 94.8, Lymphocytes (%) (Auto) 1.4, Monocytes (%) (Auto) 3.2, Eosinophils (%) (Auto) 0.3, Basophils (%) (Auto) 0.1, Neutrophils # (Auto) 13.54, Lymphocytes # (Auto) 0.20, Monocytes # (Auto) 0.45, Eosinophils # (Auto) 0.04, Basophils # (Auto) 0.02 10/09/17 16:30 Test 10/09/17 16:30 White Blood Count 14.28 K/uL (4.8-10.8) Red Blood Count 3.36 M/uL (4.2-5.4) Hemoglobin 9.7 g/dL (12.0-16.0) Hematocrit 31.2 % (37-47) Mean Corpuscular Volume 92.9 fL (80-100) Mean Corpuscular Hemoglobin 28.9 pg (25-34) Mean Corpuscular Hemoglobin Concent 31.1 g/dl (32-36) Platelet Count 140 K/uL (130-400) Mean Platelet Volume 9.2 fL (7.4-10.4) Neutrophils (%) (Auto) 94.8 % Lymphocytes (%) (Auto) 1.4 % Monocytes (%) (Auto) 3.2 % Eosinophils (%) (Auto) 0.3 % Basophils (%) (Auto) 0.1 % Neutrophils # (Auto) 13.54 K/uL (1.4-6.5) Lymphocytes # (Auto) 0.20 K/uL (1.2-3.4) Monocytes # (Auto) 0.45 K/uL (0.11-0.59) Eosinophils # (Auto) 0.04 K/uL (0-0.5) Basophils # (Auto) 0.02 K/uL (0-0.2) RDW Standard Deviation 52.6 fL (36.4-46.3) RDW Coefficient of Variation 15.5 % (11.5-14.5) Immature Granulocyte % (Auto) 0.2 % Immature Granulocyte # (Auto) 0.03 K/uL (0.00-0.02) Nucleated RBC Absolute Count (auto) 0.02 K/uL (0-0) Nucleated Red Blood Cells % 0.1 % Prothrombin Time 11.0 SECONDS (9.0-12.0) Prothromb Time International Ratio 1.0 (0.9-1.1) Activated Partial Thromboplast Time 22.6 SECONDS (21.0-31.0) Partial Thromboplastin Ratio 0.9 Anion Gap 4.0 mmol/L (3-11) Est Creatinine Clear Calc Drug Dose 25.2 ml/min Estimated GFR () 30.5 Estimated GFR (Non- 26.3 BUN/Creatinine Ratio 8.8 (10-20) Calcium Level 8.3 mg/dl (8.5-10.1) Magnesium Level 2.2 mg/dl (1.8-2.4) Total Bilirubin 0.6 mg/dl (0.2-1) Direct Bilirubin 0.1 mg/dl (0-0.2) Aspartate Amino Transf (AST/SGOT) 18 U/L (15-37) Alanine Aminotransferase (ALT/SGPT) 10 U/L (12-78) Alkaline Phosphatase 81 U/L (45-117) Lactate Dehydrogenase 286 U/L (84-246) Total Creatine Kinase 106 U/L (26-192) Creatine Kinase MB 2.6 ng/ml (0.5-3.6) Creatine Kinase MB Ratio 2.5 (0-3.0) Pro-B-Type Natriuretic Peptide 987 pg/ml (0-1800) Total Protein 7.8 gm/dl (6.4-8.2) Albumin 2.8 gm/dl (3.4-5.0) Lipase 156 U/L (73-393) Thyroid Stimulating Hormone (TSH) 1.420 uIu/ml (0.300-4.500) Laboratory results reviewed by me Medications Administered Medications (Trade) Dose Ordered Sig/Gilbert Route Start Time Stop Time Status Last Admin Dose Admin Furosemide (Lasix Inj) 40 mg NOW STAT IV 10/09/17 16:01 10/09/17 16:03 DC 10/09/17 16:44 40 MG Albuterol/ Ipratropium (Duoneb) 3 ml NOW STAT INH 10/09/17 16:01 10/09/17 16:03 DC 10/09/17 16:44 3 ML Methylprednisolone Sodium Succinate (Solu-Medrol IV) 125 mg NOW STAT IV 10/09/17 16:01 10/09/17 16:03 DC 10/09/17 16:44 125 MG Albuterol/ Ipratropium (Duoneb) 3 ml NOW STAT INH 10/09/17 18:31 10/09/17 18:32 DC 10/09/17 18:56 3 ML Potassium Chloride (Klor-Con M10) 40 meq NOW STAT PO 10/09/17 18:47 10/09/17 19:26 DC 10/09/17 20:11 40 MEQ Carvedilol (Coreg Tab) 6.25 mg 2015 ONCE PO 10/09/17 20:15 10/09/17 20:16 DC 10/09/17 22:00 6.25 MG ECG Per My Interpretation Indication: SOB/dyspnea Rate (beats per minute): 128 Rhythm: other (accelerated junctional rhythm) Findings: no ectopy, other (nonspecific ST) ED Course 1600: The patient was evaluated in room C6. A complete history and physical exam was performed. 1601: Solu-Medrol IV 125 mg, DuoNeb 3 ml INH, Lasix Inj 40 mg IV. 1733: I reevaluated and updated the patient. 1831: DuoNeb 3 ml INH. 1840: Upon reexamination, the patient was resting. I discussed the test results and treatment plan with her. The patient will be evaluated for further management. 1841: Discussed the patient's case with Dr. Brandyn Mason [facility]. The patient will be evaluated for further treatment and disposition. Medical Decision Prior records/ancillary studies reviewed and summarized above. Nursing notes reviewed and agree them. Additional history obtained from family. The patient's history was concerning for respiratory issues and diffuse lower extremity pain and back pain status post blood transfusion. Differential diagnosis: Etiologies such as fluid overload, transfusion reaction, metabolic, infection, hypo/hyperglycemia, electrolyte abnormalities, cardiac sources, intracerebral event, toxicologic, neurologic, as well as others were entertained. Physical examination: As above. ER treatment provided: IV Lock DuoNeb 2 IV Solu-Medrol IV On reassessment the patient felt better. Diagnostics interpretation by me: ECG: No acute ischemic The labs revealed anemia on CBC. Chemistry panel reveals some mild renal insufficiency. Troponin mildly elevated. Imaging studies: Chest x-ray as above. It is difficult to discern if the patient had a transfusion reaction, COPD exacerbation, fluid overload, or a combination thereof. She was treated as above and felt much better. She did take analgesia at home which helped with the extremity discomfort and bone pain. Further management in the hospital will be necessary. Consultation: A consultation was placed with the hospitalist. The case was discussed and diagnostics were reviewed. The patient was evaluated in the ER for further treatment. Medication Reconcilliation Current Medication List: was personally reviewed by me Blood Pressure Screening Patient's blood pressure: Normal blood pressure Consults Time Called: 1837 Consulting Physician: Dr. Brandyn Mason [employer] Returned Call: 1840 Discussed the patient's case with Dr. Brandyn Mason [employer] [employer]. The patient will be evaluated for further treatment and disposition. Impression Primary Impression: Hypoxia Additional Impressions: COPD (chronic obstructive pulmonary disease) Bilateral lower extremity pain Possible transfusion reaction Elevated troponin Scribe Attestation The scribe's documentation has been prepared under my direction and personally reviewed by me in its entirety. I confirm that the note above accurately reflects all work, treatment, procedures, and medical decision making performed by me. Departure Information Dispostion Being Evaluated By Hospitalist Referrals Hakan Samano M.D. (PCP) Patient Instructions My [facility] Problem Qualifiers
[2017-10-09 23:35] VITALS: BP 108/57; PULSE 93; TEMP 37.1; O2SAT 94
[2017-10-10] VITALS (13 sets, daily range): BP systolic 102–122; BP diastolic 51–64; PULSE 78–108; TEMP 36.6–37.6; O2SAT 92–98; Ht 157.5 cm; Wt 72.9 kg
[2017-10-10] MEDS: LEVALBUTEROL 1.25MG/0.5ML NEB INH SCH ×4 (01:58→19:01)
[2017-10-10] MEDS: IPRATROPIUM BROMIDE NEB SOLN 0.02% 2.5 ML VIAL INH SCH ×4 (01:58→19:01)
[2017-10-10] MEDS ORDERED: DOXYCYCLINE IV 100 MG in DEXTROSE 5% 100ML 100 ML IV ONE (03:30)
[2017-10-10] MEDS: LEVOTHYROXINE 75 MCG TAB PO SCH (06:10)
[2017-10-10] MEDS: HEPARIN SOD 5000 UNIT/0.5 ML CARP SQ SCH ×3 (06:11→21:35)
[2017-10-10] MEDS: INSULIN ASPART 100 UNITS/ML 3 ML PEN SC SCH ×4 (07:00→21:00)
[2017-10-10 07:22] LABS: BASO % 0.1 %; BASO ABS # 0.01 K/uL (0-0.2); HEMATOCRIT 29.5 % (37-47); HEMOGLOBIN 9.2 g/dL (12.0-16.0); IG# 0.05 K/uL (0.00-0.02); LYMPH % 4.3 %; LYMPH ABS # 0.58 K/uL (1.2-3.4); MEAN CELL VOLUME 91.9 fL (80-100); MEAN CORPUSCULAR HEMOGLOBIN 28.7 pg (25-34); MEAN CORPUSCULAR HGB CONC 31.2 g/dl (32-36); MEAN PLATELET VOLUME 8.9 fL (7.4-10.4); MONO % 3.1 %; MONO ABS # 0.42 K/uL (0.11-0.59); NEUT % 92.1 %; NEUT ABS # 12.37 K/uL (1.4-6.5); PLATELET COUNT 147 K/uL (130-400); RED CELL DISTRIBUTION WIDTH CV 15.8 % (11.5-14.5); WHITE BLOOD COUNT 13.43 K/uL (4.8-10.8)
[2017-10-10 08:02] LABS: CALCIUM 8.5 mg/dl (8.5-10.1); CREATININE 1.92 mg/dl (0.60-1.20); POTASSIUM 4.1 mmol/L (3.5-5.1)
--- NOTE | 2017-10-10 08:17 | HISTORY & PHYSICAL EXAMINATION ---
DATE OF ADMISSION: 10/09/2017 IM ATTENDING : Patient seen and examined. History obtained from patient and records. Preceding documentation by Ms. Betzy Jerez PA-C, reviewed. FINAL ASSESSMENT AND PLAN as follows: 1. Shortness of breath multifactorial : [id number] hypoxemic respiratory failure (hx COPD) secondary to fluid overload from recent outpatient blood transfusion hx chronic diastolic heart failure, EF 60%. Atypical pneumonia, possible sepsis. 2. Hypertension, slightly elevated. 3. Chronic renal insufficiency, creatinine at baseline. 4. Chronic anemia secondary to chronic kidney disease improved hemoglobin posttransfusion. 5. DM2, on oral meds, well-controlled, as of recent HgA1c of 6 last July 2017. 6. History of IBD status post surgery. 7. hx CAD/PVD as per records 8. past tobacco abuse. PCU. Supplemental O2 baseline ABG. IV Diuretic Rx. nebs prn Continue home oral diuretic in AM morning once breathing improved. Doxycycline for atypical pneumonia. ISS BG goal 140-180, may need basal insulin. DVT prophylaxis Heparin SQ PT/OT evaluation. FULL CODE. Patient's daughter requesting for updates from providers, Miss Vishal Hampton at [phone]. Alternative contact is Miss Stanford Linda at [phone]. MTDD
[2017-10-10] MEDS: FERROUS SULFATE 325 MG TAB PO SCH (08:25)
[2017-10-10] MEDS: TORSEMIDE 20 MG TAB PO SCH (08:25)
[2017-10-10] MEDS: ASPIRIN 81 MG ECTAB PO SCH (08:26)
[2017-10-10] MEDS: ROFLUMILAST 500 MCG TAB PO SCH (08:26)
[2017-10-10] MEDS: PANTOprazole SOD 40 MG TAB PO SCH ×2 (08:26→20:09)
[2017-10-10] MEDS: ROSUVASTATIN CALCIUM 20 MG TAB PO SCH (08:26)
[2017-10-10] MEDS: CARVEDILOL 6.25 MG TAB PO SCH ×2 (08:26→20:08)
[2017-10-10] MEDS: CHOLECALCIFEROL 400 INTER.UNIT TAB PO SCH (08:26)
[2017-10-10] MEDS: ZINC SULFATE 220 MG CAP PO SCH (08:26)
[2017-10-10] MEDS: CYANOCOBALAMIN 500 MCG TAB (VIT B-12) PO SCH (08:26)
[2017-10-10] MEDS: CITALOPRAM 20 MG TAB PO SCH (08:27)
[2017-10-10] MEDS: CEROVITE ADV FORMULA TAB PO SCH ×2 (08:28→20:09)
[2017-10-10] MEDS: IPRATROPIUM BROMIDE HFA INHALER INH SCH ×4 (08:29→20:07)
[2017-10-10] MEDS: SULFASALAZINE 500 MG TABEC PO SCH ×3 (08:29→20:12)
[2017-10-10] MEDS: BUDESONIDE/FORMOTEROL FUMARATE 160/4.5 60 PUFFS/INHALER INH SCH ×2 (08:29→20:07)
[2017-10-10] MEDS ORDERED: TORSEMIDE 20 MG TAB PO SCH (09:00)
[2017-10-10] MEDS ORDERED: SITAGLIPTIN 25 MG TAB PO SCH (09:00)
[2017-10-10] MEDS ORDERED: ASPIRIN 81 MG ECTAB PO SCH (09:00)
--- NOTE | 2017-10-10 09:53 | Progress Note ---
Subjective Date of Service: October 10, 2017. Subjective Pt evaluation today including: conversation w/ patient, conversation w/ family , physical exam, chart review, lab review, review of studies, review of inpatient medication list Saw/examined the patient in room 242 She's laying comfortably with supplemental oxygen via nasal cannula States she presented to the ER with chest pressure and shortness of breath as well as pain in the lower extremities Pain has since subsided, breathing is fine when laying Problem List Medical Problems: (1) Anemia Status: Acute (2) Bilateral lower extremity pain Status: Acute (3) Carbon dioxide narcosis Status: Acute (4) Cervical strain Status: Acute (5) COPD (chronic obstructive pulmonary disease) Status: Acute (6) Dizziness Status: Acute (7) Elevated troponin Status: Acute (8) Fall Status: Acute (9) Fall Status: Acute (10) Fracture of left distal radius Status: Acute (11) Head injury Status: Acute (12) Hypoxia Status: Acute (13) Neck pain Status: Acute (14) Pneumonia Status: Acute (15) Renal insufficiency Status: Acute (16) Respiratory acidosis Status: Acute (17) Right ureteral stone Status: Acute (18) Shortness of breath Status: Acute Review of Systems Constitutional: No fever, No chills, No weakness Respiratory: + shortness of breath, No cough, No sputum, No wheezing, No dyspnea on exertion Cardiac: No chest pain (improved), No edema, No palpitations Abdomen: No pain, No nausea, No vomiting, No diarrhea Musculoskeletal: + joint pain (improving) Medications Current Inpatient Medications Medications (Trade) Dose Ordered Sig/Gilbert Route Start Time Stop Time Status Last Admin Dose Admin Budesonide/ Formoterol Fumarate (Symbicort 160/ 4.5 Inh) 2 puffs BID INH 10/09/17 21:00 11/08/17 20:59 10/10/17 08:29 2 PUFFS Carvedilol (Coreg Tab) 6.25 mg BID PO 10/10/17 09:00 11/09/17 08:59 10/10/17 08:26 6.25 MG Cholecalciferol (Vitamin D Tab) 400 inter.unit DAILY PO 10/10/17 09:00 11/09/17 08:59 10/10/17 08:26 400 INTER.UNIT Cyanocobalamin (Vitamin B-12 Tab) 1,000 mcg DAILY PO 10/10/17 09:00 11/09/17 08:59 10/10/17 08:26 1,000 MCG Ferrous Sulfate (Feosol Tab) 325 mg DAILY PO 10/10/17 09:00 11/09/17 08:59 10/10/17 08:25 325 MG Folic Acid (Folvite Tab) 1 mg DAILY PO 10/10/17 09:00 11/09/17 08:59 10/10/17 08:28 1 MG Ipratropium [place] (Atrovent Hfa Inhaler) 2 puffs QID INH 10/09/17 21:00 11/08/17 20:59 10/10/17 08:29 2 PUFFS Levothyroxine Sodium (Synthroid Tab) 75 mcg DAILYBB PO 10/10/17 06:00 11/09/17 06:59 10/10/17 06:10 75 MCG Multivitamins/ Minerals (Multivitamin W/ Minerals Tab) 1 tab BID PO 10/09/17 21:00 11/08/17 20:59 10/10/17 08:28 1 TAB Pantoprazole Sodium (Protonix Tab) 40 mg BID PO 10/09/17 21:00 11/08/17 20:59 10/10/17 08:26 40 MG Roflumilast (Daliresp Tab) 500 mcg DAILY PO 10/10/17 09:00 11/09/17 08:59 10/10/17 08:26 500 MCG Rosuvastatin Calcium (Crestor Tab) 20 mg DAILY PO 10/10/17 09:00 11/09/17 08:59 10/10/17 08:26 20 MG Sulfasalazine (Azulfidine Delayed Rel Tab) 1,000 mg TID PO 10/09/17 21:00 11/08/17 20:59 10/10/17 08:29 1,000 MG Citalopram Hydrobromide (celeXA TAB) 10 mg DAILY PO 10/10/17 09:00 11/09/17 08:59 10/10/17 08:27 10 MG Zinc Sulfate (Zinc Sulfate Cap) 220 mg DAILY PO 10/10/17 09:00 11/09/17 08:59 10/10/17 08:26 220 MG Insulin Aspart (novoLOG ASPART) SLIDING SCALE If C... ACHS SC 10/09/17 21:00 11/08/17 20:59 10/09/17 22:08 2 UNITS Glucose (Glucose 40% Gel) 15-30 GRAMS 15 GRAMS... UD PRN PO 10/09/17 19:00 11/08/17 18:59 Glucose (Glucose Chew Tab) 4-8 Tablets 4 Tabl... UD PRN PO 10/09/17 19:00 11/08/17 18:59 Dextrose (Dextrose 50% 50ML Syringe) 25-50ML 25ML FOR ... UD PRN IV 10/09/17 19:00 11/08/17 18:59 Glucagon (Glucagon Inj) 1 mg UD PRN SQ 10/09/17 19:00 11/08/17 18:59 Carbohydrates (Carbohydrates For Hypoglycemia) 15-30 GRAMS 15 grams if BSG 54-69... UD PRN PO 10/09/17 19:00 11/08/17 18:59 Ipratropium [place] (Atrovent 0.02% 0.5MG/2.5ML Neb) 0.5 mg Q6R INH 10/09/17 21:00 11/08/17 20:59 10/10/17 07:00 0.5 MG Levalbuterol (Xopenex 1.25MG/ 0.5ML Neb) 1.25 mg Q6R INH 10/09/17 21:00 11/08/17 20:59 10/10/17 07:01 1.25 MG Ipratropium [place] (Atrovent 0.02% 0.5MG/2.5ML Neb) 0.5 mg Q2R PRN INH 10/09/17 20:30 11/08/17 20:29 Levalbuterol (Xopenex 1.25MG/ 0.5ML Neb) 1.25 mg Q2R PRN INH 10/09/17 20:30 11/08/17 20:29 Tramadol HCl (Ultram Tab) not relieved by tylenol @ Q6H PRN PO 10/09/17 21:15 11/08/17 21:14 Prochlorperazine Edisylate 5 mg/ Syringe 5 ml @ 5 mls/min Q6H PRN IV 10/09/17 21:15 11/08/17 21:14 Hydromorphone HCl (Dilaudid Inj) 0.5 mg Q3H PRN IV 10/09/17 21:15 10/23/17 21:14 Torsemide (Demadex Tab) 20 mg QAM PO 10/10/17 09:00 11/09/17 08:59 10/10/17 08:25 20 MG Aspirin (Ecotrin Tab) 81 mg QAM PO 10/10/17 09:00 11/09/17 08:59 10/10/17 08:26 81 MG Insulin Glargine (Lantus Solostar Pen) 5 units HS SC 10/10/17 21:00 11/09/17 20:59 Heparin Sodium (Porcine) (Heparin Sq 5000 Unit/0.5ml) 5,000 unit Q8 SQ 10/10/17 06:00 11/09/17 05:59 10/10/17 06:11 5,000 UNIT Doxycycline Hyclate 100 mg/ Dextrose 110 ml @ 50 mls/hr Q12H IV 10/10/17 18:00 10/17/17 17:59 Objective Vital Signs Date Time Temp Pulse Resp B/P (MAP) Pulse Ox O2 Delivery O2 Flow Rate FiO2 10/10/17 07:11 36.9 87 18 116/64 (81) 98 Nasal Cannula 4.0 10/10/17 07:01 82 18 94 Nasal Cannula 4.0 10/10/17 04:00 97 BiPAP 4.0 10/10/17 03:35 36.9 80 17 115/64 (81) 97 BiPAP 10/10/17 02:00 82 18 92 BiPAP/CPAP 4.0 10/10/17 00:01 94 BiPAP 4.0 10/09/17 23:35 37.1 93 19 108/57 (74) 94 BiPAP 10/09/17 23:11 84 94 4.0 10/09/17 21:03 37.3 104 22 108/48 97 Nasal Cannula 4.0 10/09/17 20:28 36.8 102 23 120/60 97 Nasal Cannula 4.0 10/09/17 19:07 105 21 124/53 97 Nasal Cannula 4.0 10/09/17 17:08 116 21 96 10/09/17 17:00 134/54 10/09/17 16:38 119 22 96 10/09/17 16:30 120/50 10/09/17 16:08 125 19 94 10/09/17 16:00 133/57 10/09/17 15:49 135 10/09/17 15:30 144/71 10/09/17 15:10 36.7 134 20 173/65 94 Nasal Cannula 4.0 10/09/17 15:10 94 Nasal Cannula 4.0 10/09/17 15:10 94 Nasal Cannula 4.0 Physical Exam General Appearance: WD/WN, no apparent distress Eyes: normal inspection ENT: hearing grossly normal Respiratory/Chest: chest non-tender, lungs clear, normal breath sounds, no respiratory distress, no accessory muscle use Cardiovascular: regular rate, rhythm, no edema, no murmur Abdomen: non tender, soft, + pertinent finding (+colostomy in place) Extremities: normal range of motion, non-tender, normal inspection, no pedal edema, no calf tenderness Neurologic/Psychiatric: no motor/sensory deficits, alert, normal mood/affect Laboratory Results Last 24 Hours Test 10/09/17 16:30 10/09/17 21:02 10/09/17 21:08 10/09/17 21:17 White Blood Count 14.28 K/uL Red Blood Count 3.36 M/uL Hemoglobin 9.7 g/dL 9.7 g/dL Hematocrit 31.2 % 30.3 % Mean Corpuscular Volume 92.9 fL Mean Corpuscular Hemoglobin 28.9 pg Mean Corpuscular Hemoglobin Concent 31.1 g/dl Platelet Count 140 K/uL Mean Platelet Volume 9.2 fL Neutrophils (%) (Auto) 94.8 % Lymphocytes (%) (Auto) 1.4 % Monocytes (%) (Auto) 3.2 % Eosinophils (%) (Auto) 0.3 % Basophils (%) (Auto) 0.1 % Neutrophils # (Auto) 13.54 K/uL Lymphocytes # (Auto) 0.20 K/uL Monocytes # (Auto) 0.45 K/uL Eosinophils # (Auto) 0.04 K/uL Basophils # (Auto) 0.02 K/uL RDW Standard Deviation 52.6 fL RDW Coefficient of Variation 15.5 % Immature Granulocyte % (Auto) 0.2 % Immature Granulocyte # (Auto) 0.03 K/uL Nucleated RBC Absolute Count (auto) 0.02 K/uL Nucleated Red Blood Cells % 0.1 % Prothrombin Time 11.0 SECONDS Prothromb Time International Ratio 1.0 Activated Partial Thromboplast Time 22.6 SECONDS Partial Thromboplastin Ratio 0.9 Sodium Level 140 mmol/L Potassium Level 3.4 mmol/L Chloride Level 99 mmol/L Carbon Dioxide Level 37 mmol/L Anion Gap 4.0 mmol/L Blood Urea Nitrogen 16 mg/dl Creatinine 1.80 mg/dl Est Creatinine Clear Calc Drug Dose 25.2 ml/min Estimated GFR () 30.5 Estimated GFR (Non- 26.3 BUN/Creatinine Ratio 8.8 Random Glucose 134 mg/dl Calcium Level 8.3 mg/dl Magnesium Level 2.2 mg/dl Total Bilirubin 0.6 mg/dl Direct Bilirubin 0.1 mg/dl Aspartate Amino Transf (AST/SGOT) 18 U/L Alanine Aminotransferase (ALT/SGPT) 10 U/L Alkaline Phosphatase 81 U/L Lactate Dehydrogenase 286 U/L Total Creatine Kinase 106 U/L Creatine Kinase MB 2.6 ng/ml Creatine Kinase MB Ratio 2.5 Troponin I 0.075 ng/ml Pro-B-Type Natriuretic Peptide 987 pg/ml Total Protein 7.8 gm/dl Albumin 2.8 gm/dl Lipase 156 U/L Thyroid Stimulating Hormone (TSH) 1.420 uIu/ml Bedside Glucose 231 mg/dl Procalcitonin 7.59 ng/ml Arterial Blood pH 7.43 Arterial Blood Partial Pressure CO2 51 mmHg Arterial Blood Partial Pressure O2 97 mm/Hg Arterial Blood HCO3 33 mmol/L Arterial Blood Oxygen Saturation 96.1 % Arterial Blood Base Excess 7.9 mEq/L Arterial Blood Gas Delivery 4 L Faustino Test POS Test 10/09/17 21:58 10/10/17 00:00 10/10/17 07:05 10/10/17 07:35 Troponin I 0.333 ng/ml 0.327 ng/ml Urine Color YELLOW Urine Appearance CLEAR Urine pH 5.0 Urine Specific [place] 1.012 Urine Protein NEG Urine Glucose (UA) NEG Urine Ketones NEG Urine Occult Blood 1+ Urine Nitrite NEG Urine Bilirubin NEG Urine Urobilinogen NEG Urine Leukocyte Esterase NEG Urine WBC (Auto) 1-5 /hpf Urine RBC (Auto) 5-10 /hpf Urine Hyaline Casts (Auto) 1-5 /lpf Urine Epithelial Cells (Auto) 5-10 /lpf Urine Bacteria (Auto) NEG White Blood Count 13.43 K/uL Red Blood Count 3.21 M/uL Hemoglobin 9.2 g/dL Hematocrit 29.5 % Mean Corpuscular Volume 91.9 fL Mean Corpuscular Hemoglobin 28.7 pg Mean Corpuscular Hemoglobin Concent 31.2 g/dl Platelet Count 147 K/uL Mean Platelet Volume 8.9 fL Neutrophils (%) (Auto) 92.1 % Lymphocytes (%) (Auto) 4.3 % Monocytes (%) (Auto) 3.1 % Eosinophils (%) (Auto) 0.0 % Basophils (%) (Auto) 0.1 % Neutrophils # (Auto) 12.37 K/uL Lymphocytes # (Auto) 0.58 K/uL Monocytes # (Auto) 0.42 K/uL Eosinophils # (Auto) 0.00 K/uL Basophils # (Auto) 0.01 K/uL RDW Standard Deviation 53.0 fL RDW Coefficient of Variation 15.8 % Immature Granulocyte % (Auto) 0.4 % Immature Granulocyte # (Auto) 0.05 K/uL Sodium Level 138 mmol/L Potassium Level 4.1 mmol/L Chloride Level 96 mmol/L Carbon Dioxide Level 37 mmol/L Anion Gap 5.0 mmol/L Blood Urea Nitrogen 19 mg/dl Creatinine 1.92 mg/dl Est Creatinine Clear Calc Drug Dose 22.1 ml/min Estimated GFR () 28.2 Estimated GFR (Non- 24.3 BUN/Creatinine Ratio 10.1 Random Glucose 138 mg/dl Calcium Level 8.5 mg/dl Magnesium Level 2.2 mg/dl Bedside Glucose 149 mg/dl Assessment and Plan This is a 77 year old female with a past medical history of severe COPD and chronic respiratory failure on 4L of O2 continuously, chronic diastolic CHF, CAD with a hx. of a stent in 2007, Crohn's disease s/p colostomy, DM2, CKD stage IV, anemia of chronic disease, HTN, hypothyroidism - presents after transfusion at [facility] due to worsening joint and back pains and shortness of breath Acute on Chronic Hypoxic Respiratory Failure R Basilar Pneumonia Severe COPD - patient presents with shortness of breath - she was seen by nephrology and due to anemia was transfused two units of packed RBCs - continued to have shortness of breath and chest pressure and presented to the ED - abdominal/pelvis CT suggests a R basilar infiltrate, patient has elevated WBC and procalcitonin levels - currently on doxycycline, which I will continue and will monitor for worsening signs of infection - continue inhalers and nebs PRN for COPD, in no exacerbation at this time - on 4L of O2 continuously at baseline Acute on Chronic Diastolic CHF - seems to have had an exacerbation due to blood transfusion - s/p two units of pRBCs - received IV Lasix with improvement - now back to her baseline Torsemide; which we will continue Hx. 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 - creatinine at baseline is around 1.7-1.9 - currently at baseline - Hgb is up after two units of pRBCs, >9; monitor DM2 - well controlled - currently holding oral agents, will likely restart Januvia prior to discharge - on an insulin sliding scale for now Crohn's disease s/p colostomy HTN - blood pressure stable Hypothyroidism - TSH wnl - continue Synthroid DVT ppx - subq heparin FULL CODE
--- NOTE | 2017-10-10 12:44 | NEPHROLOGY CONSULTATION ---
DATE OF CONSULTATION: 10/10/2017 ATTENDING OF RECORD: Dr. Puri. REASON FOR CONSULTATION: CKD and volume overload. HISTORY OF PRESENT ILLNESS: This is a 77-year-old female who does have underlying diastolic heart failure with COPD on 4 liters oxygen continuous, who has Crohn's disease status post colostomy as well as CKD stage IV, underlying diabetes and hypertension, who has been feeling weak, hemoglobin level was down to 7.1 on October 05, brought in for 2 units of packed red blood cells Monday morning. After the blood, the patient developed low back pain and hip pain, did take 2 Tramadol as well as 2 Jacinta Back and Body, was not improving, started to become more short of breath and brought to the Emergency Room. The patient was given nebulizers, steroids and Lasix. The patient is currently out of bed to chair, feeling much better. Pain has improved. Troponin did trend up to 0.333 and is trending back down. Creatinine was 1.8, now up to 1.92. Hemoglobin levels now in the 9 range. Imaging showed an infiltrate in the right base. Chest x-ray shows cardiomegaly with possible volume overload, no nishant pulmonary edema, findings suggestive of emphysema. REVIEW OF SYSTEMS: No headaches, no blurry vision, no dysphagia. Chronic shortness of breath, no chest pain, no nausea or vomiting, no diarrhea or constipation, no dysuria or hematuria. Did have a leg and back pain which has improved. No pruritus. All other review of systems otherwise negative. CURRENT MEDICATIONS: Lantus 5 units at night, doxycycline 100 mg IV q. 12, Coreg 6.25 mg p.o. b.i.d., vitamin D 400 units daily, vitamin B12 1000 mcg daily, iron 325 mg daily, folic acid 1 mg daily, Daliresp 500 mcg daily, Crestor 20 mg daily, Celexa 10 mg daily, zinc 220 mg daily, torsemide 20 mg daily, aspirin 81 mg daily, Synthroid 75 mcg daily, heparin 5000 units subQ q. 8, Symbicort and Atrovent inhalers, multivitamin, Protonix 40 mg p.o. b.i.d., sulfasalazine 1000 mg p.o. t.i.d., sliding scale insulin. PAST MEDICAL AND SURGICAL HISTORY: CKD stage IV, hypertension, COPD, Crohn's disease, type 2 diabetes, diastolic heart failure, hyperlipidemia, hypothyroidism. PAST SURGICAL HISTORY: Colostomy, carpal tunnel surgery, appendectomy, hysterectomy, tonsillectomy. FAMILY HISTORY: Significant for diabetes. SOCIAL HISTORY: Former smoker, no alcohol, no drugs. PHYSICAL EXAMINATION: VITAL SIGNS: Temperature 36.9, pulse 87, respiratory rate is 18, blood pressure is 116/64, satting 98% on 4 liters. GENERAL: Awake, alert, oriented x3. EYES: No scleral icterus. ENT: Moist mucous membranes. NECK: Supple. PULMONARY: Decreased breath sounds at the bases. CARDIAC: Regular rate and rhythm. ABDOMEN: Bowel sounds positive, soft, nontender, nondistended, positive colostomy. EXTREMITIES: No significant clubbing, cyanosis or edema. NEUROLOGICALLY: Nonfocal. DERMATOLOGIC: No rash or ulcers noted. LABORATORIES: White count is 13, H and H 9 and 29, platelet count is 147. Sodium level is 138, potassium 4.1, chloride is 96, bicarbonate is 37, BUN is 19, creatinine is 1.92, glucose 138, calcium is 8.5, mag is 2.2. UA shows 1+ blood, 5-10 RBCs. INR is 1. Blood gas showed pH 7.43, pCO2 of 51, pO2 of 97, bicarbonate of 33. ASSESSMENT AND PLAN: Chronic kidney disease stage IV, who appears to have become volume overloaded after 2 units of blood and did receive Lasix in the ER as well as again on the floor of 20 mg IV. Currently on doxycycline for possible atypical pneumonia and is on torsemide 20 mg orally daily, hold on any further IV Lasix for now. Volume status appears improved. Hemoglobin levels are much improved, from 7.1 now up to the 9s. No indication for emergent dialysis at this time. Hopefully, creatinine remains stable, electrolytes remain stable. Question whether patient would benefit from Procrit as an outpatient. Will check an iron sat and ferritin for tomorrow to see if she qualifies. IVORY
--- NOTE | 2017-10-10 15:30 | ECHOCARDIOGRAM REPORT ---
*NOTICE TO RECEIVING REPUBLICAN AGENCY This information is strictly Confidential and protected under [place] law. [place] law prohibits you from making any further disclosure of this information unless further disclosure is expressly permitted by the written consent of the person to whom it pertains or is authorized by law. A general authorization for the release of medical or other information is not sufficient for this purpose. Hospital accepts no responsibility if the information is made available to any other person, INCLUDING THE PATIENT. Interpretation Summary * Name: NEFTALI SHORE Study Date: 10/10/2017 09:58 AM BP: 116/64 mmHg * Patient Location: C.2T\S\S242\S\2 HR: 87 * : 1940 (M/d/yyy) Gender: Female Height: 62 in * Age: 77 yrs Ethnicity: CA Weight: 159 lb * Ordering Physician: Jovi Puri * Referring Physician: Self, Referred * Performed By: Tanja Valdes RCS * * Reason For Study: Chest Pain * BSA: 1.7 m2 * -- Conclusions -- * Compared to previous study of 01/05/17: LV systolic function has reduced. * Normal LV chamber size and wall thickness. * Mildly reduced LV systolic function with mild global hypokinesis, EF 45-50%. * Grade II diastolic dysfunction. * Aortic valve sclerosis mild, without significant aortic valvular stenosis. Procedure Details * A complete two-dimensional transthoracic echocardiogram was performed (2D, M-mode, Doppler and color flow Doppler). Left Ventricle * The left ventricle is normal in size. * There is normal left ventricular wall thickness. * Left ventricular systolic function is mildly reduced. * Ejection Fraction = 45-50%. * There is mild global hypokinesis of the left ventricle. Right Ventricle * The right ventricular cavity size is normal (basal dimension <4.2 cm in right ventricular apical 4-chamber view). * The right ventricular systolic function is normal as assessed by tricuspid annular plane systolic excursion (TAPSE) (normal >1.5 cm). Atria * The left atrial size is normal. * Right atrial size is normal. * No ASD detected; PFO is not assessed. Mitral Valve * The mitral valve is normal in structure and function. Tricuspid Valve * The tricuspid valve is normal in structure and function. Aortic Valve * The aortic valve is tricuspid. The leaflet thickness if normal. There is no aortic stenosis, and no significant insufficiency. * Aortic valve sclerosis mild, without significant aortic valvular stenosis. * There is no significant aortic regurgitation. Pulmonic Valve * The pulmonary valve is not well seen, but the Doppler examination is normal without significant regurgitation or stenosis. Great Vessels * The aortic root and proximal ascending aorta are normal sized. Pericardium/Pleural * There is no pericardial effusion. Left Ventricular Diastolic Function * Diastolic dysfunction, Grade II (pseudonormalization pattern). MMode 2D Measurements and Calculations IVSd 1.0 cm IVSs 1.4 cm LVIDd 4.6 cm LVIDs 3.7 cm LVPWd 1.0 cm LVPWs 1.4 cm IVS/LVPW 1.0 FS 19.9 % EDV(Teich) 99.2 ml ESV(Teich) 58.8 ml EF(Teich) 40.8 % EDV(cubed) 99.8 ml ESV(cubed) 51.4 ml EF(cubed) 48.5 % % IVS thick 36.7 % % LVPW thick 34.6 % LV mass(C)d 163.3 grams LV mass(C)dI 94.2 grams/m\S\2 LV mass(C)s 182.1 grams LV mass(C)sI 105.0 grams/m\S\2 SV(Teich) 40.4 ml SI(Teich) 23.3 ml/m\S\2 SV(cubed) 48.4 ml SI(cubed) 27.9 ml/m\S\2 Ao root diam 3.4 cm Ao root area 8.9 cm\S\2 ACS 1.7 cm LA dimension 3.9 cm asc Aorta Diam 3.2 cm LA/Ao 1.2 EDV(MOD-sp4) 76.4 ml ESV(MOD-sp4) 45.7 ml EF(MOD-sp4) 40.2 % EDV(MOD-sp2) 85.8 ml ESV(MOD-sp2) 37.3 ml EF(MOD-sp2) 56.5 % SV(MOD-sp4) 30.7 ml SI(MOD-sp4) 17.7 ml/m\S\2 SV(MOD-sp2) 48.5 ml SI(MOD-sp2) 28.0 ml/m\S\2 Doppler Measurements and Calculations MV E max barbara 90.6 cm/sec MV A max barbara 82.8 cm/sec MV E/A 1.1 MV P1/2t max barbara 97.1 cm/sec MV P1/2t 65.5 msec MVA(P1/2t) 3.4 cm\S\2 MV dec slope 434.2 cm/sec\S\2 MV dec time 0.29 sec Ao V2 max 109.6 cm/sec Ao max PG 4.8 mmHg Ao max PG (full) 0.96 mmHg LV V1 max PG 3.8 mmHg LV V1 max 98.0 cm/sec PA V2 max 76.8 cm/sec PA max PG 2.4 mmHg TR max barbara 200.6 cm/sec
[2017-10-10] MEDS: DOXYCYCLINE IV 100 MG in DEXTROSE 5% 100ML 100 ML IV SCH (17:31)
[2017-10-10] MEDS: INSULIN GLARGINE SOLOSTAR 100 UNITS/ML 3 ML PEN SC SCH (21:36)
[2017-10-10] MEDS: HYDROmorphone INJ 0.5 MG/0.5 ML SYR IV PRN (21:37)
[2017-10-11] VITALS (12 sets, daily range): BP systolic 87–121; BP diastolic 45–63; PULSE 83–104; TEMP 36.4–36.9; O2SAT 92–98
[2017-10-11] MEDS ORDERED: ZOLPIDEM TARTRATE 5 MG TAB PO ONE (00:30)
[2017-10-11] MEDS: HYDROmorphone INJ 0.5 MG/0.5 ML SYR IV PRN (01:08)
[2017-10-11] MEDS: LEVALBUTEROL 1.25MG/0.5ML NEB INH SCH ×4 (01:31→19:04)
[2017-10-11] MEDS: IPRATROPIUM BROMIDE NEB SOLN 0.02% 2.5 ML VIAL INH SCH ×4 (01:31→19:04)
[2017-10-11] MEDS: DOXYCYCLINE IV 100 MG in DEXTROSE 5% 100ML 100 ML IV SCH ×2 (06:19→18:41)
[2017-10-11] MEDS: LEVOTHYROXINE 75 MCG TAB PO SCH (06:19)
[2017-10-11] MEDS: HEPARIN SOD 5000 UNIT/0.5 ML CARP SQ SCH ×3 (06:23→20:46)
[2017-10-11] MEDS: INSULIN ASPART 100 UNITS/ML 3 ML PEN SC SCH ×4 (07:00→20:44)
[2017-10-11 07:19] LABS: HEMATOCRIT 28.7 % (37-47); MEAN CELL VOLUME 92.3 fL (80-100); MEAN CORPUSCULAR HEMOGLOBIN 28.9 pg (25-34); MEAN CORPUSCULAR HGB CONC 31.4 g/dl (32-36); MEAN PLATELET VOLUME 9.1 fL (7.4-10.4); PLATELET COUNT 154 K/uL (130-400); RED CELL DISTRIBUTION WIDTH CV 16.1 % (11.5-14.5); RED CELL DISTRIBUTION WIDTH SD 53.4 fL (36.4-46.3); WHITE BLOOD COUNT 17.18 K/uL (4.8-10.8)
[2017-10-11 07:55] LABS: BLOOD UREA NITROGEN 26 mg/dl (7-18); CALCIUM 8.2 mg/dl (8.5-10.1); CARBON DIOXIDE 37 mmol/L (21-32); CREATININE 1.93 mg/dl (0.60-1.20); GLUCOSE 120 mg/dl (70-99); POTASSIUM 3.6 mmol/L (3.5-5.1); SODIUM 138 mmol/L (136-145)
[2017-10-11 07:56] LABS: TRANSFERRIN 186 mg/dl (200-360)
[2017-10-11] MEDS: IPRATROPIUM BROMIDE HFA INHALER INH SCH ×4 (08:12→20:42)
[2017-10-11] MEDS: BUDESONIDE/FORMOTEROL FUMARATE 160/4.5 60 PUFFS/INHALER INH SCH ×2 (08:13→15:52)
[2017-10-11] MEDS: SULFASALAZINE 500 MG TABEC PO SCH ×3 (08:14→20:42)
[2017-10-11] MEDS: CITALOPRAM 20 MG TAB PO SCH (08:15)
[2017-10-11] MEDS: CARVEDILOL 6.25 MG TAB PO SCH ×2 (08:17→20:43)
[2017-10-11] MEDS: ROFLUMILAST 500 MCG TAB PO SCH (08:18)
[2017-10-11] MEDS: ROSUVASTATIN CALCIUM 20 MG TAB PO SCH (08:18)
[2017-10-11] MEDS: ASPIRIN 81 MG ECTAB PO SCH (08:19)
[2017-10-11] MEDS: TORSEMIDE 20 MG TAB PO SCH (08:19)
[2017-10-11] MEDS: FERROUS SULFATE 325 MG TAB PO SCH (08:20)
[2017-10-11] MEDS: CEROVITE ADV FORMULA TAB PO SCH ×2 (08:20→20:43)
[2017-10-11] MEDS: PANTOprazole SOD 40 MG TAB PO SCH ×2 (08:21→20:43)
[2017-10-11] MEDS: CYANOCOBALAMIN 500 MCG TAB (VIT B-12) PO SCH (08:21)
[2017-10-11] MEDS: CHOLECALCIFEROL 400 INTER.UNIT TAB PO SCH (08:21)
[2017-10-11] MEDS: ZINC SULFATE 220 MG CAP PO SCH (08:22)
[2017-10-11] MEDS: TRAMADOL HCL 50 MG TAB PO PRN ×2 (08:40→20:41)
[2017-10-11] MEDS ORDERED: ZOLPIDEM TARTRATE 5 MG TAB PO PRN (10:15)
--- NOTE | 2017-10-11 10:15 | Progress Note ---
Subjective Date of Service: October 11, 2017. Subjective Pt evaluation today including: conversation w/ patient, physical exam, lab review, review of studies, review of inpatient medication list Saw/examined the patient in room 242 She's doing well, breathing status improved, pain in the lower extremities improved R flank/back pain with inspiration Problem List Medical Problems: (1) Anemia Status: Acute (2) Bilateral lower extremity pain Status: Acute (3) Carbon dioxide narcosis Status: Acute (4) Cervical strain Status: Acute (5) COPD (chronic obstructive pulmonary disease) Status: Acute (6) Dizziness Status: Acute (7) Elevated troponin Status: Acute (8) Fall Status: Acute (9) Fall Status: Acute (10) Fracture of left distal radius Status: Acute (11) Head injury Status: Acute (12) Hypoxia Status: Acute (13) Neck pain Status: Acute (14) Pneumonia Status: Acute (15) Renal insufficiency Status: Acute (16) Respiratory acidosis Status: Acute (17) Right ureteral stone Status: Acute (18) Shortness of breath Status: Acute Review of Systems Constitutional: No fever, No chills Respiratory: + shortness of breath (chronic), + dyspnea on exertion (improving) , No cough, No sputum, No wheezing, No dyspnea at rest, No hemoptysis Cardiac: No chest pain, No edema, No palpitations Abdomen: No pain, No nausea, No vomiting, No diarrhea Medications Current Inpatient Medications Medications (Trade) Dose Ordered Sig/Gilbert Route Start Time Stop Time Status Last Admin Dose Admin Budesonide/ Formoterol Fumarate (Symbicort 160/ 4.5 Inh) 2 puffs BID INH 10/09/17 21:00 11/08/17 20:59 10/11/17 08:13 2 PUFFS Carvedilol (Coreg Tab) 6.25 mg BID PO 10/10/17 09:00 11/09/17 08:59 10/11/17 08:17 6.25 MG Cholecalciferol (Vitamin D Tab) 400 inter.unit DAILY PO 10/10/17 09:00 11/09/17 08:59 10/11/17 08:21 400 INTER.UNIT Cyanocobalamin (Vitamin B-12 Tab) 1,000 mcg DAILY PO 10/10/17 09:00 11/09/17 08:59 10/11/17 08:21 1,000 MCG Ferrous Sulfate (Feosol Tab) 325 mg DAILY PO 10/10/17 09:00 11/09/17 08:59 10/11/17 08:20 325 MG Folic Acid (Folvite Tab) 1 mg DAILY PO 10/10/17 09:00 11/09/17 08:59 10/11/17 08:20 1 MG Ipratropium [place] (Atrovent Hfa Inhaler) 2 puffs QID INH 10/09/17 21:00 11/08/17 20:59 10/11/17 08:12 2 PUFFS Levothyroxine Sodium (Synthroid Tab) 75 mcg DAILYBB PO 10/10/17 06:00 11/09/17 06:59 10/11/17 06:19 75 MCG Multivitamins/ Minerals (Multivitamin W/ Minerals Tab) 1 tab BID PO 10/09/17 21:00 11/08/17 20:59 10/11/17 08:20 1 TAB Pantoprazole Sodium (Protonix Tab) 40 mg BID PO 10/09/17 21:00 11/08/17 20:59 10/11/17 08:21 40 MG Roflumilast (Daliresp Tab) 500 mcg DAILY PO 10/10/17 09:00 11/09/17 08:59 10/11/17 08:18 500 MCG Rosuvastatin Calcium (Crestor Tab) 20 mg DAILY PO 10/10/17 09:00 11/09/17 08:59 10/11/17 08:18 20 MG Sulfasalazine (Azulfidine Delayed Rel Tab) 1,000 mg TID PO 10/09/17 21:00 11/08/17 20:59 10/11/17 08:14 1,000 MG Citalopram Hydrobromide (celeXA TAB) 10 mg DAILY PO 10/10/17 09:00 11/09/17 08:59 10/11/17 08:15 10 MG Zinc Sulfate (Zinc Sulfate Cap) 220 mg DAILY PO 10/10/17 09:00 11/09/17 08:59 10/11/17 08:22 220 MG Insulin Aspart (novoLOG ASPART) SLIDING SCALE If C... ACHS SC 10/09/17 21:00 11/08/17 20:59 10/09/17 22:08 2 UNITS Glucose (Glucose 40% Gel) 15-30 GRAMS 15 GRAMS... UD PRN PO 10/09/17 19:00 11/08/17 18:59 Glucose (Glucose Chew Tab) 4-8 Tablets 4 Tabl... UD PRN PO 10/09/17 19:00 11/08/17 18:59 Dextrose (Dextrose 50% 50ML Syringe) 25-50ML 25ML FOR ... UD PRN IV 10/09/17 19:00 11/08/17 18:59 Glucagon (Glucagon Inj) 1 mg UD PRN SQ 10/09/17 19:00 11/08/17 18:59 Carbohydrates (Carbohydrates For Hypoglycemia) 15-30 GRAMS 15 grams if BSG 54-69... UD PRN PO 10/09/17 19:00 11/08/17 18:59 Ipratropium [place] (Atrovent 0.02% 0.5MG/2.5ML Neb) 0.5 mg Q6R INH 10/09/17 21:00 11/08/17 20:59 10/11/17 07:06 0.5 MG Levalbuterol (Xopenex 1.25MG/ 0.5ML Neb) 1.25 mg Q6R INH 10/09/17 21:00 11/08/17 20:59 10/11/17 07:06 1.25 MG Ipratropium [place] (Atrovent 0.02% 0.5MG/2.5ML Neb) 0.5 mg Q2R PRN INH 10/09/17 20:30 11/08/17 20:29 Levalbuterol (Xopenex 1.25MG/ 0.5ML Neb) 1.25 mg Q2R PRN INH 10/09/17 20:30 11/08/17 20:29 Tramadol HCl (Ultram Tab) not relieved by tylenol @ Q6H PRN PO 10/09/17 21:15 11/08/17 21:14 10/11/17 08:40 50 MG Prochlorperazine Edisylate 5 mg/ Syringe 5 ml @ 5 mls/min Q6H PRN IV 10/09/17 21:15 11/08/17 21:14 Hydromorphone HCl (Dilaudid Inj) 0.5 mg Q3H PRN IV 10/09/17 21:15 10/23/17 21:14 10/11/17 01:08 0.5 MG Torsemide (Demadex Tab) 20 mg QAM PO 10/10/17 09:00 11/09/17 08:59 10/11/17 08:19 20 MG Aspirin (Ecotrin Tab) 81 mg QAM PO 10/10/17 09:00 11/09/17 08:59 10/11/17 08:19 81 MG Insulin Glargine (Lantus Solostar Pen) 5 units HS SC 10/10/17 21:00 11/09/17 20:59 10/10/17 21:36 5 UNITS Heparin Sodium (Porcine) (Heparin Sq 5000 Unit/0.5ml) 5,000 unit Q8 SQ 10/10/17 06:00 11/09/17 05:59 10/11/17 06:23 5,000 UNIT Doxycycline Hyclate 100 mg/ Dextrose 110 ml @ 50 mls/hr Q12H IV 10/10/17 18:00 10/17/17 17:59 10/11/17 06:19 50 MLS/HR Iron Sucrose 100 mg/Sodium Chloride 105 ml @ 420 mls/hr TODAY@1100 IV 10/11/17 11:00 10/11/17 11:14 Objective Vital Signs Date Time Temp Pulse Resp B/P (MAP) Pulse Ox O2 Delivery O2 Flow Rate FiO2 10/11/17 07:06 101 16 93 Nasal Cannula 4.0 10/11/17 06:57 36.9 101 20 107/63 (78) 95 Nasal Cannula 4.0 10/11/17 04:00 Nasal Cannula 4.0 10/11/17 03:35 36.4 103 17 107/62 (77) 92 BiPAP 10/11/17 01:30 104 18 92 BiPAP/CPAP 4.0 10/11/17 01:30 104 92 4.0 10/11/17 00:00 Nasal Cannula 4.0 10/10/17 23:43 37.6 108 17 122/60 (80) 92 BiPAP 10/10/17 23:07 106 93 4.0 10/10/17 20:00 Nasal Cannula 4.0 10/10/17 19:33 37.4 102 19 102/51 (68) 97 Nasal Cannula 4.0 10/10/17 19:03 78 18 96 Nasal Cannula 4.0 10/10/17 16:00 Nasal Cannula 4.0 10/10/17 15:19 37.0 94 19 112/52 (72) 94 Nasal Cannula 4.0 10/10/17 14:17 81 18 96 Nasal Cannula 4.0 10/10/17 12:00 Nasal Cannula 4.0 10/10/17 10:48 36.6 86 20 112/60 (77) 95 Nasal Cannula 4.0 Physical Exam General Appearance: no apparent distress Respiratory/Chest: no respiratory distress, no accessory muscle use, + decreased breath sounds Cardiovascular: regular rate, rhythm, no edema, no murmur Extremities: normal inspection, no pedal edema Neurologic/Psychiatric: no motor/sensory deficits, alert, normal mood/affect Laboratory Results Last 24 Hours Test 10/10/17 11:25 10/10/17 12:57 10/10/17 16:22 10/10/17 20:37 Bedside Glucose 180 mg/dl 166 mg/dl 163 mg/dl Troponin I 0.252 ng/ml Test 10/11/17 04:44 10/11/17 06:42 Transferrin % Saturation % White Blood Count 17.18 K/uL Red Blood Count 3.11 M/uL Hemoglobin 9.0 g/dL Hematocrit 28.7 % Mean Corpuscular Volume 92.3 fL Mean Corpuscular Hemoglobin 28.9 pg Mean Corpuscular Hemoglobin Concent 31.4 g/dl RDW Standard Deviation 53.4 fL RDW Coefficient of Variation 16.1 % Platelet Count 154 K/uL Mean Platelet Volume 9.1 fL Sodium Level 138 mmol/L Potassium Level 3.6 mmol/L Chloride Level 96 mmol/L Carbon Dioxide Level 37 mmol/L Anion Gap 5.0 mmol/L Blood Urea Nitrogen 26 mg/dl Creatinine 1.93 mg/dl Est Creatinine Clear Calc Drug Dose 22.0 ml/min Estimated GFR () 28.0 Estimated GFR (Non- 24.2 BUN/Creatinine Ratio 13.4 Random Glucose 120 mg/dl Calcium Level 8.2 mg/dl Iron Level 13 mcg/dl Transferrin 186 mg/dl Ferritin 64.8 ng/ml Assessment and Plan This is a 77 year old female with a past medical history of severe COPD and chronic respiratory failure on 4L of O2 continuously, chronic diastolic CHF, CAD with a hx. of a stent in 2007, Crohn's disease s/p colostomy, DM2, CKD stage IV, anemia of chronic disease, HTN, hypothyroidism - presents after transfusion at [facility] due to worsening joint and back pains and shortness of breath Acute on Chronic Hypoxic Respiratory Failure R Basilar Pneumonia Severe COPD 10/11 - patient's breathing status improving today - continue doxycycline for pneumonia - continue nebs, O2 - continue Daliresp and inhalers 10/10 - patient presents with shortness of breath - she was seen by nephrology and due to anemia was transfused two units of packed RBCs - continued to have shortness of breath and chest pressure and presented to the ED - abdominal/pelvis CT suggests a R basilar infiltrate, patient has elevated WBC and procalcitonin levels - currently on doxycycline, which I will continue and will monitor for worsening signs of infection - continue inhalers and nebs PRN for COPD, in no exacerbation at this time - on 4L of O2 continuously at baseline Acute on Chronic Diastolic CHF New onset systolic CHF 10/11 - echo with new onset, mild LV dysfunction, EF of 45-50% - grade 2 diastolic dysfunction - continue Torsemide for now 10/10 - seems to have had an exacerbation due to blood transfusion - s/p two units of pRBCs - received IV Lasix with improvement - now back to her baseline Torsemide; which we will continue Hx. 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 - creatinine at baseline is around 1.7-1.9 - currently at baseline - Hgb is up after two units of pRBCs, >9; monitor - appreciate nephrology input - IV Venofer being used DM2 - well controlled - currently holding oral agents, will likely restart Januvia prior to discharge - on an insulin sliding scale for now Crohn's disease s/p colostomy HTN - blood pressure stable Hypothyroidism - TSH wnl - continue Synthroid DVT ppx - subq heparin FULL CODE
[2017-10-11] MEDS ORDERED: IRON SUCROSE INJ 100 MG in SODIUM CHLORIDE 0.9% 100ML 100 ML IV SCH (11:00)
[2017-10-11] MEDS: INSULIN GLARGINE SOLOSTAR 100 UNITS/ML 3 ML PEN SC SCH (20:45)
[2017-10-12] VITALS (8 sets, daily range): BP systolic 102–121; BP diastolic 58–77; PULSE 76–98; TEMP 36–36.9; O2SAT 92–98
[2017-10-12] MEDS: LEVALBUTEROL 1.25MG/0.5ML NEB INH SCH ×2 (01:54→07:12)
[2017-10-12] MEDS: IPRATROPIUM BROMIDE NEB SOLN 0.02% 2.5 ML VIAL INH SCH ×2 (01:54→07:12)
[2017-10-12] MEDS: DOXYCYCLINE IV 100 MG in DEXTROSE 5% 100ML 100 ML IV SCH (05:47)
[2017-10-12] MEDS: LEVOTHYROXINE 75 MCG TAB PO SCH (05:47)
[2017-10-12] MEDS: HEPARIN SOD 5000 UNIT/0.5 ML CARP SQ SCH (05:48)
[2017-10-12] MEDS: INSULIN ASPART 100 UNITS/ML 3 ML PEN SC SCH ×2 (07:00→11:00)
[2017-10-12 07:07] LABS: HEMATOCRIT 28.8 % (37-47); HEMOGLOBIN 8.9 g/dL (12.0-16.0); MEAN CELL VOLUME 92.9 fL (80-100); MEAN CORPUSCULAR HEMOGLOBIN 28.7 pg (25-34); MEAN CORPUSCULAR HGB CONC 30.9 g/dl (32-36); MEAN PLATELET VOLUME 9.4 fL (7.4-10.4); PLATELET COUNT 150 K/uL (130-400); RED CELL DISTRIBUTION WIDTH CV 15.7 % (11.5-14.5); WHITE BLOOD COUNT 12.36 K/uL (4.8-10.8)
[2017-10-12 07:46] LABS: CALCIUM 8.2 mg/dl (8.5-10.1); CREATININE 1.85 mg/dl (0.60-1.20); POTASSIUM 3.6 mmol/L (3.5-5.1)
[2017-10-12] MEDS: BUDESONIDE/FORMOTEROL FUMARATE 160/4.5 60 PUFFS/INHALER INH SCH (08:13)
[2017-10-12] MEDS: IPRATROPIUM BROMIDE HFA INHALER INH SCH (08:13)
[2017-10-12] MEDS: SULFASALAZINE 500 MG TABEC PO SCH (08:14)
[2017-10-12] MEDS: CARVEDILOL 6.25 MG TAB PO SCH (08:15)
[2017-10-12] MEDS: CITALOPRAM 20 MG TAB PO SCH (08:15)
[2017-10-12] MEDS: ROFLUMILAST 500 MCG TAB PO SCH (08:16)
[2017-10-12] MEDS: ROSUVASTATIN CALCIUM 20 MG TAB PO SCH (08:16)
[2017-10-12] MEDS: TORSEMIDE 20 MG TAB PO SCH (08:17)
[2017-10-12] MEDS: ASPIRIN 81 MG ECTAB PO SCH (08:17)
[2017-10-12] MEDS: CEROVITE ADV FORMULA TAB PO SCH (08:18)
[2017-10-12] MEDS: PANTOprazole SOD 40 MG TAB PO SCH (08:18)
[2017-10-12] MEDS: FERROUS SULFATE 325 MG TAB PO SCH (08:18)
[2017-10-12] MEDS: CYANOCOBALAMIN 500 MCG TAB (VIT B-12) PO SCH (08:19)
[2017-10-12] MEDS: CHOLECALCIFEROL 400 INTER.UNIT TAB PO SCH (08:19)
[2017-10-12] MEDS: ZINC SULFATE 220 MG CAP PO SCH (08:19)
--- NOTE | 2017-10-12 12:08 | Progress Note ---
Subjective Date of Service: October 12, 2017. Subjective Pt evaluation today including: conversation w/ patient, physical exam, lab review, review of studies, review of inpatient medication list Saw/examined the patient in room 242 She's feeling well; no problems to note today She is ambulating well; back to her baseline oxygen minimal pain at the R flank is still present - worse with deep inhalation, but tolerable Problem List Medical Problems: (1) Anemia Status: Acute (2) Bilateral lower extremity pain Status: Acute (3) Carbon dioxide narcosis Status: Acute (4) Cervical strain Status: Acute (5) COPD (chronic obstructive pulmonary disease) Status: Acute (6) Dizziness Status: Acute (7) Elevated troponin Status: Acute (8) Fall Status: Acute (9) Fall Status: Acute (10) Fracture of left distal radius Status: Acute (11) Head injury Status: Acute (12) Hypoxia Status: Acute (13) Neck pain Status: Acute (14) Pneumonia Status: Acute (15) Renal insufficiency Status: Acute (16) Respiratory acidosis Status: Acute (17) Right ureteral stone Status: Acute (18) Shortness of breath Status: Acute Review of Systems Constitutional: No fever, No chills Respiratory: + shortness of breath (chronic), + dyspnea on exertion, No cough, No sputum Cardiac: No chest pain, No edema, No palpitations Abdomen: No pain, No nausea, No vomiting, No diarrhea Medications Current Inpatient Medications Medications (Trade) Dose Ordered Sig/Gilbert Route Start Time Stop Time Status Last Admin Dose Admin Budesonide/ Formoterol Fumarate (Symbicort 160/ 4.5 Inh) 2 puffs BID INH 10/09/17 21:00 11/08/17 20:59 10/12/17 08:13 2 PUFFS Carvedilol (Coreg Tab) 6.25 mg BID PO 10/10/17 09:00 11/09/17 08:59 10/12/17 08:15 6.25 MG Cholecalciferol (Vitamin D Tab) 400 inter.unit DAILY PO 10/10/17 09:00 11/09/17 08:59 10/12/17 08:19 400 INTER.UNIT Cyanocobalamin (Vitamin B-12 Tab) 1,000 mcg DAILY PO 10/10/17 09:00 11/09/17 08:59 10/12/17 08:19 1,000 MCG Ferrous Sulfate (Feosol Tab) 325 mg DAILY PO 10/10/17 09:00 11/09/17 08:59 10/12/17 08:18 325 MG Folic Acid (Folvite Tab) 1 mg DAILY PO 10/10/17 09:00 11/09/17 08:59 10/12/17 08:18 1 MG Ipratropium [place] (Atrovent Hfa Inhaler) 2 puffs QID INH 10/09/17 21:00 11/08/17 20:59 10/12/17 08:13 2 PUFFS Levothyroxine Sodium (Synthroid Tab) 75 mcg DAILYBB PO 10/10/17 06:00 11/09/17 06:59 10/12/17 05:47 75 MCG Multivitamins/ Minerals (Multivitamin W/ Minerals Tab) 1 tab BID PO 10/09/17 21:00 11/08/17 20:59 10/12/17 08:18 1 TAB Pantoprazole Sodium (Protonix Tab) 40 mg BID PO 10/09/17 21:00 11/08/17 20:59 10/12/17 08:18 40 MG Roflumilast (Daliresp Tab) 500 mcg DAILY PO 10/10/17 09:00 11/09/17 08:59 10/12/17 08:16 500 MCG Rosuvastatin Calcium (Crestor Tab) 20 mg DAILY PO 10/10/17 09:00 11/09/17 08:59 10/12/17 08:16 20 MG Sulfasalazine (Azulfidine Delayed Rel Tab) 1,000 mg TID PO 10/09/17 21:00 11/08/17 20:59 10/12/17 08:14 1,000 MG Citalopram Hydrobromide (celeXA TAB) 10 mg DAILY PO 10/10/17 09:00 11/09/17 08:59 10/12/17 08:15 10 MG Zinc Sulfate (Zinc Sulfate Cap) 220 mg DAILY PO 10/10/17 09:00 11/09/17 08:59 10/12/17 08:19 220 MG Insulin Aspart (novoLOG ASPART) SLIDING SCALE If C... ACHS SC 10/09/17 21:00 11/08/17 20:59 10/11/17 11:15 1 UNITS Glucose (Glucose 40% Gel) 15-30 GRAMS 15 GRAMS... UD PRN PO 10/09/17 19:00 11/08/17 18:59 Glucose (Glucose Chew Tab) 4-8 Tablets 4 Tabl... UD PRN PO 10/09/17 19:00 11/08/17 18:59 Dextrose (Dextrose 50% 50ML Syringe) 25-50ML 25ML FOR ... UD PRN IV 10/09/17 19:00 11/08/17 18:59 Glucagon (Glucagon Inj) 1 mg UD PRN SQ 10/09/17 19:00 11/08/17 18:59 Carbohydrates (Carbohydrates For Hypoglycemia) 15-30 GRAMS 15 grams if BSG 54-69... UD PRN PO 10/09/17 19:00 11/08/17 18:59 Ipratropium [place] (Atrovent 0.02% 0.5MG/2.5ML Neb) 0.5 mg Q6R INH 10/09/17 21:00 11/08/17 20:59 10/12/17 07:12 0.5 MG Levalbuterol (Xopenex 1.25MG/ 0.5ML Neb) 1.25 mg Q6R INH 10/09/17 21:00 11/08/17 20:59 10/12/17 07:12 1.25 MG Ipratropium [place] (Atrovent 0.02% 0.5MG/2.5ML Neb) 0.5 mg Q2R PRN INH 10/09/17 20:30 11/08/17 20:29 Levalbuterol (Xopenex 1.25MG/ 0.5ML Neb) 1.25 mg Q2R PRN INH 10/09/17 20:30 11/08/17 20:29 Tramadol HCl (Ultram Tab) not relieved by tylenol @ Q6H PRN PO 10/09/17 21:15 11/08/17 21:14 10/11/17 20:41 50 MG Prochlorperazine Edisylate 5 mg/ Syringe 5 ml @ 5 mls/min Q6H PRN IV 10/09/17 21:15 11/08/17 21:14 Hydromorphone HCl (Dilaudid Inj) 0.5 mg Q3H PRN IV 10/09/17 21:15 10/23/17 21:14 10/11/17 01:08 0.5 MG Torsemide (Demadex Tab) 20 mg QAM PO 10/10/17 09:00 11/09/17 08:59 10/12/17 08:17 20 MG Aspirin (Ecotrin Tab) 81 mg QAM PO 10/10/17 09:00 11/09/17 08:59 10/12/17 08:17 81 MG Insulin Glargine (Lantus Solostar Pen) 5 units HS SC 10/10/17 21:00 11/09/17 20:59 10/11/17 20:45 5 UNITS Heparin Sodium (Porcine) (Heparin Sq 5000 Unit/0.5ml) 5,000 unit Q8 SQ 10/10/17 06:00 11/09/17 05:59 10/12/17 05:48 5,000 UNIT Doxycycline Hyclate 100 mg/ Dextrose 110 ml @ 50 mls/hr Q12H IV 10/10/17 18:00 10/17/17 17:59 10/12/17 05:47 50 MLS/HR Zolpidem Tartrate (Ambien Tab) 5 mg HS PRN PO 10/11/17 10:15 11/10/17 10:14 10/11/17 23:08 5 MG Objective Vital Signs Date Time Temp Pulse Resp B/P (MAP) Pulse Ox O2 Delivery O2 Flow Rate FiO2 10/12/17 10:38 36.7 88 20 102/61 (75) 94 Nasal Cannula 4.0 10/12/17 08:00 Nasal Cannula 43.0 10/12/17 07:23 36.7 98 18 121/66 (84) 98 Nasal Cannula 4.0 10/12/17 07:15 91 16 98 Nasal Cannula 4.0 10/12/17 04:57 36.1 95 18 110/66 (81) 92 Room Air 10/12/17 04:00 CPAP 10/12/17 01:54 96 16 95 BiPAP/CPAP 4.0 10/12/17 00:39 Room Air 10/12/17 00:01 36.9 94 22 108/58 (75) 95 CPAP 10/12/17 00:01 CPAP 10/11/17 23:24 93 4.0 10/11/17 20:00 Nasal Cannula 4.0 10/11/17 19:17 36.9 93 20 121/55 (77) 94 Nasal Cannula 4.0 10/11/17 19:04 92 16 93 Nasal Cannula 4.0 10/11/17 16:00 Nasal Cannula 4.0 10/11/17 15:29 36.6 83 22 87/45 (59) 95 Nasal Cannula 4.0 10/11/17 14:03 85 18 98 Nasal Cannula 4.0 10/11/17 12:00 94 Room Air Physical Exam General Appearance: no apparent distress Respiratory/Chest: chest non-tender, lungs clear, normal breath sounds, no respiratory distress, no accessory muscle use Cardiovascular: regular rate, rhythm, no edema, no murmur Extremities: normal inspection, no pedal edema Neurologic/Psychiatric: no motor/sensory deficits, alert, normal mood/affect Laboratory Results Last 24 Hours Test 10/11/17 16:26 10/11/17 20:39 10/12/17 06:41 10/12/17 07:21 Bedside Glucose 174 mg/dl 178 mg/dl 139 mg/dl White Blood Count 12.36 K/uL Red Blood Count 3.10 M/uL Hemoglobin 8.9 g/dL Hematocrit 28.8 % Mean Corpuscular Volume 92.9 fL Mean Corpuscular Hemoglobin 28.7 pg Mean Corpuscular Hemoglobin Concent 30.9 g/dl RDW Standard Deviation 53.0 fL RDW Coefficient of Variation 15.7 % Platelet Count 150 K/uL Mean Platelet Volume 9.4 fL Sodium Level 138 mmol/L Potassium Level 3.6 mmol/L Chloride Level 96 mmol/L Carbon Dioxide Level 36 mmol/L Anion Gap 6.0 mmol/L Blood Urea Nitrogen 23 mg/dl Creatinine 1.85 mg/dl Est Creatinine Clear Calc Drug Dose 23.1 ml/min Estimated GFR () 29.5 Estimated GFR (Non- 25.4 BUN/Creatinine Ratio 12.6 Random Glucose 117 mg/dl Calcium Level 8.2 mg/dl Test 10/12/17 11:14 Bedside Glucose 131 mg/dl Assessment and Plan This is a 77 year old female with a past medical history of severe COPD and chronic respiratory failure on 4L of O2 continuously, chronic diastolic CHF, CAD with a hx. of a stent in 2007, Crohn's disease s/p colostomy, DM2, CKD stage IV, anemia of chronic disease, HTN, hypothyroidism - presents after transfusion at [facility] due to worsening joint and back pains and shortness of breath Acute on Chronic Hypoxic Respiratory Failure R Basilar Pneumonia Severe COPD 10/12 - improving, planning to d/c home today with home health - continue doxycycline - continue nebulizers, oxygen 10/11 - patient's breathing status improving today - continue doxycycline for pneumonia - continue nebs, O2 - continue Daliresp and inhalers 10/10 - patient presents with shortness of breath - she was seen by nephrology and due to anemia was transfused two units of packed RBCs - continued to have shortness of breath and chest pressure and presented to the ED - abdominal/pelvis CT suggests a R basilar infiltrate, patient has elevated WBC and procalcitonin levels - currently on doxycycline, which I will continue and will monitor for worsening signs of infection - continue inhalers and nebs PRN for COPD, in no exacerbation at this time - on 4L of O2 continuously at baseline Acute on Chronic Diastolic CHF New onset systolic CHF 10/11 - echo with new onset, mild LV dysfunction, EF of 45-50% - grade 2 diastolic dysfunction - continue Torsemide for now 10/10 - seems to have had an exacerbation due to blood transfusion - s/p two units of pRBCs - received IV Lasix with improvement - now back to her baseline Torsemide; which we will continue Hx. 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 - creatinine at baseline is around 1.7-1.9 - currently at baseline - Hgb is up after two units of pRBCs, >9; monitor - appreciate nephrology input - IV Venofer being used DM2 - well controlled - currently holding oral agents, will likely restart Januvia prior to discharge - on an insulin sliding scale for now Crohn's disease s/p colostomy HTN - blood pressure stable Hypothyroidism - TSH wnl - continue Synthroid DVT ppx - subq heparin FULL CODE
[2017-10-12] MEDS ORDERED: DXY100 PO (12:15)
--- NOTE | 2017-10-12 12:20 | Discharge Instructions ---
Discharge Instructions Date of Service October 12, 2017. Admission Reason for Admission: Respiratory Failure, [facility] Discharge Discharge Diagnosis / Problem: Pneumonia Discharge Goals Goal(s): Decrease discomfort, Improve function, Diagnostic testing, Therapeutic intervention Activity Recommendations Activity Limitations: resume your previous activity . Instructions / Follow-Up Instructions / Follow-Up Please follow-up with Dr. Samano on October 17 at 11AM * You will be discharged with doxycycline (antibiotic) * Continue your 4L of oxygen at all times * Use bipap at night at all times Current Hospital Diet Patient's current hospital diet: Diabetes Type 2 Diet, AHA Diet (Heart Healthy) Discharge Diet Recommended Diet: AHA Diet (Heart Healthy), Diabetes Type 2 Diet Pending Studies Studies pending at discharge: no Medical Emergencies . Who to Call and When: Medical Emergencies: If at any time you feel your situation is an emergency, please call 911 immediately. . Non-Emergent Contact Non-Emergency issues call your: Primary Care Provider . . "Provider Documentation" section prepared by Jovi Puri. .
--- NOTE | 2017-10-12 12:25 | Discharge Summary ---
Discharge Summary Date of Service October 12, 2017. Discharge Summary Admission Date: October 09, 2017 at 20:58 Discharge Date: October 12, 2017 Discharge Disposition: Home with services Principal Diagnosis: Acute on Chronic Hypoxic Respiratory Failure R Basilar Pneumonia Severe COPD Acute on Chronic Diastolic CHF New onset systolic CHF Hx. 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 DM2 Crohn's disease s/p colostomy HTN Hypothyroidism Medication Reconciliation New Medications: Doxycycline Hyclate (Doxycycline Hyclate) 100 Mg Cap 100 MG PO BID for 5 Days, #10 CAP Continued Medications: Aspirin (Aspirin Ec) 81 Mg Tab 81 MG PO DAILY Budesonide/Formoterol Fumarate (Symbicort 160/4.5 Inhaler) 120 Puffs/ Aero 2 PUFFS INH BID Carvedilol (Carvedilol) 6.25 Mg Tab 6.25 MG PO BID Cholecalciferol (Vitamin D 1000 Unit) 1,000 Unit Cap 1 TAB PO DAILY, CAP Citalopram Hydrobromide (Citalopram Hydrobromide) 10 Mg Tab 10 MG PO DAILY Cyanocobalamin (Vitamin B-12) 1,000 Mcg Tab 1000 MCG PO DAILY, TAB Ferrous Sulfate (Ferrous Sulfate) 325 Mg Tab 325 MG PO DAILY Folic Acid (Folic Acid) 1 Mg Tab 1 MG PO DAILY Home O2 Therapy (Oxygen) Gas 4 LITER NA CONTINOUS Ipratropium [place] (Atrovent Hfa) 200 Puffs/3400 Mcg Aers 2 PUFFS INH QID Ipratropium-Albuterol (Duoneb) 3 Ml Nebu 1 TREATMENT INH Q4H, INHA Levothyroxine Sodium (Levothyroxine Sodium) 75 Mcg Tab 75 MCG PO DAILY Ocuvite Preservision (Ocuvite Preservision) 1 Tab Tab 1 TAB PO BID, TAB Pantoprazole (Protonix) 40 Mg Tab 40 MG PO BID, TAB Roflumilast (Daliresp) 500 Mcg Tab 1 TAB PO DAILY Rosuvastatin Calcium (Crestor) 20 Mg Tab 20 MG PO DAILY Sitagliptin (Januvia) 25 Mg Tab 25 MG PO DAILY Sulfasalazine (Sulfasalazine) 500 Mg Tabec 2 TAB PO TID Torsemide (Demadex) 20 Mg Tab 20 MG PO DAILY, TAB Zinc (Zinc) 50 Mg Tab 50 MG PO DAILY [Bipap] () for CARBON DIOXIDE NARCOSIS BiPap TUBING, MASK SETTINGS 04/09 WITH OXYGEN Admission Information HPI (per Admitting provider): Pt is 77 y/o F with PMH COPD on 4L O2 continuous, diastolic heart failure, DM II , HTN, CKD IV, CAD, chronic anemia, Crohn's S/P colostomy and others listed below presented to ER with complaint of back pain. Patient received 2 units PRBC and [facility] this morning for anemia. (Hgb: 7.8 on 07/06/17, 7.1 on 10/05/17). Patient states had sudden onset low back pain and bilateral hip and groin pain and pain to bilateral upper leg stopping at bilateral knees. Patient took 2 tablets of Jacinta back and body as well as 2 tablets of tramadol (patient not Rx tramadol). Patient does not feel that she was anymore short of breath than her baseline but states back pain was so bad she is unsure. EMS was called and she was reported that the patient was breathing heavily and that her lips were cyanotic upon their arrival, SPO2 80% on 4L. Patient states since arrival to ER pain has significantly subsided. Reports history of blood transfusion several years ago. Denies fever/chills, diaphoresis, N/V, increased stool to bag, melena , hematochezia, SUNG, dizziness, syncope, vision changes, neck pain, CP, orthopnea , palpitations, cough, sore throat, choking, otalgia, rhinorrhea, abdominal pain , paresthesias, weakness, extremity edema, rashes, urinary symptoms, weight loss. Patient follows with [facility]nephrology. History of echo: 01/2017, EF: 55-60%, grade 1 diastolic dysfunction. In ER patient afebrile, initially tachycardic 134 down to 105. Initially BP: 173/6 down to 124/53. Additionally 94% on 4L, now 96% on 4L. Patient given DuoNeb 2, Lasix 40 mg IV, Solu-Medrol 125 mg IV. Physical Exam (per Admitting): General Appearance: + pertinent finding (Chronic appearing, sitting upright in bed wearing oxygen via nasal canula, respirations 22) Head: normocephalic, atraumatic Eyes: normal inspection, sclerae normal ENT: pharynx normal, + pertinent finding (Mucous membranes moist) Neck: supple, trachea midline Respiratory/Chest: + pertinent finding (Decreased breath sounds throughout, no rales or wheezing noted, respirations 22, no accessory muscle use) Cardiovascular: normal peripheral pulses, + tachycardia (Rate 104 and regular) Abdomen/GI: normal bowel sounds, non tender, soft, + pertinent finding ( Positive colostomy-brown liquid stool in bag) Back: no CVA tenderness Extremities/Musculoskelatal: normal inspection, no calf tenderness, normal capillary refill, no pedal edema, non-tender Neurologic/Psych: alert, normal mood/affect, oriented x 3 Skin: normal color, warm/dry Hospital Course This is a 77 year old female with a past medical history of severe COPD and chronic respiratory failure on 4L of O2 continuously, chronic diastolic CHF, CAD with a hx. of a stent in 2007, Crohn's disease s/p colostomy, DM2, CKD stage IV, anemia of chronic disease, HTN, hypothyroidism - presents after transfusion at [facility] due to worsening joint and back pains and shortness of breath Acute on Chronic Hypoxic Respiratory Failure R Basilar Pneumonia Severe COPD 10/12 - improving, planning to d/c home today with home health - continue doxycycline - continue nebulizers, oxygen 10/11 - patient's breathing status improving today - continue doxycycline for pneumonia - continue nebs, O2 - continue Daliresp and inhalers 10/10 - patient presents with shortness of breath - she was seen by nephrology and due to anemia was transfused two units of packed RBCs - continued to have shortness of breath and chest pressure and presented to the ED - abdominal/pelvis CT suggests a R basilar infiltrate, patient has elevated WBC and procalcitonin levels - currently on doxycycline, which I will continue and will monitor for worsening signs of infection - continue inhalers and nebs PRN for COPD, in no exacerbation at this time - on 4L of O2 continuously at baseline Acute on Chronic Diastolic CHF New onset systolic CHF 10/11 - echo with new onset, mild LV dysfunction, EF of 45-50% - grade 2 diastolic dysfunction - continue Torsemide for now 10/10 - seems to have had an exacerbation due to blood transfusion - s/p two units of pRBCs - received IV Lasix with improvement - now back to her baseline Torsemide; which we will continue Hx. 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 - creatinine at baseline is around 1.7-1.9 - currently at baseline - Hgb is up after two units of pRBCs, >9; monitor - appreciate nephrology input - IV Venofer being used DM2 - well controlled - currently holding oral agents, will likely restart Januvia prior to discharge - on an insulin sliding scale for now Crohn's disease s/p colostomy HTN - blood pressure stable Hypothyroidism - TSH wnl - continue Synthroid DVT ppx - subq heparin FULL CODE Total time spent on discharge = 45 minutes This includes examination of the patient, discharge planning, medication reconciliation, and communication with other providers. Discharge Instructions Please follow-up with Dr. Samano on October 17 at 11AM * You will be discharged with doxycycline (antibiotic) * Continue your 4L of oxygen at all times * Use bipap at night at all times
== END 2017-10-12 15:00 | disposition home health service (06) | DRG 640 ==
LOC: EDBD 15:08 → C.EDC 15:10 → ENRESERV 19:10 → C.2T 20:58
PROVIDERS: ADMIT Internal Medicine; ATTEND Family Medicine
DX: E87.71 Transfusion associated circulatory overload (principal); J96.21 Acute and chronic respiratory failure with hypoxia; I50.33 Acute on chronic diastolic (congestive) heart failure; J18.9 Pneumonia, unspecified organism; N18.4 Chronic kidney disease, stage 4 (severe); I13.0 Hypertensive heart and chronic kidney disease with heart failure and stage 1 through stage 4 chronic kidney disease, or unspecified chronic kidney disease; K50.90 Crohn's disease, unspecified, without complications; I50.21 Acute systolic (congestive) heart failure; J44.9 Chronic obstructive pulmonary disease, unspecified; Z93.3 Colostomy status; E11.21 Type 2 diabetes mellitus with diabetic nephropathy; I25.10 Atherosclerotic heart disease of native coronary artery without angina pectoris; M81.0 Age-related osteoporosis without current pathological fracture; F41.1 Generalized anxiety disorder; Z83.3 Family history of diabetes mellitus; Z87.891 Personal history of nicotine dependence; Z88.1 Allergy status to other antibiotic agents; R79.89 Other specified abnormal findings of blood chemistry; D63.1 Anemia in chronic kidney disease; I65.23 Occlusion and stenosis of bilateral carotid arteries; M54.9 Dorsalgia, unspecified; E03.9 Hypothyroidism, unspecified; F41.9 Anxiety disorder, unspecified; Y84.8 Other medical procedures as the cause of abnormal reaction of the patient, or of later complication, without mention of misadventure at the time of the procedure; Y92.538 Other ambulatory health services establishments as the place of occurrence of the external cause

== ENCOUNTER 2018-01-11 12:11 | Inpatient (IN) | payer OTHER ==
[2018-01-11] VITALS (8 sets, daily range): BP systolic 129–161; BP diastolic 60–69; PULSE 85–97; TEMP 36.5–36.6; O2SAT 91–100; BMI 29.4
[~2018-01-11] VITALS: Ht 157.5 cm; Wt 69.3 kg
[2018-01-11] MEDS ORDERED: ALBUTEROL 0.083% NEBU SOLN 3 ML VIAL INH STA ×2 (12:30→13:24)
--- NOTE | 2018-01-11 12:32 | EMERGENCY ROOM VISIT NOTE ---
History Report prepared by Fauziaibshakeel: Paulette Zambrano Under the Supervision of: Dr. Derek Espinoza M.D. First contact with patient: 12:23 Chief Complaint: SHORTNESS OF BREATH Stated Complaint: RESPIRATORY History of Present Illness The patient is a 77 year old female who presents to the Emergency Room with complaints of worsening shortness of breath. She is accompanied by her daughters. Her daughter states the patient is normally on 4L NC at home. She called the patient this morning and heard her "gasping for breath", so she advised her to call EMS. EMS gave her a nebulizer treatment and she states it provided some relief. The patient fell approximately 1 week ago and sustained an injury to her right lower leg. She hit her head during the fall but did not lose consciousness. She denies any recent abdominal pain. 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 A total of 10 systems reviewed and were otherwise negative. Past Medical & Surgical Medical Problems: (1) Anemia of chronic disease (2) Asthma, allergic (3) Benign hypertension (4) Carotid stenosis, bilateral (5) Chronic obstructive lung disease (6) CKD (chronic kidney disease), stage III (7) COPD exacerbation (8) Coronary artery disease (9) Crohn s disease (10) Diabetes mellitus type 2 (11) Diastolic CHF (12) Dyslipidemia (13) Encounter for removal of vascular catheter (14) Generalized anxiety disorder (15) History of PSVT (paroxysmal supraventricular tachycardia) (16) Hypothyroidism (17) Osteoporosis (18) Peristomal hernia (19) Small bowel obstruction Surgical Problems: (1) Hernia repair (2) History of carpal tunnel surgery of right wrist (3) History of colostomy (4) S/P appendectomy (5) S/P cardiac cath (6) S/P hysterectomy (7) S/P tonsillectomy and adenoidectomy Family History FH: lung cancer SISTER Social History Smoking Status: Former Smoker Alcohol Use: none Drug Use: none Marital Status: single Housing Status: lives with family Occupation Status: retired Current/Historical Medications Scheduled Aspirin ([place] Low Dose Aspiri), 81 MG PO DAILY Carvedilol (Coreg), 6.25 MG PO BIDM Cephalexin Monohydrate (Keflex), 250 MG PO BID Citalopram Hydrobromide (Celexa), 10 MG PO DAILY Cyanocobalamin (Vitamin B-12), 1,000 MCG PO DAILY Folic Acid (Folvite), 1 MG PO DAILY Ipratropium [place] (Atrovent Hfa), 2 PUFFS INH QID Iron-Vitamin C (Fe C Tab 100-250 mg), 1 TAB PO DAILY Levothyroxine Sodium (Levothyroxine Sodium), 75 MCG PO DAILY Multiple Vitamins W/ Minerals (Preservision Areds 2), 1 CAP PO DAILY Roflumilast (Daliresp), 500 MCG PO DAILY Rosuvastatin Calcium (Crestor), 20 MG PO DAILY Sitagliptin Phosphate (Januvia), 25 MG PO DAILY Sulfasalazine (Sulfasalazine), 1,000 MG PO TID Zinc (Zinc), 50 MG PO DAILY Scheduled PRN Torsemide (Torsemide), 20-40 MG PO DAILY PRN for EDEMA Allergies Coded Allergies: Levofloxacin (Verified Allergy, Unknown, Arm itching after infusion finished, 01/11/18) Physical Exam Vital Signs Date Time Temp Pulse Resp B/P (MAP) Pulse Ox O2 Delivery O2 Flow Rate FiO2 01/11/18 14:40 95 18 143/59 99 Nasal Cannula 4.0 01/11/18 14:05 98 18 172/70 100 Room Air 01/11/18 12:20 102 01/11/18 12:15 97 Nasal Cannula 4.0 01/11/18 12:15 97 Nasal Cannula 4.0 01/11/18 12:15 36.7 99 20 123/59 97 Nasal Cannula 4.0 01/11/18 12:15 97 Nasal Cannula 4.0 Physical Exam GENERAL: Awake, alert, well-appearing, in no acute distress HENT: Normocephalic, atraumatic. Oropharynx unremarkable. EYES: Normal conjunctiva. Sclera non-icteric. NECK: Supple. No nuchal rigidity. FROM. No JVD. RESPIRATORY: Clear to auscultation. CARDIAC: Regular rate, normal rhythm. Extremities warm and well perfused. Pulses equal. ABDOMEN: Soft, non-distended. No tenderness to palpation. No rebound or guarding. No masses. RECTAL: Deferred. MUSCULOSKELETAL: Chest examination reveals no tenderness. The back is symmetrical on inspection without obvious abnormality. There is no CVA tenderness to palpation. No joint edema. LOWER EXTREMITIES: 1 inch by 2 inch necrotic ulcer to the right martinez area. Calves are equal size bilaterally and non-tender. No edema. No discoloration. NEURO: Normal sensorium. No sensory or motor deficits noted. SKIN: No rash or jaundice noted. Medical Decision & Procedures ER Provider Diagnostic Interpretation: Radiology results as stated below per my review and radiologist interpretation: CHEST ONE VIEW PORTABLE HISTORY: Pt c/o short of breath. COMPARISON: Chest 12/11/2017. FINDINGS: The heart remains top normal in size. Mild diffuse interstitial thickening which is likely chronic. Emphysema. No pneumothorax. Stable blunting of the right lateral costophrenic sulcus consistent with a trace pleural effusion. Patchy airspace opacities within the right lung base have slightly progressed. IMPRESSION: 1. Slight progression of the patchy airspace opacities within the right lung base. This may represent progressive pneumonia. 2. Trace right pleural effusion, unchanged. 3. Emphysema. Electronically signed by: Tino Kirby M.D. 01/11/2018 12:56 PM Laboratory Results 01/11/18 12:24 Red Blood Count 3.02, Mean Corpuscular Volume 108.3, Mean Corpuscular Hemoglobin 30.5, Mean Corpuscular Hemoglobin Concent 28.1, Mean Platelet Volume 9.4, Neutrophils (%) (Auto) 82.2, Lymphocytes (%) (Auto) 9.6, Monocytes (%) ( Auto) 5.3, Eosinophils (%) (Auto) 2.3, Basophils (%) (Auto) 0.3, Neutrophils # ( Auto) 6.35, Lymphocytes # (Auto) 0.74, Monocytes # (Auto) 0.41, Eosinophils # ( Auto) 0.18, Basophils # (Auto) 0.02 01/11/18 12:24 Test 01/11/18 12:24 White Blood Count 7.72 K/uL (4.8-10.8) Red Blood Count 3.02 M/uL (4.2-5.4) Hemoglobin 9.2 g/dL (12.0-16.0) Hematocrit 32.7 % (37-47) Mean Corpuscular Volume 108.3 fL (80-100) Mean Corpuscular Hemoglobin 30.5 pg (25-34) Mean Corpuscular Hemoglobin Concent 28.1 g/dl (32-36) Platelet Count 166 K/uL (130-400) Mean Platelet Volume 9.4 fL (7.4-10.4) Neutrophils (%) (Auto) 82.2 % Lymphocytes (%) (Auto) 9.6 % Monocytes (%) (Auto) 5.3 % Eosinophils (%) (Auto) 2.3 % Basophils (%) (Auto) 0.3 % Neutrophils # (Auto) 6.35 K/uL (1.4-6.5) Lymphocytes # (Auto) 0.74 K/uL (1.2-3.4) Monocytes # (Auto) 0.41 K/uL (0.11-0.59) Eosinophils # (Auto) 0.18 K/uL (0-0.5) Basophils # (Auto) 0.02 K/uL (0-0.2) RDW Standard Deviation 59.4 fL (36.4-46.3) RDW Coefficient of Variation 15.1 % (11.5-14.5) Immature Granulocyte % (Auto) 0.3 % Immature Granulocyte # (Auto) 0.02 K/uL (0.00-0.02) Anion Gap 3.0 mmol/L (3-11) Est Creatinine Clear Calc Drug Dose 26.8 ml/min Estimated GFR () 35.4 Estimated GFR (Non- 30.6 BUN/Creatinine Ratio 9.2 (10-20) Calcium Level 8.9 mg/dl (8.5-10.1) Total Bilirubin 0.2 mg/dl (0.2-1) Aspartate Amino Transf (AST/SGOT) 18 U/L (15-37) Alanine Aminotransferase (ALT/SGPT) 12 U/L (12-78) Alkaline Phosphatase 79 U/L (45-117) Total Creatine Kinase 43 U/L (26-192) Creatine Kinase MB 1.9 ng/ml (0.5-3.6) Creatine Kinase MB Ratio 4.4 (0-3.0) Troponin I 0.034 ng/ml (0-0.045) Pro-B-Type Natriuretic Peptide 1416 pg/ml (0-1800) Total Protein 7.6 gm/dl (6.4-8.2) Albumin 2.8 gm/dl (3.4-5.0) Globulin 4.8 gm/dl (2.5-4.0) Albumin/Globulin Ratio 0.6 (0.9-2) Labs reviewed by ED physician. Medications Administered Medications (Trade) Dose Ordered Sig/Gilbert Route Start Time Stop Time Status Last Admin Dose Admin Albuterol Sulfate (Ventolin 0.083% 2.5MG/3ML Neb) 2.5 mg NOW STAT INH 01/11/18 12:30 01/11/18 12:33 DC 01/11/18 12:51 2.5 MG Sodium Chloride 500 ml @ 999 mls/hr Q31M STAT IV 01/11/18 13:24 01/11/18 13:54 DC 01/11/18 14:05 999 MLS/HR Piperacillin Sod/ Tazobactam Sod (Zosyn Iv) 4.5 gm NOW STAT IV 01/11/18 13:24 01/11/18 13:28 DC 01/11/18 14:05 4.5 GM Doxycycline Hyclate 100 mg/ Dextrose 110 ml @ 50 mls/hr NOW STAT IV 01/11/18 13:24 01/11/18 15:35 01/11/18 14:41 50 MLS/HR Vancomycin HCl 1000 mg/Sodium Chloride 270 ml @ 125 mls/hr NOW STAT IV 01/11/18 13:24 01/11/18 15:33 01/11/18 14:39 125 MLS/HR Albuterol Sulfate (Ventolin 0.083% 2.5MG/3ML Neb) 2.5 mg NOW STAT INH 01/11/18 13:24 01/11/18 13:28 DC 01/11/18 14:05 2.5 MG ECG Per My Interpretation Indication: SOB/dyspnea Rate (beats per minute): 100 Rhythm: normal sinus Findings: other (No ST elevation, no ST depression) ED Course 1225: Past medical records reviewed. The patient was evaluated in room C7. A complete history and physical examination was performed. 1335: I reevaluated the patient. She is resting comfortably. I discussed my recommendation she remain in the hospital for further evaluation and management and she verbalized complete understanding and agreement. 1344: I discussed the patients case with Coreen Daniel PA-C, [facility]ist. The patient will be further evaluated. Medical Decision Differential diagnosis: Etiologies such as infections, reactive airway disease, pneumonia, pneumothorax , COPD, CHF, cardiac ischemia, pulmonary embolism, musculoskeletal, gastrointestinal, as well as others were entertained. This is a 77-year-old female who presents the emergency department complaining of shortness of breath and hypoxia. The patient has a history of COPD and is normally on 4 L of oxygen at home. She was found to have a grossly elevated CO2 level however the patient is not falling asleep and I strongly suspect that the patient is normally at this level. An ABG was obtained. She was given multiple breathing treatments here in the emergency department. Her chest x- ray is concerning for progressive pneumonia. For this reason blood cultures were obtained and the patient was started on Zosyn and Levaquin and vancomycin. I did discuss the case with the hospitalist service who agreed to admit the patient. Patient and family were in agreement with the treatment plan. Medication Reconcilliation Current Medication List: was personally reviewed by me Blood Pressure Screening Patient's blood pressure: Low blood pressure Consults Time Called: 1330 Consulting Physician: Coreen Daniel PA-C, [facility] Returned Call: 1344 I discussed the patients case [facility] The patient will be further evaluated. Impression Primary Impression: Hypoxia Additional Impression: Pneumonia Scribe Attestation The scribe's documentation has been prepared under my direction and personally reviewed by me in its entirety. I confirm that the note above accurately reflects all work, treatment, procedures, and medical decision making performed by me. Departure Information Dispostion Being Evaluated By Hospitalist Referrals Hakan Samano M.D. (PCP) Patient Instructions My [facility] Problem Qualifiers Additional Impression: Pneumonia Pneumonia type: due to unspecified organism Laterality: unspecified laterality Lung location: unspecified part of lung Qualified Codes: J18.9 - Pneumonia, unspecified organism
--- NOTE | 2018-01-11 12:57 | DIAGNOSTIC IMAGING REPORT ---
CHEST ONE VIEW PORTABLE HISTORY: Pt c/o short of breath. COMPARISON: Chest 12/11/2017. FINDINGS: The heart remains top normal in size. Mild diffuse interstitial thickening which is likely chronic. Emphysema. No pneumothorax. Stable blunting of the right lateral costophrenic sulcus consistent with a trace pleural effusion. Patchy airspace opacities within the right lung base have slightly progressed. IMPRESSION: 1. Slight progression of the patchy airspace opacities within the right lung base. This may represent progressive pneumonia. 2. Trace right pleural effusion, unchanged. 3. Emphysema. Electronically signed by: Tino Kirby M.D. 01/11/2018 12:56 PM Dictated Date/Time: 01/11/2018 12:50 PM
[2018-01-11 12:59] LABS: BASO % 0.3 %; BASO ABS # 0.02 K/uL (0-0.2); EOS % 2.3 %; EOS ABS # 0.18 K/uL (0-0.5); HEMATOCRIT 32.7 % (37-47); HEMOGLOBIN 9.2 g/dL (12.0-16.0); IG# 0.02 K/uL (0.00-0.02); LYMPH % 9.6 %; LYMPH ABS # 0.74 K/uL (1.2-3.4); MEAN CELL VOLUME 108.3 fL (80-100); MEAN CORPUSCULAR HEMOGLOBIN 30.5 pg (25-34); MEAN CORPUSCULAR HGB CONC 28.1 g/dl (32-36); MEAN PLATELET VOLUME 9.4 fL (7.4-10.4); MONO % 5.3 %; MONO ABS # 0.41 K/uL (0.11-0.59); NEUT % 82.2 %; NEUT ABS # 6.35 K/uL (1.4-6.5); PLATELET COUNT 166 K/uL (130-400); RED CELL DISTRIBUTION WIDTH CV 15.1 % (11.5-14.5); RED CELL DISTRIBUTION WIDTH SD 59.4 fL (36.4-46.3); WHITE BLOOD COUNT 7.72 K/uL (4.8-10.8)
[2018-01-11] MEDS ORDERED: FOLI1TAB8 PO (13:04)
[2018-01-11] MEDS ORDERED: TORS20TA3 PO (13:04)
[2018-01-11] MEDS ORDERED: ASPI81CH PO (13:04)
[2018-01-11] MEDS ORDERED: CITA10TA8 PO (13:04)
[2018-01-11] MEDS ORDERED: ROSU20TA PO (13:04)
[2018-01-11] MEDS ORDERED: SLFEC500 PO (13:04)
[2018-01-11] MEDS ORDERED: DLR500 PO (13:04)
[2018-01-11] MEDS ORDERED: IRON1TAB11 PO (13:04)
[2018-01-11] MEDS ORDERED: MULT60CA PO (13:04)
[2018-01-11] MEDS ORDERED: KFL/250 PO (13:04)
[2018-01-11] MEDS ORDERED: CARV6.252 PO (13:04)
[2018-01-11] MEDS ORDERED: SITA25TA PO (13:04)
[2018-01-11] MEDS ORDERED: ZINC50TA3 PO (13:04)
[2018-01-11] MEDS ORDERED: LEVO75TA5 PO (13:04)
[2018-01-11] MEDS ORDERED: ATRIN INH (13:04)
[2018-01-11] MEDS ORDERED: CYAN10005 PO (13:04)
[2018-01-11 13:12] LABS: ALBUMIN 2.8 gm/dl (3.4-5.0); CALCIUM 8.9 mg/dl (8.5-10.1); CKMB 1.9 ng/ml (0.5-3.6); CREATININE 1.59 mg/dl (0.60-1.20); POTASSIUM 3.9 mmol/L (3.5-5.1); TOTAL PROTEIN 7.6 gm/dl (6.4-8.2)
[2018-01-11] MEDS ORDERED: SODIUM CHLORIDE 0.9% 500ML 500 ML IV STA (13:24)
[2018-01-11] MEDS ORDERED: VANCOMYCIN IV 1,000 MG in SODIUM CHLORIDE 0.9% 250ML 250 ML IV STA (13:24)
[2018-01-11] MEDS ORDERED: DOXYCYCLINE IV 100 MG in DEXTROSE 5% 100ML 100 ML IV STA (13:24)
[2018-01-11] MEDS ORDERED: PIPERACILLIN/TAZOBACTAM 4.5 GM/100ML D5W IV STA (13:24)
[2018-01-11] MEDS ORDERED: VANCOMYCIN CONSULT ACTIVE PRN (13:30)
[2018-01-11] MEDS ORDERED: ONDANSETRON INJ 2 MG/ML 2 ML VIAL IV PRN (14:45)
[2018-01-11] MEDS ORDERED: ACETAMINOPHEN 325 MG TAB PO PRN (14:45)
[2018-01-11] MEDS ORDERED: IPRA-64 INH (15:27)
[2018-01-11] MEDS ORDERED: FERR1TAB13 PO (15:27)
[2018-01-11] MEDS ORDERED: SYMIN160 INH (15:27)
[2018-01-11] MEDS ORDERED: EPGI10M SQ (15:27)
[2018-01-11] MEDS ORDERED: IV FLUIDS COMPLETED PRN (16:15)
--- NOTE | 2018-01-11 16:18 | History and Physical ---
History & Physical Date & Time of Service: Jan 11, 2018 ~ 1415 Chief Complaint: Chest pain, shortness of breath, dizziness Primary Care Physician: Hakan Samano M.D. History of Present Illness 77-year-old female who presents the ED with chest pain, shortness of breath, dizziness. Patient reports that she did not feel well whenever she woke up this morning. When she got up out of bed she reports she felt very dizzy and then developed a midsternal chest pain and felt very short of breath. She then called her daughter who noted she was having a hard time breathing. She uses nebulizer treatment at home however did not notice much change in her symptoms. EMS was then called the patient was given 4 baby aspirin which she reports improved her pain. Patient reports the chest discomfort is located midsternally and she describes as a pressure. No radiation of the pain into the jaw, neck, shoulder, arm. She has a very severe COPD and chronically wears 4 L of oxygen. She has a chronic cough that is productive for green/yellow sputum at times. There has been no change in this. She denies fevers and chills. No syncopal events. She denies abdominal pain, nausea, vomiting. She has a colostomy and denies changes in output. No urinary symptoms. In the ED, patient is saturating well on her chronic 4 L of oxygen. Chest x-ray suggests a possible right basilar pneumonia. In the ED, she was given IVF, nebulizer treatment, IV Zosyn, IV vancomycin, and IV doxycycline. Past Medical/Surgical History Medical Problems: (1) Anemia of chronic disease Status: Chronic (2) Asthma, allergic Status: Chronic (3) Benign hypertension Status: Chronic (4) Carotid stenosis, bilateral Permanent Comment: Carotid duplex 10/18/13- likely 70-99% stenosis both ICA Status: Chronic (5) Chronic obstructive lung disease Permanent Comment: Very Severe, on home O2 4L continuous Status: Chronic (6) CKD (chronic kidney disease), stage III Status: Chronic (7) Coronary artery disease Permanent Comment: S/p cath 2007- distal RCA 95% blockage corrected with balloon angioplasty, repeat cath June 2009 showed no significant obstructive disease. Status: Chronic (8) Crohn s disease Permanent Comment: s/p colostomy Status: Chronic (9) Diabetes mellitus type 2 Status: Chronic (10) Diastolic CHF Status: Chronic (11) Dyslipidemia Status: Chronic (12) Encounter for removal of vascular catheter Status: Resolved (13) Generalized anxiety disorder Status: Chronic (14) History of PSVT (paroxysmal supraventricular tachycardia) Status: Chronic (15) Hypothyroidism Status: Chronic (16) Osteoporosis Status: Chronic (17) Peristomal hernia Permanent Comment: s/p repair in 2009 and 2012 at [facility] [place] Status: Chronic (18) Small bowel obstruction Status: Resolved Surgical Problems: (1) Hernia repair Permanent Comment: 2009 and 2012 at [facility] [place] Status: Chronic (2) History of carpal tunnel surgery of right wrist Status: Chronic (3) History of colostomy Permanent Comment: [facility] [place] for Crohn's disease, 1999 Status: Chronic (4) S/P appendectomy Status: Chronic (5) S/P cardiac cath Permanent Comment: 2007- Distal RCA 95% blockage corrected with balloon angioplasty. Repeat cath June 2009 showed no significant obstructive disease. Status: Chronic (6) S/P hysterectomy Status: Chronic (7) S/P tonsillectomy and adenoidectomy Status: Chronic Family History FH: lung cancer SISTER Social History Smoking Status: Former Smoker Alcohol Use: none Immunizations History of Influenza Vaccine: Yes Influenza Vaccine Date: Mar 16, 2017 History of Tetanus Vaccine?: Yes Tetanus Immunization Date: Nov 30, 2007 History of Pneumococcal: Yes Pneumococcal Date: Jul 17, 2014 Allergies Coded Allergies: Levofloxacin (Verified Allergy, Unknown, Arm itching after infusion finished, 01/11/18) Home Medications Scheduled Aspirin ([place] Low Dose Aspiri), 81 MG PO DAILY Budesonide/Formoterol Fumarate (Symbicort 160/4.5 Inhaler), 2 PUFFS INH BID Carvedilol (Coreg), 6.25 MG PO BIDM Cephalexin Monohydrate (Keflex), 250 MG PO BID Citalopram Hydrobromide (Celexa), 10 MG PO DAILY Cyanocobalamin (Vitamin B-12), 1,000 MCG PO DAILY Epoetin Zeke (Procrit), 1 DOSE SQ every 2 weeks Ferrous Sulfate (Kp Ferrous Sulfate), 1 TAB PO DAILY Folic Acid (Folvite), 1 MG PO DAILY Ipratropium Potter (Atrovent Hfa), 2 PUFFS INH QID Ipratropium-Albuterol (Duoneb), 1 TREATMENT INH QID Levothyroxine Sodium (Levothyroxine Sodium), 75 MCG PO DAILY Multiple Vitamins W/ Minerals (Preservision Areds 2), 1 CAP PO DAILY Roflumilast (Daliresp), 500 MCG PO DAILY Rosuvastatin Calcium (Crestor), 20 MG PO DAILY Sitagliptin Phosphate (Januvia), 25 MG PO DAILY Sulfasalazine (Sulfasalazine), 1,000 MG PO TID Zinc (Zinc), 50 MG PO DAILY Scheduled PRN Torsemide (Torsemide), 20-40 MG PO DAILY PRN for EDEMA Review of Systems ROS per HPI, all other systems reviewed and negative Physical Exam Vital Signs Date Time Temp Pulse Resp B/P (MAP) Pulse Ox O2 Delivery O2 Flow Rate FiO2 01/11/18 14:40 95 18 143/59 99 Nasal Cannula 4.0 01/11/18 14:05 98 18 172/70 100 Room Air 01/11/18 12:20 102 01/11/18 12:15 97 Nasal Cannula 4.0 01/11/18 12:15 97 Nasal Cannula 4.0 01/11/18 12:15 36.7 99 20 123/59 97 Nasal Cannula 4.0 01/11/18 12:15 97 Nasal Cannula 4.0 General Appearance: WD/WN, no apparent distress Head: normocephalic, atraumatic Eyes: normal inspection, EOMI, sclerae normal ENT: hearing grossly normal, + pertinent finding (Mucous membranes moist) Neck: supple, no JVD, trachea midline Respiratory/Chest: no respiratory distress, + decreased breath sounds (Poor air entry noted throughout all lung loera) Cardiovascular: regular rate, rhythm, no edema, normal peripheral pulses Abdomen/GI: normal bowel sounds, non tender, soft, no organomegaly, + pertinent finding (Colostomy in place) Extremities/Musculoskelatal: normal inspection, no calf tenderness, normal capillary refill Neurologic/Psych: no motor/sensory deficits, alert, normal mood/affect, oriented x 3 Skin: normal color, warm/dry, + pertinent finding (Wound noted to right anterior martinez with some mild surrounding erythema) Diagnostics Laboratory Results Results Past 24 Hours Test 01/11/18 12:24 Range/Units White Blood Count 7.72 4.8-10.8 K/uL Red Blood Count 3.02 4.2-5.4 M/uL Hemoglobin 9.2 12.0-16.0 g/dL Hematocrit 32.7 37-47 % Mean Corpuscular Volume 108.3 80-100 fL Mean Corpuscular Hemoglobin 30.5 25-34 pg Mean Corpuscular Hemoglobin Concent 28.1 32-36 g/dl Platelet Count 166 130-400 K/uL Mean Platelet Volume 9.4 7.4-10.4 fL Neutrophils (%) (Auto) 82.2 % Lymphocytes (%) (Auto) 9.6 % Monocytes (%) (Auto) 5.3 % Eosinophils (%) (Auto) 2.3 % Basophils (%) (Auto) 0.3 % Neutrophils # (Auto) 6.35 1.4-6.5 K/uL Lymphocytes # (Auto) 0.74 1.2-3.4 K/uL Monocytes # (Auto) 0.41 0.11-0.59 K/uL Eosinophils # (Auto) 0.18 0-0.5 K/uL Basophils # (Auto) 0.02 0-0.2 K/uL RDW Standard Deviation 59.4 36.4-46.3 fL RDW Coefficient of Variation 15.1 11.5-14.5 % Immature Granulocyte % (Auto) 0.3 % Immature Granulocyte # (Auto) 0.02 0.00-0.02 K/uL Sodium Level 141 136-145 mmol/L Potassium Level 3.9 3.5-5.1 mmol/L Chloride Level 96 98-107 mmol/L Carbon Dioxide Level 42 21-32 mmol/L Anion Gap 3.0 3-11 mmol/L Blood Urea Nitrogen 15 7-18 mg/dl Creatinine 1.59 0.60-1.20 mg/dl Est Creatinine Clear Calc Drug Dose 26.8 ml/min Estimated GFR () 35.4 Estimated GFR (Non- 30.6 BUN/Creatinine Ratio 9.2 10-20 Random Glucose 138 70-99 mg/dl Calcium Level 8.9 8.5-10.1 mg/dl Total Bilirubin 0.2 0.2-1 mg/dl Aspartate Amino Transf (AST/SGOT) 18 15-37 U/L Alanine Aminotransferase (ALT/SGPT) 12 12-78 U/L Alkaline Phosphatase 79 45-117 U/L Total Creatine Kinase 43 26-192 U/L Creatine Kinase MB 1.9 0.5-3.6 ng/ml Creatine Kinase MB Ratio 4.4 0-3.0 Troponin I 0.034 0-0.045 ng/ml Pro-B-Type Natriuretic Peptide 1416 0-1800 pg/ml Total Protein 7.6 6.4-8.2 gm/dl Albumin 2.8 3.4-5.0 gm/dl Globulin 4.8 2.5-4.0 gm/dl Albumin/Globulin Ratio 0.6 0.9-2 Microbiology Results 01/11/18 Blood Culture, Received Pending 01/11/18 Blood Culture, Received Pending Diagnostic Radiology CXR IMPRESSION: 1. Slight progression of the patchy airspace opacities within the right lung base. This may represent progressive pneumonia. 2. Trace right pleural effusion, unchanged. 3. Emphysema. Impression Assessment and Plan CHEST PAIN, SHORTNESS OF BREATH, DIZZINESS POSSIBLE PNEUMONIA HISTORY OF VERY SEVERE COPD, CHRONIC CO2 RETENTION HISTORY OF CAD -Admit to telemetry -Patient presenting from home with reports of chest pain, shortness of breath, dizziness that began this morning -In the ED, chest x-ray suggesting a right basilar pneumonia however patient is currently afebrile, no leukocytosis, no change in sputum production -S/P IV vancomycin, IV Zosyn, IV doxycycline in the ED; will change to Unasyn going forward to also cover right lower extremity wound and consider aspiration due to the location of the opacity in the right base -Speech evaluation -Currently no wheezing on exam, saturating well on chronic 4 L; will give prednisone 40 mg x 5 days -[id number] nebulizers, continue inhaled corticosteroid -Elevated d-dimer, will check V/Q and lower extremity Dopplers -Due to reports of dizziness, will check orthostatic BPs -Patient likely will need cardiac workup as well; has history of CAD however has not followed routinely with cardiology -Initial troponin negative, EKG without acute ST changes -Continue to cycle cardiac enzymes; had recent echocardiogram October 2017 will defer repeat cardiology -Continue aspirin, statin, beta-catalina -Cardiology consult RIGHT MARTINEZ WOUND -Was started on cephalexin as an outpatient on 01/09 -Getting Unasyn as above -Wound care consult CHRONIC DIASTOLIC CHF -Appears euvolemic -Does not take routine diuretics DM TYPE II -Hgb A1c 6.0 07/2017 -Oral agents and utilize NovoLog per protocol while hospitalized CHRONIC ANEMIA -Due to CKD, currently receiving Procrit injections and oral iron replacement -Hemoglobin at baseline CROHN'S DISEASE -Continue sulfasalazine HYPOTHYROIDISM -Continue levothyroxine DVT PROPHYLAXIS -SQ heparin CODE STATUS -Patient is a full code as per my discussion with her. DISPOSITION -In my clinical judgment this beneficiary meets acute admission criteria, established by [facility], that includes being hospitalized through two midnights. Attending addendum: The patient was seen and examined in emergency room She has multiple medical problems including severe COPD on oxygen and CAD status post stenting past was brought to ER with the chest pain/pressure since yesterday She denies to have any increasing shortness of breath, any nausea and/or vomiting associated with it. 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 May have angina equivalent-cardiology consulted for further evaluation We will give short course of steroid and antibiotic Rule out pulmonary embolism Agree with assessment and plan as outlined above Dr. Lucina Fisher Resuscitation Status VTE Prophylaxis Will order VTE Prophylaxis: Yes
[2018-01-11] MEDS ORDERED: CARBOHYDRATES FOR HYPOGLYCEMIA PO PRN (16:30)
[2018-01-11] MEDS ORDERED: GLUCOSE 40% GEL 15 GM TUBE PO PRN (16:30)
[2018-01-11] MEDS ORDERED: GLUCOSE 10 TABS/TUBE PO PRN (16:30)
[2018-01-11] MEDS ORDERED: GLUCAGON FOR INJ 1 MG VIAL SQ PRN (16:30)
[2018-01-11] MEDS ORDERED: DEXTROSE 50% 50 ML SYR IV PRN (16:30)
[2018-01-11 16:56] LABS: PTT PATIENT 25.7 SECONDS (21.0-31.0)
[2018-01-11] MEDS: CARVEDILOL 6.25 MG TAB PO SCH (18:13)
--- NOTE | 2018-01-11 18:23 | CARDIOLOGY CONSULTATION ---
DATE OF CONSULTATION: 01/11/2018 REASON FOR CONSULTATION: Shortness of breath, chest pressure. HISTORY OF PRESENT ILLNESS: Ms. Hardwick is a 77-year-old female with complex medical history listed below. Most recent hospitalization in early December for symptomatic anemia and hemoglobin of 6.6. She received 2 units of packed red blood cells during that admission. Anemia attributed to chronic disease and renal dysfunction. She is currently treated with IV iron and Procrit. This morning she awoke at approximately 8:30 a.m. and developed chest tightness. She became short of breath acutely. After approximately 15 minutes, the patient began utilizing her home nebulizer and summoned EMS. She received additional nebulizer treatment en route to the ER, was feeling somewhat better upon arrival. The patient also treated with 4 baby aspirin. Initial chest x-ray demonstrates a right lower lobe infiltrate. There is no elevated white blood cell count or fevers noted. The patient denies any change in chronic cough with yellow sputum production. Carries a history of oxygen-dependent COPD. From a cardiac perspective, she has had prior RCA stenting. The patient does not use any sublingual nitroglycerin recently. Currently, she is pain free. Remains in sinus rhythm on telemetry. Initial ECG demonstrates sinus rhythm without significant ST changes. Resting 2D transthoracic echocardiogram is pending. Initial set of cardiac enzymes are negative. REVIEW OF SYSTEMS: The pertinent positive noted above, a comprehensive 10-system review is otherwise negative. PAST MEDICAL HISTORY: 1. Chronic coronary artery disease, status post bare metal stenting to the right coronary artery, 2007 in the setting of myocardial infarction. 2. Followup catheterization performed in 2009 demonstrating patent RCA stents in [place]. 3. Severe chronic obstructive pulmonary disease, on home oxygen. 4. Diabetes type 2. 5. Paroxysmal supraventricular tachycardia. 6. Crohn's disease with recurrent small-bowel obstruction status post ileostomy placement. 7. Diastolic heart failure. 8. Chronic kidney disease stage III. 9. Osteoporosis. 10. Significant bilateral carotid stenosis - chronic. 11. Hypothyroidism. 12. Anemia of chronic disease. 13. Parastomal hernia. PAST SURGICAL HISTORY: 1. Cardiac catheterization x3 with prior bare metal stenting of the right coronary artery. 2. Hernia repair. 3. Carpal tunnel surgery. 4. Colostomy. 5. Hysterectomy. 6. Tonsillectomy. 7. Exploratory laparotomy in 2014. FAMILY HISTORY: Negative for premature CAD or sudden cardiac , however, noncontributory given the patient's advanced age. SOCIAL HISTORY: Former tobacco abuse, quitting in 2007 with a greater than [id number] history. Is and lives with her family. ALLERGIES: LEVOFLOXACIN. HOME MEDICATIONS: 1. Aspirin 81 mg daily. 2. Symbicort 160/4.5 two puffs twice daily. 3. Carvedilol 6.25 mg twice daily. 4. Keflex 250 mg twice daily. 5. Celexa 10 mg daily. 6. Vitamin B12 daily. 7. Procrit every 2 weeks. 8. Ferrous sulfate daily - patient not taking. 9. Folic acid 1 mg daily. 10. Atrovent 2 puffs q.i.d. 11. DuoNeb 1 treatment q.i.d. 12. Synthroid 75 mcg daily. 13. Multivitamin daily. 15. Daliresp 500 mcg daily. 14. Crestor 20 mg daily. 15. Januvia 25 mg daily. 16. Sulfasalazine 1000 mg t.i.d. 17. Zinc 50 mg daily. 18. Torsemide 20-40 mg daily as needed for edema. LABORATORY DATA: Sodium 141, potassium 3.8, chloride 96, CO2 42, BUN is 15, creatinine is 1.59. Initial CK 43, CK-MB 1.9. Troponin is 0.034. ProBNP 1416. White blood cell count 7.72, hemoglobin is 9.2, platelet count is 166. INR is 1.0. D-dimer 1120. PHYSICAL EXAMINATION: VITAL SIGNS: Temperature is 36.5 degrees centigrade, pulse is 92 beats per minute and regular, respiratory rate is 20 breaths per minute, blood pressure 129/64, SAO2 is 91% on 4 L nasal cannula. GENERAL: Chronically ill, too thin, awake, alert and oriented x3. HEENT: Mucous membranes are dry. No scleral icterus. Conjunctivae pink. NECK: Supple without JVD or HJR. No carotid bruits appreciated. HEART: Regular with a normal S1 and S2. There is no murmur, rub or gallop. LUNGS: Demonstrate diminished breath sounds with scant crackles at the bases bilaterally. There is no wheeze. Scattered rhonchi are noted. ABDOMEN: Soft, mildly distended, ileostomy bag noted. No rebound or guarding. EXTREMITIES: Warm and dry. There is no clubbing, cyanosis, or edema. NEUROLOGIC: Demonstrates no focal motor deficit. FINAL IMPRESSION: 1. A 77-year-old female admitted with acute shortness of breath, chest pressure with chest x-ray evidence of lower lobe pneumonia. Underlying cardiac pathology not excluded with history of right coronary artery stenting in the past. Initial ECG and cardiac enzymes unremarkable. 2. Severe underlying chronic obstructive pulmonary disease, on home oxygen. 3. Anemia of chronic disease - hemoglobin improving with recent hospitalization requiring transfusion 12/2017. 4. Right anterior tibial wound. PLAN AND RECOMMENDATIONS: Cardiac enzymes will be trended x3 sets. I will repeat a resting 2D transthoracic echocardiogram to exclude the presence of regional wall motion abnormalities. Continue telemetry monitoring during hospitalization. Repeat ECG with any recurrent chest tightness or heaviness. Consider transition of carvedilol to beta selective beta-catalina during hospitalization given severe underlying COPD. Continue aspirin, statin therapy as previously ordered. Antibiotics, nebulizer treatments. and COPD management as per internal medicine. Thank you for allowing me to participate in the care of your patient. I will continue to follow along during hospitalization.
[2018-01-11] MEDS: ALBUT/IPRATROP 3MG/0.5MG NEB 3 ML VIAL INH SCH (19:24)
[2018-01-11] MEDS: INSULIN ASPART 100 UNITS/ML 3 ML PEN SC SCH (21:00)
--- NOTE | 2018-01-11 21:20 | DIAGNOSTIC IMAGING REPORT ---
ULTRASOUND BILATERAL LOWER EXTREMITY VENOUS CLINICAL HISTORY: Right calf pain. COMPARISON STUDY: Bilateral lower extremity venous ultrasound dated 06/11/2012. TECHNIQUE: Real-time, grayscale, and color Doppler sonography of the deep veins of the right and left lower extremity was performed from the inguinal crease to the calf. Compression and augmentation were utilized. FINDINGS: There is no sonographic evidence of deep venous thrombosis identified in the right or left lower extremity. The common femoral, superficial femoral, and popliteal veins are patent and normally compressible bilaterally. The greater saphenous vein and the profunda femoris vein at the junction with the common femoral vein are clear in both legs. The visualized calf veins are patent bilaterally. IMPRESSION: There is no sonographic evidence of deep venous thrombosis identified in the right or left lower extremity. Electronically signed by: Pedrito Pacheco M.D. 01/11/2018 9:19 PM Dictated Date/Time: 01/11/2018 9:19 PM
[2018-01-11] MEDS: AMPICILLIN/SULBACTAM SOD INJ 3,000 MG in SODIUM CHLORIDE 0.9% 100ML 100 ML IV SCH (21:34)
[2018-01-11] MEDS: BUDESONIDE/FORMOTEROL FUMARATE 160/4.5 60 PUFFS/INHALER INH SCH (21:34)
[2018-01-11] MEDS: SULFASALAZINE 500 MG TABEC PO SCH (21:35)
[2018-01-11] MEDS: HEPARIN SOD 5000 UNIT/0.5 ML CARP SQ SCH (21:36)
[2018-01-12] VITALS (14 sets, daily range): BP systolic 104–167; BP diastolic 47–74; PULSE 77–114; TEMP 36.4–36.9; O2SAT 94–99; Ht 157.5 cm; Wt 69.3 kg
[2018-01-12] MEDS: LEVOTHYROXINE 75 MCG TAB PO SCH (05:44)
[2018-01-12] MEDS: HEPARIN SOD 5000 UNIT/0.5 ML CARP SQ SCH ×3 (05:47→21:47)
[2018-01-12 06:48] LABS: HEMOGLOBIN 8.9 g/dL (12.0-16.0); MEAN CELL VOLUME 106.2 fL (80-100); MEAN CORPUSCULAR HEMOGLOBIN 30.5 pg (25-34); MEAN CORPUSCULAR HGB CONC 28.7 g/dl (32-36); PLATELET COUNT 156 K/uL (130-400); RED CELL DISTRIBUTION WIDTH SD 58.6 fL (36.4-46.3); WHITE BLOOD COUNT 5.26 K/uL (4.8-10.8)
[2018-01-12 07:10] LABS: CALCIUM 8.3 mg/dl (8.5-10.1); CREATININE 1.36 mg/dl (0.60-1.20); POTASSIUM 4.1 mmol/L (3.5-5.1)
[2018-01-12] MEDS: ALBUT/IPRATROP 3MG/0.5MG NEB 3 ML VIAL INH SCH ×4 (07:15→19:45)
[2018-01-12] MEDS: INSULIN ASPART 100 UNITS/ML 3 ML PEN SC SCH ×4 (08:00→21:46)
[2018-01-12] MEDS: CARVEDILOL 6.25 MG TAB PO SCH (08:01)
[2018-01-12] MEDS: ZINC SULFATE 220 MG CAP PO SCH (08:01)
--- NOTE | 2018-01-12 08:02 | DIAGNOSTIC IMAGING REPORT ---
LUNG IMAGING VQ CLINICAL HISTORY: 77 years-old Female presenting with shortness of breath, chest pain, history of emphysema, pneumonia, history of smoking. TECHNIQUE: Immediately following the inhalation of 31.3 mCi of technetium 99 M DTPA for the ventilation scan and the intravenous administration of 5.94 mCi of technetium 99 M MAA for the perfusion scan, anterior, oblique, lateral, and posterior views of the chest were obtained. Modified PIOPED II criteria were utilized for assessment. COMPARISON: Chest x-ray performed earlier the same day. FINDINGS: Significant heterogeneity of ventilation compatible with underlying chronic obstructive pulmonary disease. No mismatched defects are identified on this examination. Perfusion is preserved. Central airway deposition of radiotracer noted on ventilation images. Reference: Modified PIOPED II criteria Normal: No perfusion defects. Very low likelihood ratio: Nonsegmental, perfusion defect < chest x-ray lesion, 1-3 small segmental defects, solitary triple matched defect (< or = 1 segment) in mid or upper lung, stripe sign, solitary large pleural effusion, > or = to 2 matched defects with regionally normal chest x-ray. High likelihood ratio: > or = 2 large mismatch segmental defects. Nondiagnostic: All other findings. IMPRESSION: Normal. Electronically signed by: Shaquille Zhu M.D. 01/12/2018 8:01 AM Dictated Date/Time: 01/12/2018 6:58 AM
[2018-01-12] MEDS: SULFASALAZINE 500 MG TABEC PO SCH ×3 (08:04→21:48)
[2018-01-12] MEDS: ROFLUMILAST 500 MCG TAB PO SCH (08:05)
[2018-01-12] MEDS: CYANOCOBALAMIN 500 MCG TAB (VIT B-12) PO SCH (08:05)
[2018-01-12] MEDS: FERROUS SULFATE 325 MG TAB PO SCH (08:05)
[2018-01-12] MEDS: ROSUVASTATIN CALCIUM 20 MG TAB PO SCH (08:06)
[2018-01-12] MEDS: CITALOPRAM 20 MG TAB PO SCH (08:06)
[2018-01-12] MEDS: CEROVITE ADV FORMULA TAB PO SCH (08:06)
[2018-01-12] MEDS: BUDESONIDE/FORMOTEROL FUMARATE 160/4.5 60 PUFFS/INHALER INH SCH ×2 (08:07→21:49)
[2018-01-12] MEDS: AMPICILLIN/SULBACTAM SOD INJ 3,000 MG in SODIUM CHLORIDE 0.9% 100ML 100 ML IV SCH ×2 (08:25→22:00)
[2018-01-12] MEDS: ASPIRIN 81 MG ECTAB PO SCH (09:30)
--- NOTE | 2018-01-12 12:31 | Progress Note ---
Internal Med Progress Note Date of Service: Jan 12, 2018. Provider Documentation: SUBJECTIVE: The patient was seen and examined in telemetry floor She has history of CAD status post stent, COPD on oxygen and was admitted yesterday with chest pain Denies any chest pain but complains to have dizziness on standing and on ambulation OBJECTIVE: Vital Signs-as noted below Exam: General-no apparent distress at rest Eyes-normal ENT-normal Neck-supple, neck movements does not produce any dizziness Lungs-decreased breath sounds bilaterally with minimal wheezing Heart-regular, no murmur appreciated Abdomen-soft, benign, nontender Extremities-trace edema bilaterally Neuro-alert, awake and oriented 3 Generally weak but no focal neuro deficit Lab data as noted below. ASSESSMENT & PLAN: CHEST PAIN, SHORTNESS OF BREATH, DIZZINESS HISTORY OF CAD -Patient presenting from home with reports of chest pain, shortness of breath, dizziness that began this morning -Initial troponin negative, EKG without acute ST changes -Continue to cycle cardiac enzymes;-negative for any ACS -ECHO pending -Continue aspirin, statin, beta-catalina -Cardiology consult-appreciate input Dizziness -likely secondary to dehydration with low BP -Due to reports of dizziness, will check orthostatic BPs -Positive Orthostasis -try more fluid orally POSSIBLE PNEUMONIA HISTORY OF VERY SEVERE COPD, CHRONIC CO2 RETENTION --Received IV vancomycin, IV Zosyn, IV doxycycline in the ED -Currently no wheezing on exam, saturating well on chronic 4 L; will give prednisone 40 mg x 5 days -Ulatdb-exx-dytme nebulizers, continue inhaled corticosteroid -Elevated d-dimer, will check V/Q and lower extremity Dopplers-Negative VQ scan -Continue IV Unasyn for now RIGHT KIDD WOUND -Was started on cephalexin as an outpatient on 01/09 -Getting Unasyn as above -Wound care consult CHRONIC DIASTOLIC CHF -Appears euvolemic -Does not take routine diuretics DM TYPE II -Hgb A1c 6.0 07/2017 -Oral agents and utilize NovoLog per protocol while hospitalized CHRONIC ANEMIA -Due to CKD, currently receiving Procrit injections and oral iron replacement -Hemoglobin at baseline CROHN'S DISEASE -Continue sulfasalazine HYPOTHYROIDISM -Continue levothyroxine DVT PROPHYLAXIS -SQ heparin CODE STATUS -Patient is a full code as per my discussion with her. DISPOSITION Vital Signs: Date Time Temp Pulse Resp B/P (MAP) Pulse Ox O2 Delivery O2 Flow Rate FiO2 01/12/18 11:41 36.9 97 20 138/61 (86) 98 Room Air 01/12/18 11:14 97 18 99 Nasal Cannula 4.0 01/12/18 08:00 Nasal Cannula 4.0 01/12/18 08:00 105 156/64 (94) 114 120/60 (80) 105 104/47 (66) 01/12/18 07:19 36.4 102 18 155/70 (98) 98 Nasal Cannula 4.0 01/12/18 07:16 102 18 98 Nasal Cannula 4.0 01/12/18 05:13 36.5 98 19 152/69 (96) 97 Nasal Cannula 4.0 01/12/18 00:00 Nasal Cannula 4.0 01/11/18 23:53 36.5 97 18 161/67 (98) 91 Nasal Cannula 4.0 01/11/18 20:00 36.6 85 19 131/69 (89) 97 Nasal Cannula 4.0 01/11/18 19:50 91 Nasal Cannula 4.0 01/11/18 19:28 96 18 100 Nasal Cannula 4.0 01/11/18 18:29 93 142/ (47) 92 131/67 (88) 96 137/66 (89) 01/11/18 18:11 93 142/60 (87) 100 Nasal Cannula 01/11/18 16:25 36.5 92 18 129/64 (85) 91 Nasal Cannula 4.0 01/11/18 15:58 92 18 138/57 95 01/11/18 15:50 91 Nasal Cannula 4.0 01/11/18 14:40 95 18 143/59 99 Nasal Cannula 4.0 01/11/18 14:05 98 18 172/70 100 Room Air Lab Results: Results Past 24 Hours Test 01/11/18 12:24 01/11/18 16:51 01/11/18 17:59 01/11/18 18:30 Range/Units White Blood Count 7.72 4.8-10.8 K/uL Red Blood Count 3.02 4.2-5.4 M/uL Hemoglobin 9.2 12.0-16.0 g/dL Hematocrit 32.7 37-47 % Mean Corpuscular Volume 108.3 80-100 fL Mean Corpuscular Hemoglobin 30.5 25-34 pg Mean Corpuscular Hemoglobin Concent 28.1 32-36 g/dl Platelet Count 166 130-400 K/uL Mean Platelet Volume 9.4 7.4-10.4 fL Neutrophils (%) (Auto) 82.2 % Lymphocytes (%) (Auto) 9.6 % Monocytes (%) (Auto) 5.3 % Eosinophils (%) (Auto) 2.3 % Basophils (%) (Auto) 0.3 % Neutrophils # (Auto) 6.35 1.4-6.5 K/uL Lymphocytes # (Auto) 0.74 1.2-3.4 K/uL Monocytes # (Auto) 0.41 0.11-0.59 K/uL Eosinophils # (Auto) 0.18 0-0.5 K/uL Basophils # (Auto) 0.02 0-0.2 K/uL RDW Standard Deviation 59.4 36.4-46.3 fL RDW Coefficient of Variation 15.1 11.5-14.5 % Immature Granulocyte % (Auto) 0.3 % Immature Granulocyte # (Auto) 0.02 0.00-0.02 K/uL Prothrombin Time 10.7 9.0-12.0 SECONDS Prothromb Time International Ratio 1.0 0.9-1.1 Activated Partial Thromboplast Time 25.7 21.0-31.0 SECONDS Partial Thromboplastin Ratio 1.0 D-Dimer 1120 0-500 ug/L FEU Sodium Level 141 136-145 mmol/L Potassium Level 3.9 3.5-5.1 mmol/L Chloride Level 96 98-107 mmol/L Carbon Dioxide Level 42 21-32 mmol/L Anion Gap 3.0 3-11 mmol/L Blood Urea Nitrogen 15 7-18 mg/dl Creatinine 1.59 0.60-1.20 mg/dl Est Creatinine Clear Calc Drug Dose 26.8 ml/min Estimated GFR () 35.4 Estimated GFR (Non- 30.6 BUN/Creatinine Ratio 9.2 10-20 Random Glucose 138 70-99 mg/dl Calcium Level 8.9 8.5-10.1 mg/dl Total Bilirubin 0.2 0.2-1 mg/dl Aspartate Amino Transf (AST/SGOT) 18 15-37 U/L Alanine Aminotransferase (ALT/SGPT) 12 12-78 U/L Alkaline Phosphatase 79 45-117 U/L Total Creatine Kinase 43 26-192 U/L Creatine Kinase MB 1.9 0.5-3.6 ng/ml Creatine Kinase MB Ratio 4.4 0-3.0 Troponin I 0.034 0.053 0-0.045 ng/ml Pro-B-Type Natriuretic Peptide 1416 0-1800 pg/ml Total Protein 7.6 6.4-8.2 gm/dl Albumin 2.8 3.4-5.0 gm/dl Globulin 4.8 2.5-4.0 gm/dl Albumin/Globulin Ratio 0.6 0.9-2 Bedside Glucose 124 70-90 mg/dl Urine Color YELLOW Urine Appearance CLOUDY CLEAR Urine pH 5.0 4.5-7.5 Urine Specific Carbon 1.023 1.000-1.030 Urine Protein 2+ NEG Urine Glucose (UA) NEG NEG Urine Ketones NEG NEG Urine Occult Blood NEG NEG Urine Nitrite NEG NEG Urine Bilirubin NEG NEG Urine Urobilinogen NEG NEG Urine Leukocyte Esterase NEG NEG Urine WBC (Auto) 1-5 0-5 /hpf Urine RBC (Auto) 0-4 0-4 /hpf Urine Hyaline Casts (Auto) 5-10 0-5 /lpf Urine Epithelial Cells (Auto) >30 0-5 /lpf Urine Bacteria (Auto) NEG NEG Urine Yeast (Auto) NONE PRSENT Test 01/11/18 20:21 01/11/18 22:26 01/12/18 05:54 01/12/18 07:29 Range/Units Bedside Glucose 122 127 70-90 mg/dl Troponin I 0.039 0-0.045 ng/ml White Blood Count 5.26 4.8-10.8 K/uL Red Blood Count 2.92 4.2-5.4 M/uL Hemoglobin 8.9 12.0-16.0 g/dL Hematocrit 31.0 37-47 % Mean Corpuscular Volume 106.2 80-100 fL Mean Corpuscular Hemoglobin 30.5 25-34 pg Mean Corpuscular Hemoglobin Concent 28.7 32-36 g/dl RDW Standard Deviation 58.6 36.4-46.3 fL RDW Coefficient of Variation 15.0 11.5-14.5 % Platelet Count 156 130-400 K/uL Mean Platelet Volume 10.0 7.4-10.4 fL Sodium Level 139 136-145 mmol/L Potassium Level 4.1 3.5-5.1 mmol/L Chloride Level 99 98-107 mmol/L Carbon Dioxide Level 36 21-32 mmol/L Anion Gap 4.0 3-11 mmol/L Blood Urea Nitrogen 14 7-18 mg/dl Creatinine 1.36 0.60-1.20 mg/dl Est Creatinine Clear Calc Drug Dose 30.7 ml/min Estimated GFR () 42.8 Estimated GFR (Non- 36.9 BUN/Creatinine Ratio 10.2 10-20 Random Glucose 127 70-99 mg/dl Calcium Level 8.3 8.5-10.1 mg/dl Chemistry Specimen Hemolysis Test 01/12/18 11:55 Range/Units Bedside Glucose 108 70-90 mg/dl Microbiology Results 01/11/18 Blood Culture, Received Pending 01/11/18 Blood Culture, Received Pending 01/11/18 MRSA DNA Surveillance Screen - Final, Complete Specimen Negative for MRSA by DNA Probe
[2018-01-12] MEDS ORDERED: METOPROLOL TARTRATE 25 MG TAB PO ONE (13:07)
--- NOTE | 2018-01-12 13:08 | Cardiology Follow-Up ---
Subjective General Date of Service: Jan 12, 2018. Pt evaluation today including: conversation w/ patient, conversation w/ family , physical exam, chart review, lab review, review of studies, review of inpatient medication list History of Present Illness The patient is a 77 year old female seen in follow-up. Denies recurrent chest discomfort overnight. Cough improved with scant sputum production. No wheezing. Feeling much better today. Allergies Coded Allergies: Levofloxacin (Verified Allergy, Unknown, Arm itching after infusion finished, 01/11/18) Social History Smoking Status: Former Smoker Hx Tobacco Use In Past Year?: No Hx Alcohol Use - Type And Amou: Yes (occassional wine) Hx Substance Use - Type And Am: No Problem List Medical Problems: (1) Anemia Status: Acute (2) Bilateral lower extremity pain Status: Acute (3) Carbon dioxide narcosis Status: Acute (4) Cervical strain Status: Acute (5) COPD (chronic obstructive pulmonary disease) Status: Acute (6) Dizziness Status: Acute (7) Elevated troponin Status: Acute (8) Fall Status: Acute (9) Fall Status: Acute (10) Fracture of left distal radius Status: Acute (11) Head injury Status: Acute (12) Hypoxia Status: Acute (13) Neck pain Status: Acute (14) Pneumonia Status: Acute (15) Renal insufficiency Status: Acute (16) Respiratory acidosis Status: Acute (17) Right ureteral stone Status: Acute (18) Shortness of breath Status: Acute (19) SOB (shortness of breath) Status: Acute (20) Symptomatic anemia Status: Acute Review of Systems Respiratory: + shortness of breath, + dyspnea on exertion, No cough, No sputum , No wheezing, No dyspnea at rest, No hemoptysis Cardiac: No chest pain, No orthopnea, No PND, No edema, No claudication Physical Exam Vital Signs Last Vital Signs Documentation Date Time Temp Pulse Resp B/P (MAP) Pulse Ox O2 Delivery O2 Flow Rate FiO2 01/12/18 11:41 36.9 97 20 138/61 (86) 98 Room Air 01/12/18 11:14 4.0 Physical Exam Constitutional: General Apperance: too thin Level of Distress: chronically ill Head: normocephalic Neck: supple, trachea midline Lungs: Auscultation: breath sounds normal, no wheezing, no rales/crackles, no rhonchi Cardiovascular: Heart Auscultation: RRR, normal S1, normal S2, no murmurs, tachycardia Peripheral Pulses: Radial Pulse: normal on the right Abdomen: Bowel Sounds: normal Inspection & Palpation: soft, non-distended, no tenderness, guarding & rebound Extremities: no cyanosis, no edema, no clubbing, no ulcers Neurologic: Gait & Station: pertinent finding Cranial Nerves: grossly intact Assessment and Plan Assessment and Plan FINAL IMPRESSION: 1. A 77-year-old female admitted with acute shortness of breath, chest pressure with chest x-ray evidence of lower lobe pneumonia. No significant ECG changes with mild troponin elevation in the setting of chronic kidney disease. 2. Severe underlying chronic obstructive pulmonary disease, on home oxygen. 3. Anemia of chronic disease - hemoglobin improving with recent hospitalization requiring transfusion 12/2017. 4. Right anterior tibial wound. PLAN AND RECOMMENDATIONS: Resting 2D transthoracic echocardiogram results pending at this time. If there are no new regional wall motion on normalities would recommend further risk stratification with dobutamine stress echocardiography when pneumonia has resolved. Transition patient to selective beta-catalina, metoprolol, to improve heart rate control with less potential pulmonary side effects. Continue to follow blood pressure closely. Consider addition of low-dose calcium channel catalina, amlodipine or Cardizem pending heart rate response to beta-catalina therapy. Continue telemetry monitoring at this time. Laboratory Results Last 24 Hours Test 01/11/18 16:51 01/11/18 17:59 01/11/18 18:30 01/11/18 20:21 Bedside Glucose 124 mg/dl 122 mg/dl Troponin I 0.053 ng/ml Urine Color YELLOW Urine Appearance CLOUDY Urine pH 5.0 Urine Specific Umpire 1.023 Urine Protein 2+ Urine Glucose (UA) NEG Urine Ketones NEG Urine Occult Blood NEG Urine Nitrite NEG Urine Bilirubin NEG Urine Urobilinogen NEG Urine Leukocyte Esterase NEG Urine WBC (Auto) 1-5 /hpf Urine RBC (Auto) 0-4 /hpf Urine Hyaline Casts (Auto) 5-10 /lpf Urine Epithelial Cells (Auto) >30 /lpf Urine Bacteria (Auto) NEG Urine Yeast (Auto) Test 01/11/18 22:26 01/12/18 05:54 01/12/18 07:29 01/12/18 11:55 Troponin I 0.039 ng/ml White Blood Count 5.26 K/uL Red Blood Count 2.92 M/uL Hemoglobin 8.9 g/dL Hematocrit 31.0 % Mean Corpuscular Volume 106.2 fL Mean Corpuscular Hemoglobin 30.5 pg Mean Corpuscular Hemoglobin Concent 28.7 g/dl RDW Standard Deviation 58.6 fL RDW Coefficient of Variation 15.0 % Platelet Count 156 K/uL Mean Platelet Volume 10.0 fL Sodium Level 139 mmol/L Potassium Level 4.1 mmol/L Chloride Level 99 mmol/L Carbon Dioxide Level 36 mmol/L Anion Gap 4.0 mmol/L Blood Urea Nitrogen 14 mg/dl Creatinine 1.36 mg/dl Est Creatinine Clear Calc Drug Dose 30.7 ml/min Estimated GFR () 42.8 Estimated GFR (Non- 36.9 BUN/Creatinine Ratio 10.2 Random Glucose 127 mg/dl Calcium Level 8.3 mg/dl Chemistry Specimen Hemolysis Bedside Glucose 127 mg/dl 108 mg/dl
--- NOTE | 2018-01-12 14:03 | ECHOCARDIOGRAM REPORT ---
*NOTICE TO RECEIVING REPUBLICAN AGENCY This information is strictly Confidential and protected under [place] law. [place] law prohibits you from making any further disclosure of this information unless further disclosure is expressly permitted by the written consent of the person to whom it pertains or is authorized by law. A general authorization for the release of medical or other information is not sufficient for this purpose. Hospital accepts no responsibility if the information is made available to any other person, INCLUDING THE PATIENT. Interpretation Summary * Name: NEFTALI SHORE Study Date: 01/12/2018 01:21 PM BP: 104/47 mmHg * Patient Location: [facility]\S\N282\S\2 HR: 97 * : 1940 (M/d/yy) Gender: Female Height: 62 in * Age: 77 yrs Ethnicity: [place] Weight: 153 lb * Ordering Physician: Acosta García * Referring Physician: Self, Referred * Performed By: Tressa Lo RDCS * * Reason For Study: Chest pain * BSA: 1.7 m2 * Compared to most recent study, left ventricular systolic function has improved. * The study was technically adequate. * -- Conclusions -- * Ejection Fraction = 55-60%. * No regional wall motion abnormalities noted. Procedure Details * A two-dimensional transthoracic echocardiogram was performed. Left Ventricle * There is no thrombus. * There is normal left ventricular wall thickness. * Ejection Fraction = 55-60%. * No regional wall motion abnormalities noted. Right Ventricle * The right ventricular cavity size is normal (basal dimension <4.2 cm in right ventricular apical 4-chamber view). * The right ventricular systolic function is normal. Aortic Valve * Aortic valve sclerosis mild, without significant aortic valvular stenosis. MMode 2D Measurements and Calculations IVSd 0.98 cm LVIDd 5.4 cm LVIDs 3.5 cm LVPWd 0.82 cm IVS/LVPW 1.2 FS 35.2 % EDV(Teich) 141.1 ml ESV(Teich) 50.7 ml EF(Teich) 64.1 % EDV(cubed) 157.2 ml ESV(cubed) 42.7 ml EF(cubed) 72.9 % LV mass(C)d 179.7 grams LV mass(C)dI 105.3 grams/m\S\2 SV(Teich) 90.4 ml SI(Teich) 53.0 ml/m\S\2 SV(cubed) 114.5 ml SI(cubed) 67.1 ml/m\S\2 LVAd ap4 22.5 cm\S\2 LVLd ap4 7.1 cm EDV(MOD-sp4) 60.7 ml EDV(sp4-el) 60.8 ml LVAs ap4 12.2 cm\S\2 LVLs ap4 5.8 cm ESV(MOD-sp4) 23.3 ml ESV(sp4-el) 21.6 ml EF(MOD-sp4) 61.6 % EF(sp4-el) 64.5 % LVAd ap2 26.0 cm\S\2 LVLd ap2 7.5 cm EDV(MOD-sp2) 78.8 ml EDV(sp2-el) 77.2 ml LVAs ap2 14.6 cm\S\2 LVLs ap2 6.1 cm ESV(MOD-sp2) 32.9 ml ESV(sp2-el) 29.6 ml EF(MOD-sp2) 58.2 % EF(sp2-el) 61.7 % LVLd %diff 4.9 % EDV(MOD-bp) 70.8 ml LVLs %diff 4.6 % ESV(MOD-bp) 28.5 ml EF(MOD-bp) 59.7 % SV(MOD-sp4) 37.4 ml SI(MOD-sp4) 21.9 ml/m\S\2 SV(MOD-sp2) 45.8 ml SI(MOD-sp2) 26.9 ml/m\S\2 SV(MOD-bp) 42.3 ml SI(MOD-bp) 24.8 ml/m\S\2 SV(sp4-el) 39.2 ml SI(sp4-el) 23.0 ml/m\S\2 SV(sp2-el) 47.6 ml SI(sp2-el) 27.9 ml/m\S\2
[2018-01-12] MEDS: METOPROLOL TARTRATE 25 MG TAB PO SCH (21:48)
[2018-01-12] MEDS: ZOLPIDEM TARTRATE 5 MG TAB PO PRN (22:57)
[2018-01-13] VITALS (14 sets, daily range): BP systolic 104–159; BP diastolic 57–79; PULSE 62–113; TEMP 36.3–36.9; O2SAT 94–98
[2018-01-13] MEDS: LEVOTHYROXINE 75 MCG TAB PO SCH (06:25)
[2018-01-13] MEDS: HEPARIN SOD 5000 UNIT/0.5 ML CARP SQ SCH ×3 (06:26→21:36)
[2018-01-13] MEDS: ALBUT/IPRATROP 3MG/0.5MG NEB 3 ML VIAL INH SCH ×4 (07:29→19:12)
[2018-01-13] MEDS: AMPICILLIN/SULBACTAM SOD INJ 3,000 MG in SODIUM CHLORIDE 0.9% 100ML 100 ML IV SCH ×2 (08:47→21:37)
[2018-01-13] MEDS: CEROVITE ADV FORMULA TAB PO SCH (08:48)
[2018-01-13] MEDS: ASPIRIN 81 MG ECTAB PO SCH (08:48)
[2018-01-13] MEDS: BUDESONIDE/FORMOTEROL FUMARATE 160/4.5 60 PUFFS/INHALER INH SCH ×2 (08:48→21:30)
[2018-01-13] MEDS: METOPROLOL TARTRATE 25 MG TAB PO SCH ×2 (08:48→21:31)
[2018-01-13] MEDS: ROSUVASTATIN CALCIUM 20 MG TAB PO SCH (08:49)
[2018-01-13] MEDS: ZINC SULFATE 220 MG CAP PO SCH (08:49)
[2018-01-13] MEDS: FERROUS SULFATE 325 MG TAB PO SCH (08:49)
[2018-01-13] MEDS: SULFASALAZINE 500 MG TABEC PO SCH ×3 (08:49→21:33)
[2018-01-13] MEDS: CYANOCOBALAMIN 500 MCG TAB (VIT B-12) PO SCH ×2 (08:50→21:32)
[2018-01-13] MEDS: ROFLUMILAST 500 MCG TAB PO SCH (08:50)
[2018-01-13] MEDS: CITALOPRAM 20 MG TAB PO SCH (08:50)
[2018-01-13] MEDS: INSULIN ASPART 100 UNITS/ML 3 ML PEN SC SCH ×4 (08:51→21:44)
--- NOTE | 2018-01-13 13:18 | Progress Note ---
Internal Med Progress Note Date of Service: Jan 13, 2018. Provider Documentation: SUBJECTIVE: The patient was seen and examined in telemetry floor She has history of CAD status post stent, COPD on oxygen and was admitted yesterday with chest pain Denies any chest pain but complains to have dizziness on standing and on ambulation 01/13: Patient is out of bed in a chair without any symptoms Her shortness of breath is better but complains to have dizziness on ambulation wheeze has been ongoing Denies any chest pain, shortness of breath, abdominal pain, nausea and/or vomiting OBJECTIVE: Vital Signs-as noted below Exam: General-no apparent distress at rest OOB on a chair Eyes-normal ENT-normal Neck-supple, neck movements does not produce any dizziness Lungs-decreased breath sounds bilaterally with minimal wheezing Heart-regular, no murmur appreciated Abdomen-soft, benign, nontender Extremities-trace edema bilaterally Neuro-alert, awake and oriented 3 Generally weak but no focal neuro deficit Lab data as noted below. ASSESSMENT & PLAN: CHEST PAIN, SHORTNESS OF BREATH, DIZZINESS HISTORY OF CAD -Patient presenting from home with reports of chest pain, shortness of breath, dizziness that began this morning -Initial troponin negative, EKG without acute ST changes -Continue to cycle cardiac enzymes;-negative for any ACS -ECHO ; * Ejection Fraction = 55-60%. * No regional wall motion abnormalities noted. -Continue aspirin, statin, beta-catalina -Cardiology consult-appreciate input -Coreg has been changed to metoprolol -Clinically better likely discharge on Monday Dizziness -likely secondary to dehydration with low BP -Due to reports of dizziness, will check orthostatic BPs -Positive Orthostasis -try more fluid orally -Advised to take time before starting any activities POSSIBLE PNEUMONIA HISTORY OF VERY SEVERE COPD, CHRONIC CO2 RETENTION --Received IV vancomycin, IV Zosyn, IV doxycycline in the ED -Currently no wheezing on exam, saturating well on chronic 4 L; will give prednisone 40 mg x 5 days -Wewjhr-dyi-fsukn nebulizers, continue inhaled corticosteroid -Elevated d-dimer, will check V/Q and lower extremity Dopplers-Negative VQ scan -Continue IV Unasyn for now -Will give oral Augmentin on discharge RIGHT KIDD WOUND -Was started on cephalexin as an outpatient on 01/09 -Getting Unasyn as above -Wound care consult CHRONIC DIASTOLIC CHF -Appears euvolemic -Does not take routine diuretics DM TYPE II -Hgb A1c 6.0 07/2017 -Oral agents and utilize NovoLog per protocol while hospitalized CHRONIC ANEMIA -Due to CKD, currently receiving Procrit injections and oral iron replacement -Hemoglobin at baseline CROHN'S DISEASE -Continue sulfasalazine HYPOTHYROIDISM -Continue levothyroxine DVT PROPHYLAXIS -SQ heparin CODE STATUS -Patient is a full code as per my discussion with her. DISPOSITION Likely discharge on Monday Vital Signs: Date Time Temp Pulse Resp B/P (MAP) Pulse Ox O2 Delivery O2 Flow Rate FiO2 01/13/18 11:24 94 18 98 Nasal Cannula 4.0 01/13/18 09:10 99 137/66 (89) 113 142/57 (85) 62 123/60 (81) 01/13/18 08:00 Nasal Cannula 4.0 01/13/18 07:30 101 18 98 Nasal Cannula 4.0 01/13/18 07:02 36.3 98 16 152/67 (95) 98 Nasal Cannula 4.0 01/13/18 04:25 36.3 87 18 152/74 (100) 97 Nasal Cannula 4.0 01/13/18 00:00 Nasal Cannula 4.0 01/12/18 23:47 36.7 88 19 163/74 (103) 97 Nasal Cannula 4.0 01/12/18 22:54 86 147/67 (93) 83 132/52 (78) 87 116/55 (75) 01/12/18 21:45 97 152/66 (94) 01/12/18 19:47 77 18 97 Nasal Cannula 4.0 01/12/18 19:02 36.8 90 19 129/66 (87) 97 Nasal Cannula 4.0 01/12/18 16:15 91 18 94 Nasal Cannula 4.0 01/12/18 16:00 98 Nasal Cannula 4.0 BiPAP 01/12/18 15:28 36.6 93 18 167/73 (104) 98 Nasal Cannula 4.0 Lab Results: Results Past 24 Hours Test 01/12/18 16:27 01/12/18 20:22 01/12/18 22:09 01/13/18 07:30 Range/Units Bedside Glucose 155 166 103 70-90 mg/dl Troponin I 0.025 0-0.045 ng/ml
[2018-01-13] MEDS: ZOLPIDEM TARTRATE 5 MG TAB PO PRN (21:40)
[2018-01-14] VITALS (15 sets, daily range): BP systolic 117–160; BP diastolic 50–78; PULSE 75–97; TEMP 36.3–36.7; O2SAT 91–100
[2018-01-14] MEDS: LEVOTHYROXINE 75 MCG TAB PO SCH (06:24)
[2018-01-14] MEDS: HEPARIN SOD 5000 UNIT/0.5 ML CARP SQ SCH ×3 (06:27→20:31)
[2018-01-14] MEDS: ALBUT/IPRATROP 3MG/0.5MG NEB 3 ML VIAL INH SCH ×4 (07:18→19:27)
[2018-01-14] MEDS: CEROVITE ADV FORMULA TAB PO SCH (08:05)
[2018-01-14] MEDS: ZINC SULFATE 220 MG CAP PO SCH (08:07)
[2018-01-14] MEDS: ROSUVASTATIN CALCIUM 20 MG TAB PO SCH (08:07)
[2018-01-14] MEDS: SULFASALAZINE 500 MG TABEC PO SCH ×3 (08:07→20:29)
[2018-01-14] MEDS: BUDESONIDE/FORMOTEROL FUMARATE 160/4.5 60 PUFFS/INHALER INH SCH ×2 (08:08→20:28)
[2018-01-14] MEDS: CITALOPRAM 20 MG TAB PO SCH (08:08)
[2018-01-14] MEDS: ASPIRIN 81 MG ECTAB PO SCH (08:08)
[2018-01-14] MEDS: INSULIN ASPART 100 UNITS/ML 3 ML PEN SC SCH ×4 (08:12→20:30)
[2018-01-14] MEDS: METOPROLOL TARTRATE 25 MG TAB PO SCH ×2 (08:14→20:28)
[2018-01-14] MEDS: FERROUS SULFATE 325 MG TAB PO SCH (08:15)
[2018-01-14] MEDS: AMPICILLIN/SULBACTAM SOD INJ 3,000 MG in SODIUM CHLORIDE 0.9% 100ML 100 ML IV SCH ×2 (08:37→20:33)
[2018-01-14] MEDS: ROFLUMILAST 500 MCG TAB PO SCH (08:38)
[2018-01-14 08:54] LABS: HEMATOCRIT 31.8 % (37-47); HEMOGLOBIN 9.2 g/dL (12.0-16.0); MEAN CELL VOLUME 103.9 fL (80-100); MEAN CORPUSCULAR HEMOGLOBIN 30.1 pg (25-34); MEAN CORPUSCULAR HGB CONC 28.9 g/dl (32-36); MEAN PLATELET VOLUME 10.3 fL (7.4-10.4); PLATELET COUNT 179 K/uL (130-400); RED CELL DISTRIBUTION WIDTH CV 15.9 % (11.5-14.5); WHITE BLOOD COUNT 7.38 K/uL (4.8-10.8)
--- NOTE | 2018-01-14 10:55 | Progress Note ---
Internal Med Progress Note Date of Service: Jan 14, 2018. Provider Documentation: SUBJECTIVE: The patient was seen and examined in telemetry floor She has history of CAD status post stent, COPD on oxygen and was admitted yesterday with chest pain Denies any chest pain but complains to have dizziness on standing and on ambulation 01/13: Patient is out of bed in a chair without any symptoms Her shortness of breath is better but complains to have dizziness on ambulation wheeze has been ongoing Denies any chest pain, shortness of breath, abdominal pain, nausea and/or vomiting 01/14: Complaints of dizziness when ambulating Shortness of breath is better and stable Denies any other symptoms OBJECTIVE: Vital Signs-as noted below Exam: General-no apparent distress at rest OOB on a chair Eyes-normal ENT-normal Neck-supple, neck movements does not produce any dizziness Lungs-decreased breath sounds bilaterally with minimal wheezing Heart-regular, no murmur appreciated Abdomen-soft, benign, nontender Extremities-trace edema bilaterally Neuro-alert, awake and oriented 3 Generally weak but no focal neuro deficit Lab data as noted below. ASSESSMENT & PLAN: CHEST PAIN, SHORTNESS OF BREATH, DIZZINESS HISTORY OF CAD -Patient presenting from home with reports of chest pain, shortness of breath, dizziness that began this morning -Initial troponin negative, EKG without acute ST changes -Continue to cycle cardiac enzymes;-negative for any ACS -ECHO ; * Ejection Fraction = 55-60%. * No regional wall motion abnormalities noted. -Continue aspirin, statin, beta-catalina -Cardiology consult-appreciate input -Coreg has been changed to metoprolol -Clinically better likely discharge on Monday -Denies any symptoms of shortness of breath and palpitation Dizziness -likely secondary to dehydration with low BP -Due to reports of dizziness, will check orthostatic BPs -Positive Orthostasis -try more fluid orally -Advised to take time before starting any activities POSSIBLE PNEUMONIA HISTORY OF VERY SEVERE COPD, CHRONIC CO2 RETENTION --Received IV vancomycin, IV Zosyn, IV doxycycline in the ED -Currently no wheezing on exam, saturating well on chronic 4 L; will give prednisone 40 mg x 5 days -Vvyjxb-jnq-iqfgg nebulizers, continue inhaled corticosteroid -Elevated d-dimer, will check V/Q and lower extremity Dopplers-Negative VQ scan -Continue IV Unasyn for now -Will give oral Augmentin on discharge -Denies any cough and no shortness of breath RIGHT KIDD WOUND -Was started on cephalexin as an outpatient on 01/09 -Getting Unasyn as above -Wound care consult-appreciate input -Augmentin will help the wound CHRONIC DIASTOLIC CHF -Appears euvolemic -Does not take routine diuretics DM TYPE II -Hgb A1c 6.0 07/2017 -Oral agents and utilize NovoLog per protocol while hospitalized CHRONIC ANEMIA -Due to CKD, currently receiving Procrit injections and oral iron replacement -Hemoglobin at baseline CROHN'S DISEASE -Continue sulfasalazine HYPOTHYROIDISM -Continue levothyroxine DVT PROPHYLAXIS -SQ heparin CODE STATUS -Patient is a full code as per my discussion with her. DISPOSITION Likely discharge on Monday Vital Signs: Date Time Temp Pulse Resp B/P (MAP) Pulse Ox O2 Delivery O2 Flow Rate FiO2 01/14/18 08:00 Nasal Cannula 4.0 01/14/18 07:19 97 16 98 Nasal Cannula 4.0 01/14/18 07:08 36.7 87 18 160/78 (105) 100 Nasal Cannula 5.5 Humidified Oxygen 01/14/18 04:51 36.5 84 17 154/69 (97) 94 CPAP 01/14/18 00:05 Nasal Cannula 4.0 01/13/18 22:33 36.7 93 20 104/79 (87) 96 Room Air 01/13/18 19:52 36.6 99 18 159/71 (100) 97 Nasal Cannula 4.0 01/13/18 19:13 100 16 97 Nasal Cannula 4.0 01/13/18 16:00 Nasal Cannula 4.0 01/13/18 15:35 101 22 142/62 (88) 97 Nasal Cannula 3.5 01/13/18 15:32 95 20 150/67 (94) 96 Nasal Cannula 3.5 01/13/18 15:31 96 20 158/68 (98) 96 Nasal Cannula 5.0 01/13/18 15:20 93 16 97 Nasal Cannula 4.0 01/13/18 15:13 36.9 94 18 149/71 (97) 94 Nasal Cannula 3.5 01/13/18 13:12 36.7 88 18 148/63 (91) 94 Nasal Cannula 4.0 01/13/18 11:24 94 18 98 Nasal Cannula 4.0 Lab Results: Results Past 24 Hours Test 01/13/18 11:22 01/13/18 16:42 8/11/18 20:26 01/14/18 07:38 Range/Units Bedside Glucose 139 244 207 94 70-90 mg/dl Test 01/14/18 08:03 Range/Units White Blood Count 7.38 4.8-10.8 K/uL Red Blood Count 3.06 4.2-5.4 M/uL Hemoglobin 9.2 12.0-16.0 g/dL Hematocrit 31.8 37-47 % Mean Corpuscular Volume 103.9 80-100 fL Mean Corpuscular Hemoglobin 30.1 25-34 pg Mean Corpuscular Hemoglobin Concent 28.9 32-36 g/dl RDW Standard Deviation 60.0 36.4-46.3 fL RDW Coefficient of Variation 15.9 11.5-14.5 % Platelet Count 179 130-400 K/uL Mean Platelet Volume 10.3 7.4-10.4 fL
[2018-01-14] MEDS: ZOLPIDEM TARTRATE 5 MG TAB PO PRN (22:12)
[2018-01-15 04:48] VITALS: BP 148/65; PULSE 87; TEMP 36.6; O2SAT 96
[2018-01-15] MEDS: LEVOTHYROXINE 75 MCG TAB PO SCH (06:14)
[2018-01-15] MEDS: HEPARIN SOD 5000 UNIT/0.5 ML CARP SQ SCH (06:24)
--- NOTE | 2018-01-15 06:33 | Clinical Documentation Query ---
CLINICAL DOCUMENTATION QUERY 77 year old female with hx of severe COPD with complaints of worsening shortness of breath Query #1/2 In your clinical opinion is this patient being managed for: ( ) COPD exacerbation in setting of possible pneumonia treated with O2, Prednisone, IV antibiotics, and O2. ( ) Not Agree ( ) Other explanation of clinical findings (No explanation is considered a No Response) ( ) Unable to determine ( ) Need to Discuss (Phone CDS or qliq) (No discussion is considered a No Response) The medical record reflects the following clinical findings, treatment, and risk factors. Clinical Indicators: SOB. Treatment: O2, Prednisone, Duonebs, Risk Factors: Age, hx of severe COPD, pneumonia Query #2/2 Patient is a home O2 depended. In your clinical opinion is this patient being managed for: ( ) Chronic respiratory failure ( ) Not Agree ( ) Other explanation of clinical findings (No explanation is considered a No Response) ( ) Unable to determine ( ) Need to Discuss (Phone CDS or qliq) (No discussion is considered a No Response) The medical record reflects the following clinical findings, treatment, and risk factors. Clinical Indicators: Home O2 dependence Treatment: O2, Prednisone, Duonebs, Risk Factors: Age, severe COPD Please clarify and document your clinical opinion in the progress notes and discharge summary. Terms such as "probable", "suspected", "likely", "questionable", "possible", or "still to be ruled out" are acceptable. IF IN AGREEMENT, YOU MUST DOCUMENT ABOVE DIAGNOSTIC STATEMENT IN DAILY PROGRESS NOTES AND DISCHARGE SUMMARY. This document is not part of the patient's record. Thank You, Valerio Wren RN [phone] & via [email or web address]ECT
[2018-01-15 07:03] VITALS: PULSE 93; O2SAT 99
[2018-01-15] MEDS: ALBUT/IPRATROP 3MG/0.5MG NEB 3 ML VIAL INH SCH ×2 (07:03→11:20)
[2018-01-15 07:15] LABS: CALCIUM 8.5 mg/dl (8.5-10.1); CREATININE 1.07 mg/dl (0.60-1.20); PHOSPHORUS 2.2 mg/dl (2.5-4.9); POTASSIUM 3.8 mmol/L (3.5-5.1)
[2018-01-15 07:26] VITALS: BP_SYST 121; BP_SYST 154; BP_DIAS 65; PULSE 81; PULSE 89; PULSE 98; TEMP 36.6; O2SAT 100
[2018-01-15] MEDS: METOPROLOL TARTRATE 25 MG TAB PO SCH (08:29)
[2018-01-15] MEDS: BUDESONIDE/FORMOTEROL FUMARATE 160/4.5 60 PUFFS/INHALER INH SCH (08:29)
[2018-01-15] MEDS: CEROVITE ADV FORMULA TAB PO SCH (08:30)
[2018-01-15] MEDS: FERROUS SULFATE 325 MG TAB PO SCH (08:30)
[2018-01-15] MEDS: CITALOPRAM 20 MG TAB PO SCH (08:30)
[2018-01-15] MEDS: ROFLUMILAST 500 MCG TAB PO SCH (08:31)
[2018-01-15] MEDS: ASPIRIN 81 MG ECTAB PO SCH (08:31)
[2018-01-15] MEDS: CYANOCOBALAMIN 500 MCG TAB (VIT B-12) PO SCH (08:31)
[2018-01-15] MEDS: ZINC SULFATE 220 MG CAP PO SCH (08:32)
[2018-01-15] MEDS: ROSUVASTATIN CALCIUM 20 MG TAB PO SCH (08:32)
[2018-01-15] MEDS: SULFASALAZINE 500 MG TABEC PO SCH (08:33)
[2018-01-15] MEDS: INSULIN ASPART 100 UNITS/ML 3 ML PEN SC SCH ×2 (08:34→12:30)
[2018-01-15] MEDS: AMPICILLIN/SULBACTAM SOD INJ 3,000 MG in SODIUM CHLORIDE 0.9% 100ML 100 ML IV SCH (08:39)
--- NOTE | 2018-01-15 10:44 | Progress Note ---
Internal Med Progress Note Date of Service: Jan 15, 2018. Provider Documentation: SUBJECTIVE: The patient was seen and examined in telemetry floor She has history of CAD status post stent, COPD on oxygen and was admitted yesterday with chest pain Denies any chest pain but complains to have dizziness on standing and on ambulation 01/13: Patient is out of bed in a chair without any symptoms Her shortness of breath is better but complains to have dizziness on ambulation wheeze has been ongoing Denies any chest pain, shortness of breath, abdominal pain, nausea and/or vomiting 01/14: Complaints of dizziness when ambulating Shortness of breath is better and stable Denies any other symptoms 01/15: Has been feeling a lot better and wants to go home Denies any shortness of breath at rest, no chest pain and/or palpitation Still has been dizziness on ambulation but not worse Right leg wound is better OBJECTIVE: Vital Signs-as noted below Exam: General-no apparent distress at rest OOB on a chair without any symptoms Eyes-normal ENT-normal Neck-supple, neck movements does not produce any dizziness Lungs-decreased breath sounds bilaterally with minimal wheezing No crackles appreciated Heart-regular, no murmur appreciated Abdomen-soft, benign, nontender Extremities-trace edema bilaterally Small wound right lower medial martinez Advised to keep it dry and clean Neuro-alert, awake and oriented 3 Generally weak but no focal neuro deficit Lab data as noted below. ASSESSMENT & PLAN: CHEST PAIN, SHORTNESS OF BREATH, DIZZINESS HISTORY OF CAD -Patient presenting from home with reports of chest pain, shortness of breath, dizziness that began this morning -Initial troponin negative, EKG without acute ST changes -Continue to cycle cardiac enzymes;-negative for any ACS -ECHO ; * Ejection Fraction = 55-60%. * No regional wall motion abnormalities noted. -Continue aspirin, statin, beta-catalina -Cardiology consult-appreciate input -Coreg has been changed to metoprolol -Clinically better likely discharge on Monday -Denies any symptoms of shortness of breath and palpitation -No new symptoms and the chest pain resolved Dizziness -likely secondary to dehydration with low BP -Due to reports of dizziness, will check orthostatic BPs -Positive Orthostasis -try more fluid orally -Advised to take time before starting any activities POSSIBLE PNEUMONIA HISTORY OF VERY SEVERE COPD, CHRONIC CO2 RETENTION --Received IV vancomycin, IV Zosyn, IV doxycycline in the ED -Currently no wheezing on exam, saturating well on chronic 4 L; will give prednisone 40 mg x 5 days -Mhcgxi-riu-cywit nebulizers, continue inhaled corticosteroid -Elevated d-dimer, will check V/Q and lower extremity Dopplers-Negative VQ scan -Continue IV Unasyn for now -Will give oral Augmentin on discharge -Denies any cough and no shortness of breath -We will finish the course of antibiotic as an outpatient RIGHT MARTINEZ WOUND -Was started on cephalexin as an outpatient on 01/09 -Getting Unasyn as above -Wound care consult-appreciate input -Augmentin will help the wound -Advised to keep the wound clean and dry CHRONIC DIASTOLIC CHF -Appears euvolemic -Does not take routine diuretics DM TYPE II -Hgb A1c 6.0 07/2017 -Oral agents and utilize NovoLog per protocol while hospitalized CHRONIC ANEMIA -Due to CKD, currently receiving Procrit injections and oral iron replacement -Hemoglobin at baseline-more than 9.2 -Creatinine is stable CROHN'S DISEASE -Continue sulfasalazine -No active symptoms of Crohn's HYPOTHYROIDISM -Continue levothyroxine DVT PROPHYLAXIS -SQ heparin CODE STATUS -Patient is a full code as per my discussion with her. DISPOSITION Discussed with daughter he in detail We will discharge this afternoon Vital Signs: Date Time Temp Pulse Resp B/P (MAP) Pulse Ox O2 Delivery O2 Flow Rate FiO2 01/15/18 07:26 36.6 89 18 154/65 (94) 100 3.5 81 154/65 (94) 98 121/65 (83) 01/15/18 07:03 93 16 99 Nasal Cannula 4.0 01/15/18 04:48 36.6 87 18 148/65 (92) 96 BiPAP 01/15/18 00:00 Nasal Cannula 4.0 01/14/18 22:35 134/50 (78) 01/14/18 22:35 117/56 (76) 01/14/18 22:34 36.7 83 18 136/63 (87) 97 CPAP 01/14/18 19:27 87 18 96 Nasal Cannula 4.0 01/14/18 19:17 92 125/67 (86) 93 Nasal Cannula 4.0 01/14/18 19:16 92 123/58 (79) 92 Nasal Cannula 4.0 01/14/18 19:15 36.6 89 18 135/60 (85) 98 Nasal Cannula 4.0 01/14/18 16:00 Nasal Cannula 4.0 01/14/18 15:10 90 18 97 Nasal Cannula 4.0 01/14/18 15:09 36.3 89 18 147/73 (97) 98 Nasal Cannula 4.0 01/14/18 11:22 85 130/56 (80) 01/14/18 11:20 79 138/66 (90) 01/14/18 11:19 36.7 75 18 138/69 (92) 99 Nasal Cannula 4.0 01/14/18 11:12 93 18 91 Nasal Cannula 4.0 Lab Results: Results Past 24 Hours Test 01/14/18 11:35 01/14/18 16:33 01/14/18 19:59 01/15/18 05:50 Range/Units Bedside Glucose 124 194 211 70-90 mg/dl Sodium Level 141 136-145 mmol/L Potassium Level 3.8 3.5-5.1 mmol/L Chloride Level 100 98-107 mmol/L Carbon Dioxide Level 38 21-32 mmol/L Anion Gap 3.0 3-11 mmol/L Blood Urea Nitrogen 14 7-18 mg/dl Creatinine 1.07 0.60-1.20 mg/dl Est Creatinine Clear Calc Drug Dose 38.9 ml/min Estimated GFR () 57.2 Estimated GFR (Non- 49.3 BUN/Creatinine Ratio 12.9 10-20 Random Glucose 83 70-99 mg/dl Calcium Level 8.5 8.5-10.1 mg/dl Phosphorus Level 2.2 2.5-4.9 mg/dl Magnesium Level 2.5 1.8-2.4 mg/dl Test 01/15/18 07:41 Range/Units Bedside Glucose 95 70-90 mg/dl
[2018-01-15] MEDS ORDERED: AMOX1TAB43 PO (11:13)
[2018-01-15] MEDS ORDERED: LCTX PO (11:13)
[2018-01-15] MEDS ORDERED: PRED10TA PO (11:13)
[2018-01-15] MEDS ORDERED: LPR25 PO (11:13)
--- NOTE | 2018-01-15 11:15 | Discharge Instructions ---
Discharge Instructions Date of Service Jan 15, 2018. Admission Reason for Admission: Pneumonia Discharge Discharge Diagnosis / Problem: Chest pain-No ACS and resolved,COPD exacerbation Discharge Goals Goal(s): Prevent Disease Progression Activity Recommendations Activity Limitations: resume your previous activity . Instructions / Follow-Up Instructions / Follow-Up Dr Samano on01/18/18 at 11:05 AM.Routine cardiology follow up Current Hospital Diet Patient's current hospital diet: AHA Diet (Heart Healthy), Diabetes Type 2 Diet Discharge Diet Recommended Diet: AHA Diet (Heart Healthy), Diabetes Type 2 Diet Pending Studies Studies pending at discharge: no Medical Emergencies . Who to Call and When: Medical Emergencies: If at any time you feel your situation is an emergency, please call 911 immediately. . Non-Emergent Contact Non-Emergency issues call your: Primary Care Provider . Past History Medical & Surgical History: (1) Chest pain (2) Diabetes mellitus type 2 (3) Chronic obstructive lung disease (4) Benign hypertension (5) Hypothyroidism (6) Anemia of chronic disease (7) Carotid stenosis, bilateral (8) Diastolic CHF (9) History of colostomy (10) S/P tonsillectomy and adenoidectomy (11) S/P hysterectomy (12) S/P cardiac cath . "Provider Documentation" section prepared by Kirsty iFsher. .
[2018-01-15 11:20] VITALS: PULSE 83; O2SAT 97
[2018-01-15 11:35] VITALS: PULSE 82; TEMP 36.6; O2SAT 97
--- NOTE | 2018-01-15 11:42 | Discharge Summary ---
Discharge Summary Date of Service Jan 15, 2018. Discharge Summary Admission Date: Jan 14, 2018 at 13:59 Discharge Date: Jan 15, 2018 Discharge Disposition: Home Principal Diagnosis: Chest pain-No ACS and resolved,COPD exacerbation,Pneumonia Secondary Diagnoses/Problems: Please see H&P and Hospital progress note Medication Reconciliation New Medications: Lactobacillus Acidophilus (Lactinex) Tab 2 TAB PO BID, #30 TAB Prednisone Tab (Prednisone) 10 Mg Tab 10 MG PO UD for 9 Days, #18 TAB 3 po daily for 3 days ,2 po daily for 3 days and then 1 po daily for 3 days Amoxicillin & Pot Clavulanate (Amoxicillin/Clavulanate P) 1 Tab Tab 875 MG PO BIDM for 4 Days, #8 TAB Metoprolol Tartrate (Lopressor) 25 Mg Tab 25 MG PO BID for 30 Days, #60 TAB Continued Medications: Aspirin ([place] Low Dose Aspiri) 81 Mg Chw 81 MG PO DAILY Budesonide/Formoterol Fumarate (Symbicort 160/4.5 Inhaler) 120 Puffs/ Aero 2 PUFFS INH BID, #10.6 GM 3 Refills Citalopram Hydrobromide (Celexa) 10 Mg Tab 10 MG PO DAILY Cyanocobalamin (Vitamin B-12) 1,000 Mcg Tab 1000 MCG PO DAILY Epoetin Zeke (Procrit) 10,000 Units Inj 1 DOSE SQ every 2 weeks Ferrous Sulfate (Kp Ferrous Sulfate) 325 Mg Tab 1 TAB PO DAILY for 30 Days, #30 TAB 3 Refills Folic Acid (Folvite) 1 Mg Tab 1 MG PO DAILY Ipratropium [place] (Atrovent Hfa) 200 Puffs/3400 Mcg Aers 2 PUFFS INH QID Ipratropium-Albuterol (Duoneb) 3 Ml Nebu 1 TREATMENT INH QID, INHA Levothyroxine Sodium (Levothyroxine Sodium) 75 Mcg Tab 75 MCG PO DAILY Multiple Vitamins W/ Minerals (Preservision Areds 2) 1 Cap Cap 1 CAP PO DAILY Roflumilast (Daliresp) 500 Mcg Tab 500 MCG PO DAILY Rosuvastatin Calcium (Crestor) 20 Mg Tab 20 MG PO DAILY Sitagliptin Phosphate (Januvia) 25 Mg Tab 25 MG PO DAILY Sulfasalazine (Sulfasalazine) 500 Mg Tabec 1000 MG PO TID TWO 500 MG TABLETS PER DOSE Torsemide (Torsemide) 20 Mg Tab 20-40 MG PO DAILY PRN for EDEMA 1-2 TABLETS DAILY NEEDED Zinc (Zinc) 50 Mg Tab 50 MG PO DAILY Discontinued Medications: Carvedilol (Coreg) 6.25 Mg Tab 6.25 MG PO BIDM Cephalexin Monohydrate (Keflex) 250 Mg Cap 250 MG PO BID X 10 DAYS (STARTED 01/09/18) Admission Information HPI (per Admitting provider): 77-year-old female who presents the ED with chest pain, shortness of breath, dizziness. Patient reports that she did not feel well whenever she woke up this morning. When she got up out of bed she reports she felt very dizzy and then developed a midsternal chest pain and felt very short of breath. She then called her daughter who noted she was having a hard time breathing. She uses nebulizer treatment at home however did not notice much change in her symptoms. EMS was then called the patient was given 4 baby aspirin which she reports improved her pain. Patient reports the chest discomfort is located midsternally and she describes as a pressure. No radiation of the pain into the jaw, neck, shoulder, arm. She has a very severe COPD and chronically wears 4 L of oxygen. She has a chronic cough that is productive for green/yellow sputum at times. There has been no change in this. She denies fevers and chills. No syncopal events. She denies abdominal pain, nausea, vomiting. She has a colostomy and denies changes in output. No urinary symptoms. In the ED, patient is saturating well on her chronic 4 L of oxygen. Chest x-ray suggests a possible right basilar pneumonia. In the ED, she was given IVF, nebulizer treatment, IV Zosyn, IV vancomycin, and IV doxycycline. Physical Exam (per Admitting): General Appearance: WD/WN, no apparent distress Head: normocephalic, atraumatic Eyes: normal inspection, EOMI, sclerae normal ENT: hearing grossly normal, + pertinent finding (Mucous membranes moist) Neck: supple, no JVD, trachea midline Respiratory/Chest: no respiratory distress, + decreased breath sounds (Poor air entry noted throughout all lung loera) Cardiovascular: regular rate, rhythm, no edema, normal peripheral pulses Abdomen/GI: normal bowel sounds, non tender, soft, no organomegaly, + pertinent finding (Colostomy in place) Extremities/Musculoskelatal: normal inspection, no calf tenderness, normal capillary refill Neurologic/Psych: no motor/sensory deficits, alert, normal mood/affect, oriented x 3 Skin: normal color, warm/dry, + pertinent finding (Wound noted to right anterior martinez with some mild surrounding erythema) Hospital Course CHEST PAIN, SHORTNESS OF BREATH, DIZZINESS HISTORY OF CAD -Patient presenting from home with reports of chest pain, shortness of breath, dizziness that began this morning -Initial troponin negative, EKG without acute ST changes -Continue to cycle cardiac enzymes;-negative for any ACS -ECHO ; * Ejection Fraction = 55-60%. * No regional wall motion abnormalities noted. -Continue aspirin, statin, beta-catalina -Cardiology consult-appreciate input -Coreg has been changed to metoprolol -Clinically better likely discharge on Monday -Denies any symptoms of shortness of breath and palpitation -No new symptoms and the chest pain resolved Dizziness -likely secondary to dehydration with low BP -Due to reports of dizziness, will check orthostatic BPs -Positive Orthostasis -try more fluid orally -Advised to take time before starting any activities POSSIBLE PNEUMONIA HISTORY OF VERY SEVERE COPD, CHRONIC CO2 RETENTION --Received IV vancomycin, IV Zosyn, IV doxycycline in the ED -Currently no wheezing on exam, saturating well on chronic 4 L; will give prednisone 40 mg x 5 days -Etgulm-cht-cddey nebulizers, continue inhaled corticosteroid -Elevated d-dimer, will check V/Q and lower extremity Dopplers-Negative VQ scan -Continue IV Unasyn for now -Will give oral Augmentin on discharge -Denies any cough and no shortness of breath -We will finish the course of antibiotic as an outpatient RIGHT MARTINEZ WOUND -Was started on cephalexin as an outpatient on 01/09 -Getting Unasyn as above -Wound care consult-appreciate input -Augmentin will help the wound -Advised to keep the wound clean and dry CHRONIC DIASTOLIC CHF -Appears euvolemic -Does not take routine diuretics DM TYPE II -Hgb A1c 6.0 07/2017 -Oral agents and utilize NovoLog per protocol while hospitalized CHRONIC ANEMIA -Due to CKD, currently receiving Procrit injections and oral iron replacement -Hemoglobin at baseline-more than 9.2 -Creatinine is stable CROHN'S DISEASE -Continue sulfasalazine -No active symptoms of Crohn's HYPOTHYROIDISM -Continue levothyroxine DVT PROPHYLAXIS -SQ heparin CODE STATUS -Patient is a full code as per my discussion with her. DISPOSITION Discussed with daughter he in detail We will discharge this afternoon Total time spent on discharge = 35 minutes This includes examination of the patient, discharge planning, medication reconciliation, and communication with other providers. Discharge Instructions Date of Service Jan 15, 2018. Admission Reason for Admission: Pneumonia Discharge Discharge Diagnosis / Problem: Chest pain-No ACS and resolved,COPD exacerbation Discharge Goals Goal(s): Prevent Disease Progression Activity Recommendations Activity Limitations: resume your previous activity . Instructions / Follow-Up Instructions / Follow-Up Dr Samano on01/18/18 at 11:05 AM.Routine cardiology follow up Current Hospital Diet Patient's current hospital diet: AHA Diet (Heart Healthy), Diabetes Type 2 Diet Discharge Diet Recommended Diet: AHA Diet (Heart Healthy), Diabetes Type 2 Diet,Make it Slippery and precaution to prevent aspiration Pending Studies Studies pending at discharge: no Medical Emergencies . Who to Call and When: Medical Emergencies: If at any time you feel your situation is an emergency, please call 911 immediately. . Non-Emergent Contact Non-Emergency issues call your: Primary Care Provider . Past History Medical & Surgical History: (1) Chest pain (2) Diabetes mellitus type 2 (3) Chronic obstructive lung disease (4) Benign hypertension (5) Hypothyroidism (6) Anemia of chronic disease (7) Carotid stenosis, bilateral (8) Diastolic CHF (9) History of colostomy (10) S/P tonsillectomy and adenoidectomy (11) S/P hysterectomy (12) S/P cardiac cath . "Provider Documentation" section prepared by Kirsty Fisher. . <Electronically signed by Kirsty Fisher M.D.> Signed: 01/15/18 [id number] Additional Copies To Hakan Samano M.D.
[2018-01-15 12:38] VITALS: BP 121/65; PULSE 82; TEMP 36.6; O2SAT 97
[2018-01-15] MEDS ORDERED: AMOXICILLIN/CLAVULANATE TAB 875 MG TAB PO SCH (17:00)
== END 2018-01-15 13:30 | disposition home health service (06) | DRG 190 ==
LOC: EDBD 12:11 → C.EDC 12:12 → C.MED 14:43 → ENRESERV 15:22 → OBSVTOIN 01-14 13:59
PROVIDERS: ADMIT Internal Medicine; ATTEND Internal Medicine
DX: J44.1 Chronic obstructive pulmonary disease with (acute) exacerbation (principal); I50.32 Chronic diastolic (congestive) heart failure; J18.9 Pneumonia, unspecified organism; I13.0 Hypertensive heart and chronic kidney disease with heart failure and stage 1 through stage 4 chronic kidney disease, or unspecified chronic kidney disease; K50.90 Crohn's disease, unspecified, without complications; D64.9 Anemia, unspecified; N18.3 Chronic kidney disease, stage 3 (moderate); I25.10 Atherosclerotic heart disease of native coronary artery without angina pectoris; E11.21 Type 2 diabetes mellitus with diabetic nephropathy; M81.0 Age-related osteoporosis without current pathological fracture; Z93.3 Colostomy status; Z80.1 Family history of malignant neoplasm of trachea, bronchus and lung; Z87.891 Personal history of nicotine dependence; Z88.1 Allergy status to other antibiotic agents; R09.02 Hypoxemia; I65.23 Occlusion and stenosis of bilateral carotid arteries; Z99.81 Dependence on supplemental oxygen; Z95.5 Presence of coronary angioplasty implant and graft; R42 Dizziness and giddiness